=== PATIENT | male | born 1940 | race Caucasian/White ===

== ENCOUNTER 2016-07-08 14:29 | Inpatient (IN) ==
[2016-07-08] MEDS ORDERED: SODIUM CHLORIDE 0.9% 500 ML IV STA (15:41)
--- NOTE | 2016-07-08 16:02 | EKG Report ---
Stationary ECG Study [facility] ER Test Date: 07/08/2016 4:00:39 PM Pat Name: KERON PATEL Department: Room: Gender: M [employer]: REECE : 1940 Requested by: Albert Linder Order Number: [id number] Reading MD: DESTINI FOSTER Intervals [place] Rate: 100 P: 60 WA: 175 QRS: 64 QRSD: 95 T: -59 QT: 329 QTc: 386 Interpretive Statements SINUS TACHYCARDIA WITH OCCASIONAL VENTRICULAR PREMATURE COMPLEXES MODERATE T-WAVE ABNORMALITY, CONSIDER LATERAL ISCHEMIA MODERATE T-WAVE ABNORMALITY, CONSIDER INFERIOR ISCHEMIA Electronically Signed On 07-08-16 17:09:01 [employer]PERIMENT[employer] by DESTINI FOSTER [email or web address]
[2016-07-08 16:10] LABS: Basophils # 0.1 10*3/uL (0.0-0.2); Basophils % 0.3 % (0.0-0.8); Eosinophils # 0.1 10*3/uL (0.0-0.87); Eosinophils % 0.4 % (0.00-10.9); Hematocrit 43.1 VOL% (42.0-52.0); Hemoglobin 14.1 GM/DL (14.0-18.0); Immature Granulocytes % 0.7 %; Immature Granulocytes Absolute 0.22 #; Lymphocytes # 12.8 10*3/uL (1.4-4.0); Mean Corpuscular HGB Conc 32.7 GM/DL (32-36); Mean Corpuscular Hemoglobin 30 PG (27-34); Mean Corpuscular Volume 92.5 FL (87-102); Mean Platelet Volume 10.9 FL (9.6-12.0); Monocytes # 2.2 10*3/uL (0.11-0.8); Neutrophils # 16.5 10*3/uL (1.4-7.4); Neutrophils % 51.6 % (38.7-73.9); Platelet Count 168 10*3/uL (130-400); Red Blood Count 4.66 10*6/uL (3.8-5.5); Red Cell Distribution Width 14.2 % (9.3-17.3); White Blood Count 31.9 10*3/uL (4.5-13.71)
[2016-07-08 16:40] LABS: Blood Urea Nitrogen 16 MG/DL (7-18); Calcium 8.6 MG/DL (8.5-10.1); Glucose 127 MG/DL (74-106); Magnesium 2.2 MG/DL (1.8-2.4); Osmolality,Calculated 290.7 MOS/KG (273-304); Potassium 4.2 MMOL/L (3.5-5.1); Sodium 145 MMOL/L (136-145); Troponin I Only < 0.015 NG/ML (0.00-0.045)
--- NOTE | 2016-07-08 16:51 | XRay Report ---
XR chest 1V portable Indication: Shortness of breath and chest pain. Chest one view: Comparison 11/24/13. Pacemaker device, borderline cardiomegaly, postoperative changes median sternotomy are again shown. Diffuse parabronchial thickening has developed throughout. No discrete infiltrate shown. Calcified granulomata are stable. Impression: Mild/moderate airways disease such as bronchitis or viral syndrome. PROCEDURE INTERPRETED AT [facility] DEPARTMENT OF RADIOLOGY Final Report Signed by: Zheng Spangler M.D.
[2016-07-08] MEDS ORDERED: SODIUM CHLORIDE 0.9% 1,000 ML IV ONE (17:11)
--- NOTE | 2016-07-08 17:41 | XRay Report ---
XR abdomen 2V Indication: Nausea and vomiting with fever. Comparison: None. Technique: Flat and erect images of the abdomen were performed. Findings: Focal airspace opacification along the lateral aspect of the mid to lower right lung is suggested. This could reflect developing infectious process. Additionally, bilateral perihilar interstitial markings are prominent which are non-specific and may reflect chronic interstitial disease. Previous bypass surgery is suggested and AICD is present. Gallbladder surgically absent. No organomegaly suggested. The bowel gas pattern demonstrates no significant abnormality. Bones and soft tissues demonstrate no acute findings. Moderately advanced calcification of the femoral arteries is suggested. Impression: 1. No specific abnormality the bowel gas pattern is demonstrated. 2. Infectious process within the mid right lung involving the lateral parenchyma of the lung could be considered as detailed. 07/08/2016 5:37 PM PROCEDURE INTERPRETED AT [facility] DEPARTMENT OF RADIOLOGY Final Report Signed by: Dr. Martín Torres
[2016-07-08 17:54] LABS: Albumin 3.5 G/DL (3.4-5.0); Bilirubin,Direct 0.2 MG/DL (0.0-0.20); Bilirubin,Indirect 0.6 MG/DL (0.0-1.0); Bilirubin,Total 0.8 MG/DL (0.2-1.0); Total Protein 6.1 G/DL (6.4-8.3)
[2016-07-08] MEDS ORDERED: SODIUM CHLORIDE 0.9% 2,500 ML IV ONE (17:59)
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
[2016-07-08] MEDS ORDERED: SODIUM CHLORIDE 0.9% 500 ML IV ONE (18:50)
[2016-07-08 19:12] LABS: Apearance,Urine CLEAR (Clear); Bilirubin,Urine Negative (Negative); Blood, Urine Negative (Negative); Glucose,Urine (UA) Negative (Negative); Ketones,Urine Negative (Negative); Nitrite,Urine Negative (Negative); Protein,Urine Negative; Squamous Epithelial Cell,Urine Occasional /HPF (0-10); Urine Color Yellow (Yellow); Urine Specific Gravity 1.013 (1.001-1.035); Urine Urobilinogen < 2.0 EU/DL (0.2-1.0); WBC,Urine 1 /HPF (0-6)
[2016-07-08 19:14] LABS: Eosinophils 1 % (0-10); Lymphocytes 25 % (20-55); Platelet Estimate Normal; Segmented Neutrophils 68 % (50-85); Total Cells Counted 100
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
[2016-07-08] MEDS ORDERED: DEXTROSE 50% 25 GM/50 ML VIAL IV PRN (19:57)
[2016-07-08] MEDS ORDERED: GLUCAGON 1 MG VIAL IM PRN (19:57)
[2016-07-08] MEDS ORDERED: ONDANSETRON 4 MG/2 ML VIAL IV PRN (19:57)
[2016-07-08] MEDS: SODIUM CHLORIDE 0.9% 1,000 ML IV SCH (20:15)
[2016-07-08] MEDS ORDERED: AZTREONAM 2,000 MG in SODIUM CHLORIDE 0.9% 100 ML IV SCH (21:00)
[2016-07-08] MEDS ORDERED: SODIUM CHLORIDE 0.9% 1,000 ML IV SCH (21:20)
[2016-07-08] MEDS: LEVOFLOXACIN INJ 750 MG in PREMIX 1 EACH IV SCH (22:07)
[2016-07-08] MEDS: ENOXAPARIN 40 MG/0.4 ML SYRINGE SUBCUT SCH (22:11)
[2016-07-08] MEDS: BRIMONIDINE 0.1% OPH SOLN 5 ML BOTTLE BOTH EYES SCH (22:12)
[2016-07-08] MEDS: BENZONATATE 100 MG CAPSULE PO SCH (22:14)
[2016-07-08] MEDS: TAMSULOSIN 0.4 MG CAPSULE PO SCH (22:15)
[2016-07-08] MEDS: TEMAZEPAM 15 MG CAPSULE PO SCH (22:15)
[2016-07-08] MEDS: GABAPENTIN 300 MG CAPSULE PO SCH (22:15)
[2016-07-08] MEDS: THEOPHYLLINE ER 300 MG TABLET PO SCH (22:33)
[2016-07-08] MEDS: FLUTICASONE 50 MCG NASAL SPRAY 16 GM BOTTLE BOTH NARES SCH (22:34)
[2016-07-08] MEDS: INSULIN REGULAR 100 UNIT/ML SUBCUT SCH (22:35)
[2016-07-09] MEDS: AZTREONAM 2,000 MG in SODIUM CHLORIDE 0.9% 100 ML IV SCH ×4 (00:06→17:05)
[2016-07-09 06:43] LABS: Basophils # 0.1 10*3/uL (0.0-0.2); Basophils % 0.2 % (0.0-0.8); Eosinophils # 0.2 10*3/uL (0.0-0.87); Eosinophils % 0.7 % (0.00-10.9); Hematocrit 37.7 VOL% (42.0-52.0); Immature Granulocytes % 0.7 %; Immature Granulocytes Absolute 0.14 #; Lymphocytes % 47.2 % (21.2-54.2); Mean Corpuscular HGB Conc 31.8 GM/DL (32-36); Mean Corpuscular Hemoglobin 30 PG (27-34); Mean Corpuscular Volume 95.2 FL (87-102); Mean Platelet Volume 10.9 FL (9.6-12.0); Monocytes # 1.6 10*3/uL (0.11-0.8); Monocytes % 7.7 % (1.7-12.7); Neutrophils # 9.2 10*3/uL (1.4-7.4); Neutrophils % 43.5 % (38.7-73.9); Platelet Count 130 10*3/uL (130-400); Red Blood Count 3.96 10*6/uL (3.8-5.5); Red Cell Distribution Width 14.3 % (9.3-17.3); White Blood Count 21.2 10*3/uL (4.5-13.71)
[2016-07-09 07:13] LABS: Calcium 8.1 MG/DL (8.5-10.1); Osmolality,Calculated 293.3 MOS/KG (273-304); Potassium 4.1 MMOL/L (3.5-5.1)
[2016-07-09 07:31] LABS: Eosinophils 1 % (0-10); Hypochromasia 1+; Lymphocytes 36 % (20-55); Platelet Estimate Normal; Segmented Neutrophils 52 % (50-85); Total Cells Counted 100
[2016-07-09] MEDS: ALBUTEROL/IPRATROPIUM 3 ML NEB RESP TX SCH ×4 (07:51→19:31)
[2016-07-09] MEDS: FINASTERIDE 5 MG TABLET PO SCH (08:33)
[2016-07-09] MEDS: LISINOPRIL 5 MG TABLET PO SCH (08:33)
[2016-07-09] MEDS: THEOPHYLLINE ER 300 MG TABLET PO SCH ×2 (08:33→17:02)
[2016-07-09] MEDS: GABAPENTIN 300 MG CAPSULE PO SCH ×3 (08:33→20:24)
[2016-07-09] MEDS: CARVEDILOL 12.5 MG TABLET PO SCH ×2 (08:33→17:02)
[2016-07-09] MEDS: DUTASTERIDE 0.5 MG CAPSULE PO SCH (08:33)
[2016-07-09] MEDS: metFORMIN 500 MG TABLET PO SCH ×2 (08:34→17:05)
[2016-07-09] MEDS: TAMSULOSIN 0.4 MG CAPSULE PO SCH ×2 (08:34→20:21)
[2016-07-09] MEDS: FUROSEMIDE 40 MG TABLET PO SCH (08:34)
[2016-07-09] MEDS: MULTIVITAMIN (CENTRUM) TABLET PO SCH (08:34)
[2016-07-09] MEDS: SPIRONOLACTONE 25 MG TABLET PO SCH (08:34)
[2016-07-09] MEDS: SIMVASTATIN 40 MG TABLET PO SCH (08:34)
[2016-07-09] MEDS: ALLOPURINOL 300 MG TABLET PO SCH (08:34)
[2016-07-09] MEDS: ASPIRIN EC 325 MG TABLET PO SCH (08:34)
[2016-07-09] MEDS: GLIMEPIRIDE 4 MG TABLET PO SCH (08:34)
[2016-07-09] MEDS: BENZONATATE 100 MG CAPSULE PO SCH (08:34)
[2016-07-09] MEDS: INSULIN REGULAR 100 UNIT/ML SUBCUT SCH ×4 (08:36→21:21)
[2016-07-09] MEDS: BRIMONIDINE 0.1% OPH SOLN 5 ML BOTTLE BOTH EYES SCH ×3 (08:40→20:22)
--- NOTE | 2016-07-09 09:10 | Oncology Progress Note ---
Oncology Subjective PN Interval history: Patient followed for approximately 2 years with untreated CLL. He is followed by Dr. Kirk Myers and Dr. Mary Carrington. He is admitted with malaise and chills. He states he had a hard shaking chills 3 weeks ago which required an electric blanket to resolve the episode. This similar feeling recurred yesterday and he sought medical care and was admitted overnight. This morning he appears nontoxic. He does report a clinical history of COPD. He is receiving aggressive antibiotics at this time. He has an acceptable hemoglobin and platelet count. Today's white blood cell count is 21,000 which is not felt to be changed significantly from prior baseline levels. No specific leukemia recommendations. Continue treatment as ordered Exam - Constitutional Vitals: Period Temp Pulse Resp BP Sys/Umana Pulse Ox Last 24 Hr 98.2 F-99.6 F 63-91 16-20 91-107/42-53 96-100 Results - Labs CBC & BMP: 07/09/16 06:25 07/09/16 06:25 Specialty Discharge - Follow Up or Referrals - Discharge Medications No Action Allopurinol 300 mg PO DAILY Benzonatate 100 mg PO TID Brimonidine 0.1% Oph Soln [Alphagan P 0.1% Oph Soln] 1 drop BOTH EYES TID Carvedilol [Carvedilol] 12.5 mg PO BID W/MEALS Dutasteride [Avodart] 0.5 mg PO DAILY Finasteride [Finasteride] 5 mg PO DAILY Fluticasone 50 Mcg Nasal [place] [Flonase Nasal [place]] 1 spray BOTH NARES DAILY Gabapentin [Gabapentin] 300 mg PO TID Glimepiride 4 mg PO DAILY Lisinopril [Lisinopril] 5 mg PO DAILY Multivitamin [Multivitamins] 1 tablet PO DAILY Simvastatin [Simvastatin] 40 mg PO DAILY Spironolactone [Spironolactone] 25 mg PO DAILY Tamsulosin HCl [Tamsulosin HCl] 0.4 mg PO BID Temazepam [Temazepam] 30 mg PO BEDTIME Theophylline ER Tab 300 mg PO BID W/MEALS Albuterol/Ipratropium Neb [Duoneb] 3 ml RESP TX RT Q6H Aspirin EC Tab 325 mg PO DAILY Furosemide [Furosemide] 40 mg PO DAILY Metformin HCl [Metformin HCl] 500 mg PO BID W/MEALS
[2016-07-09] MEDS: ACETAMINOPHEN 325 MG TABLET PO PRN (09:36)
[2016-07-09] MEDS: DOXYCYCLINE HYCLATE INJ 100 MG in SODIUM CHLORIDE 0.9% 100 ML IV SCH ×2 (09:37→20:22)
[2016-07-09] MEDS: SODIUM CHLORIDE 0.9% 1,000 ML IV SCH ×3 (09:37→21:22)
--- NOTE | 2016-07-09 11:22 | Hospitalist Progress Note ---
Assessment and Plan (1) CLL (chronic lymphocytic leukemia) Status: Acute Assessment and plan: seen by Oncology appreciate input Current Visit: Yes (2) Hypertension Status: Chronic Current Visit: Yes Qualifiers: Hypertension type: essential hypertension Qualified Code(s): I10 - Essential (primary) hypertension (3) Diabetes mellitus Status: Chronic Current Visit: Yes Qualifiers: Diabetes mellitus type: type 2 (4) Upper respiratory infection Status: Acute Assessment and plan: cannot completely exclude PNA, continue abx, PRN cough medicine Current Visit: Yes Hospitalist: Subjective Interval history: 75-year-old male with history of CLL who presented complaining of her respiratory symptoms. On presentation had a white count 21,[address] Renae to be his baseline. Currently he states his little better still have states dry cough. Exam - Constitutional Vitals: Period Temp Pulse Resp BP Sys/[place] Pulse Ox Last 24 Hr 97.7 F-99.6 F 63-91 16-20 91-118/42-56 96-100 General appearance: no acute distress - Head Head exam: Present: normocephalic, atraumatic - Eye Eye exam: Present: EOMI Pupils: Present: VISHAL - Neck Neck exam: Present: normal inspection - Respiratory Respiratory exam: Present: clear to auscultation bilaterally, other (dry hacking cough) - Cardiovascular Cardiovascular exam: Present: regular rate and rhythm - GI/Abdominal GI/Abdominal exam: Present: normal bowel sounds, soft - Extremities Exam Extremities exam: Present: full ROM - Neurological Exam Neurological exam: Present: alert, oriented X3, CN II-XII intact - Psychiatric Psychiatric exam: Present: normal affect, normal mood - Skin Skin exam: Present: warm, intact Results - Labs CBC & BMP: 07/09/16 06:25 07/09/16 06:25 Specialty Discharge - Follow Up or Referrals - Discharge Medications No Action Allopurinol 300 mg PO DAILY Benzonatate 100 mg PO TID Brimonidine 0.1% Oph Soln [Alphagan P 0.1% Oph Soln] 1 drop BOTH EYES TID Carvedilol [Carvedilol] 12.5 mg PO BID W/MEALS Dutasteride [Avodart] 0.5 mg PO DAILY Finasteride [Finasteride] 5 mg PO DAILY Fluticasone 50 Mcg Nasal [place] [Flonase Nasal [place]] 1 spray BOTH NARES DAILY Gabapentin [Gabapentin] 300 mg PO TID Glimepiride 4 mg PO DAILY Lisinopril [Lisinopril] 5 mg PO DAILY Multivitamin [Multivitamins] 1 tablet PO DAILY Simvastatin [Simvastatin] 40 mg PO DAILY Spironolactone [Spironolactone] 25 mg PO DAILY Tamsulosin HCl [Tamsulosin HCl] 0.4 mg PO BID Temazepam [Temazepam] 30 mg PO BEDTIME Theophylline ER Tab 300 mg PO BID W/MEALS Albuterol/Ipratropium Neb [Duoneb] 3 ml RESP TX RT Q6H Aspirin EC Tab 325 mg PO DAILY Furosemide [Furosemide] 40 mg PO DAILY Metformin HCl [Metformin HCl] 500 mg PO BID W/MEALS
[2016-07-09] MEDS: ENOXAPARIN 40 MG/0.4 ML SYRINGE SUBCUT SCH (19:29)
[2016-07-09] MEDS: TEMAZEPAM 15 MG CAPSULE PO SCH (20:21)
[2016-07-09] MEDS: LEVOFLOXACIN INJ 750 MG in PREMIX 1 EACH IV SCH (20:22)
[2016-07-09] MEDS: FLUTICASONE 50 MCG NASAL SPRAY 16 GM BOTTLE BOTH NARES SCH (20:22)
[2016-07-10] MEDS: ALBUTEROL/IPRATROPIUM 3 ML NEB RESP TX SCH ×4 (00:39→19:31)
[2016-07-10] MEDS: AZTREONAM 2,000 MG in SODIUM CHLORIDE 0.9% 100 ML IV SCH ×5 (01:02→23:03)
[2016-07-10] MEDS: SODIUM CHLORIDE 0.9% 1,000 ML IV SCH ×4 (02:22→21:05)
[2016-07-10 06:50] LABS: Basophils # 0.1 10*3/uL (0.0-0.2); Basophils % 0.2 % (0.0-0.8); Eosinophils # 0.2 10*3/uL (0.0-0.87); Eosinophils % 0.8 % (0.00-10.9); Hematocrit 36.5 VOL% (42.0-52.0); Hemoglobin 11.6 GM/DL (14.0-18.0); Immature Granulocytes % 0.6 %; Immature Granulocytes Absolute 0.14 #; Lymphocytes # 12.6 10*3/uL (1.4-4.0); Lymphocytes % 53.4 % (21.2-54.2); Mean Corpuscular HGB Conc 31.8 GM/DL (32-36); Mean Corpuscular Hemoglobin 30 PG (27-34); Mean Corpuscular Volume 93.6 FL (87-102); Mean Platelet Volume 11.3 FL (9.6-12.0); Monocytes # 1.8 10*3/uL (0.11-0.8); Monocytes % 7.8 % (1.7-12.7); Neutrophils # 8.8 10*3/uL (1.4-7.4); Neutrophils % 37.2 % (38.7-73.9); Platelet Count 147 10*3/uL (130-400); Red Cell Distribution Width 14.4 % (9.3-17.3); White Blood Count 23.6 10*3/uL (4.5-13.71)
[2016-07-10] MEDS: DOXYCYCLINE HYCLATE INJ 100 MG in SODIUM CHLORIDE 0.9% 100 ML IV SCH ×2 (09:10→20:57)
[2016-07-10] MEDS: TAMSULOSIN 0.4 MG CAPSULE PO SCH ×2 (09:10→20:58)
[2016-07-10] MEDS: metFORMIN 500 MG TABLET PO SCH ×2 (09:10→16:35)
[2016-07-10] MEDS: BRIMONIDINE 0.1% OPH SOLN 5 ML BOTTLE BOTH EYES SCH ×3 (09:10→20:58)
--- NOTE | 2016-07-10 09:10 | Hospitalist Progress Note ---
Assessment and Plan (1) CLL (chronic lymphocytic leukemia) Status: Acute Assessment and plan: seen by Oncology appreciate input Current Visit: Yes (2) Hypertension Status: Chronic Current Visit: Yes Qualifiers: Hypertension type: essential hypertension Qualified Code(s): I10 - Essential (primary) hypertension (3) Diabetes mellitus Status: Chronic Current Visit: Yes Qualifiers: Diabetes mellitus type: type 2 (4) Upper respiratory infection Status: Acute Assessment and plan: cannot completely exclude PNA, continue abx, PRN cough medicine 07/10/16: abdominal xray revealed a RML infiltrate, continue abx. Current Visit: Yes Hospitalist: Subjective Interval history: 75-year-old male with history of CLL who was admitted complaining of upper respiratory symptoms. He had a white count around 20,000. Oncology did see him and see this is around his baseline. It appears that he has a right middle lobe pneumonia which were being treated. This morning he states he is feeling well. Exam - Constitutional Vitals: Period Temp Pulse Resp BP Sys/[place] Pulse Ox Last 24 Hr 98.2 F-99 F 60-89 16-20 98-128/48-72 90-100 Exam: appears as if he doesn't feel well denies any chest pain. - Head Head exam: Present: normocephalic - Eye Eye exam: Present: EOMI Pupils: Present: VISHAL - Neck Neck exam: Present: normal inspection - Respiratory Respiratory exam: Present: clear to auscultation bilaterally - Cardiovascular Cardiovascular exam: Present: regular rate and rhythm - GI/Abdominal GI/Abdominal exam: Present: normal bowel sounds, soft - Extremities Exam Extremities exam: Present: full ROM - Neurological Exam Neurological exam: Present: alert, oriented X3, CN II-XII intact - Psychiatric Psychiatric exam: Present: normal affect, normal mood Results - Labs CBC & BMP: 07/10/16 06:35 07/09/16 06:25 - Diagnostic Findings Procedure: KUB x-ray: report reviewed by me (right middle lobe infiltrate with stranding) Specialty Discharge - Follow Up or Referrals - Discharge Medications No Action Allopurinol 300 mg PO DAILY Benzonatate 100 mg PO TID Brimonidine 0.1% Oph Soln [Alphagan P 0.1% Oph Soln] 1 drop BOTH EYES TID Carvedilol [Carvedilol] 12.5 mg PO BID W/MEALS Dutasteride [Avodart] 0.5 mg PO DAILY Finasteride [Finasteride] 5 mg PO DAILY Fluticasone 50 Mcg Nasal [place] [Flonase Nasal [place]] 1 spray BOTH NARES DAILY Gabapentin [Gabapentin] 300 mg PO TID Glimepiride 4 mg PO DAILY Lisinopril [Lisinopril] 5 mg PO DAILY Multivitamin [Multivitamins] 1 tablet PO DAILY Simvastatin [Simvastatin] 40 mg PO DAILY Spironolactone [Spironolactone] 25 mg PO DAILY Tamsulosin HCl [Tamsulosin HCl] 0.4 mg PO BID Temazepam [Temazepam] 30 mg PO BEDTIME PRN PRN Reason: Insomnia Theophylline ER Tab 300 mg PO BID W/MEALS Albuterol/Ipratropium Neb [Duoneb] 3 ml RESP TX RT Q6H Aspirin EC Tab 325 mg PO DAILY Furosemide [Furosemide] 40 mg PO DAILY Metformin HCl [Metformin HCl] 500 mg PO BID W/MEALS
[2016-07-10] MEDS: CARVEDILOL 12.5 MG TABLET PO SCH ×2 (09:11→16:35)
[2016-07-10] MEDS: FUROSEMIDE 40 MG TABLET PO SCH (09:11)
[2016-07-10] MEDS: LISINOPRIL 5 MG TABLET PO SCH (09:11)
[2016-07-10] MEDS: SPIRONOLACTONE 25 MG TABLET PO SCH (09:11)
[2016-07-10] MEDS: GLIMEPIRIDE 4 MG TABLET PO SCH (09:11)
[2016-07-10] MEDS: GABAPENTIN 300 MG CAPSULE PO SCH ×3 (09:11→20:58)
[2016-07-10] MEDS: ALLOPURINOL 300 MG TABLET PO SCH (09:11)
[2016-07-10] MEDS: ASPIRIN EC 325 MG TABLET PO SCH (09:11)
[2016-07-10] MEDS: FINASTERIDE 5 MG TABLET PO SCH (09:11)
[2016-07-10] MEDS: THEOPHYLLINE ER 300 MG TABLET PO SCH ×2 (09:11→16:35)
[2016-07-10] MEDS: INSULIN REGULAR 100 UNIT/ML SUBCUT SCH ×4 (09:12→21:05)
[2016-07-10] MEDS: MULTIVITAMIN (CENTRUM) TABLET PO SCH (09:12)
[2016-07-10] MEDS: DUTASTERIDE 0.5 MG CAPSULE PO SCH (09:12)
[2016-07-10] MEDS: SIMVASTATIN 40 MG TABLET PO SCH (09:12)
[2016-07-10 09:51] LABS: Eosinophils 2 % (0-10); Hypochromasia 1+; Lymphocytes 36 % (20-55); Microcytosis 1+; Platelet Estimate Adequate; Segmented Neutrophils 58 % (50-85); Total Cells Counted 100
[2016-07-10] MEDS: ENOXAPARIN 40 MG/0.4 ML SYRINGE SUBCUT SCH (19:06)
[2016-07-10] MEDS: FLUTICASONE 50 MCG NASAL SPRAY 16 GM BOTTLE BOTH NARES SCH (20:58)
[2016-07-10] MEDS: TEMAZEPAM 15 MG CAPSULE PO SCH (20:58)
[2016-07-10] MEDS: HYDROcodone/HOMATROPINE 5 ML UDCUP PO PRN (21:02)
[2016-07-10] MEDS: ALUMINUM/MAGNES/SIMETH MAX STR 30 ML UDCUP PO PRN (23:25)
[2016-07-11] MEDS: ALBUTEROL/IPRATROPIUM 3 ML NEB RESP TX SCH ×4 (00:08→20:14)
[2016-07-11] MEDS: AZTREONAM 2,000 MG in SODIUM CHLORIDE 0.9% 100 ML IV SCH ×3 (05:22→17:01)
[2016-07-11 06:26] LABS: Basophils # 0.1 10*3/uL (0.0-0.2); Basophils % 0.2 % (0.0-0.8); Eosinophils # 0.3 10*3/uL (0.0-0.87); Eosinophils % 1.1 % (0.00-10.9); Hematocrit 39.1 VOL% (42.0-52.0); Hemoglobin 12.4 GM/DL (14.0-18.0); Immature Granulocytes % 0.7 %; Immature Granulocytes Absolute 0.17 #; Lymphocytes # 14.4 10*3/uL (1.4-4.0); Lymphocytes % 58.2 % (21.2-54.2); Mean Corpuscular HGB Conc 31.7 GM/DL (32-36); Mean Corpuscular Hemoglobin 30 PG (27-34); Mean Corpuscular Volume 94.7 FL (87-102); Mean Platelet Volume 11.2 FL (9.6-12.0); Monocytes # 1.5 10*3/uL (0.11-0.8); Neutrophils # 8.3 10*3/uL (1.4-7.4); Neutrophils % 33.8 % (38.7-73.9); Platelet Count 138 10*3/uL (130-400); Red Blood Count 4.13 10*6/uL (3.8-5.5); Red Cell Distribution Width 14.2 % (9.3-17.3); White Blood Count 24.7 10*3/uL (4.5-13.71)
[2016-07-11 06:59] LABS: Band Neutrophils 1 % (0-10); Eosinophils 3 % (0-10); Hypochromasia 1+; Lymphocytes 39 % (20-55); Segmented Neutrophils 54 % (50-85); Total Cells Counted 100
[2016-07-11 07:00] LABS: Atypical Lymphocytes Few; Calcium 8.1 MG/DL (8.5-10.1); Osmolality,Calculated 287.4 MOS/KG (273-304); Platelet Estimate Adequate; Potassium 4.1 MMOL/L (3.5-5.1); Smudge Cells Few
--- NOTE | 2016-07-11 08:08 | Hospitalist Progress Note ---
Assessment and Plan (1) Upper respiratory infection Status: Acute Assessment and plan: Patient seems to be improving may be ready for discharge home tomorrow Current Visit: Yes (2) CLL (chronic lymphocytic leukemia) Status: Acute Current Visit: Yes Hospitalist: Subjective Interval history: Patient without complaints this morning Exam - Constitutional Vitals: Period Temp Pulse Resp BP Sys/[place] Pulse Ox Last 24 Hr 97.0 F-99.7 F 64-98 18-20 95-140/46-73 92-99 Exam: Constitutional: General appearance is normal Eyes: Pupils equal round react to light and accommodation conjunctiva and lids are normal Neck: supple without masses Respiratory: Respiratory effort is normal. Lungs are clear to auscultation. Resonant to percussion. Cardiac: Regular rate and rhythm without murmur rub or gallop. PMI at the midclavicular line by palpation. Carotid arteries 2+ palpation no bruits GI: Bowel sounds normoactive, no tenderness or rebound tenderness, no organomegaly Extremities: no clubbing cyanosis or edema Results - Labs CBC & BMP: 07/11/16 05:53 07/11/16 05:53 Specialty Discharge - Follow Up or Referrals - Discharge Medications No Action Allopurinol 300 mg PO DAILY Benzonatate 100 mg PO TID Brimonidine 0.1% Oph Soln [Alphagan P 0.1% Oph Soln] 1 drop BOTH EYES TID Carvedilol [Carvedilol] 12.5 mg PO BID W/MEALS Dutasteride [Avodart] 0.5 mg PO DAILY Finasteride [Finasteride] 5 mg PO DAILY Fluticasone 50 Mcg Nasal [place] [Flonase Nasal [place]] 1 spray BOTH NARES DAILY Gabapentin [Gabapentin] 300 mg PO TID Glimepiride 4 mg PO DAILY Lisinopril [Lisinopril] 5 mg PO DAILY Multivitamin [Multivitamins] 1 tablet PO DAILY Simvastatin [Simvastatin] 40 mg PO DAILY Spironolactone [Spironolactone] 25 mg PO DAILY Tamsulosin HCl [Tamsulosin HCl] 0.4 mg PO BID Temazepam [Temazepam] 30 mg PO BEDTIME PRN PRN Reason: Insomnia Theophylline ER Tab 300 mg PO BID W/MEALS Albuterol/Ipratropium Neb [Duoneb] 3 ml RESP TX RT Q6H Aspirin EC Tab 325 mg PO DAILY Furosemide [Furosemide] 40 mg PO DAILY Metformin HCl [Metformin HCl] 500 mg PO BID W/MEALS
[2016-07-11] MEDS: INSULIN REGULAR 100 UNIT/ML SUBCUT SCH ×4 (09:24→20:32)
[2016-07-11] MEDS: DUTASTERIDE 0.5 MG CAPSULE PO SCH (09:25)
[2016-07-11] MEDS: TAMSULOSIN 0.4 MG CAPSULE PO SCH ×2 (09:25→20:32)
[2016-07-11] MEDS: ASPIRIN EC 325 MG TABLET PO SCH (09:25)
[2016-07-11] MEDS: FUROSEMIDE 40 MG TABLET PO SCH (09:26)
[2016-07-11] MEDS: LISINOPRIL 5 MG TABLET PO SCH (09:26)
[2016-07-11] MEDS: ALLOPURINOL 300 MG TABLET PO SCH (09:26)
[2016-07-11] MEDS: SPIRONOLACTONE 25 MG TABLET PO SCH (09:26)
[2016-07-11] MEDS: THEOPHYLLINE ER 300 MG TABLET PO SCH ×2 (09:26→16:20)
[2016-07-11] MEDS: FINASTERIDE 5 MG TABLET PO SCH (09:26)
[2016-07-11] MEDS: SIMVASTATIN 40 MG TABLET PO SCH (09:26)
[2016-07-11] MEDS: GABAPENTIN 300 MG CAPSULE PO SCH ×3 (09:26→20:31)
[2016-07-11] MEDS: MULTIVITAMIN (CENTRUM) TABLET PO SCH (09:26)
[2016-07-11] MEDS: CARVEDILOL 12.5 MG TABLET PO SCH ×2 (09:27→16:20)
[2016-07-11] MEDS: BRIMONIDINE 0.1% OPH SOLN 5 ML BOTTLE BOTH EYES SCH ×3 (09:27→20:32)
[2016-07-11] MEDS: metFORMIN 500 MG TABLET PO SCH ×2 (09:27→16:57)
[2016-07-11] MEDS: GLIMEPIRIDE 4 MG TABLET PO SCH (09:27)
[2016-07-11] MEDS: DOXYCYCLINE HYCLATE INJ 100 MG in SODIUM CHLORIDE 0.9% 100 ML IV SCH ×2 (09:28→20:33)
[2016-07-11] MEDS: PANTOPRAZOLE 40 MG TABLET PO SCH (11:52)
[2016-07-11] MEDS: HYDROcodone/HOMATROPINE 5 ML UDCUP PO PRN ×2 (11:54→20:59)
[2016-07-11] MEDS: ALUMINUM/MAGNES/SIMETH MAX STR 30 ML UDCUP PO PRN (16:57)
[2016-07-11] MEDS: ENOXAPARIN 40 MG/0.4 ML SYRINGE SUBCUT SCH (20:31)
[2016-07-11] MEDS: FLUTICASONE 50 MCG NASAL SPRAY 16 GM BOTTLE BOTH NARES SCH (20:32)
[2016-07-11] MEDS: TEMAZEPAM 15 MG CAPSULE PO SCH (20:32)
[2016-07-11] MEDS: SODIUM CHLORIDE 0.9% 1,000 ML IV SCH (20:33)
[2016-07-11] MEDS: ACETAMINOPHEN 325 MG TABLET PO PRN (20:59)
[2016-07-12] MEDS: AZTREONAM 2,000 MG in SODIUM CHLORIDE 0.9% 100 ML IV SCH ×4 (00:21→18:19)
[2016-07-12] MEDS: ALBUTEROL/IPRATROPIUM 3 ML NEB RESP TX SCH ×3 (00:58→13:58)
[2016-07-12] MEDS: HYDROcodone/HOMATROPINE 5 ML UDCUP PO PRN ×2 (03:57→08:39)
[2016-07-12] MEDS: SODIUM CHLORIDE 0.9% 1,000 ML IV SCH (03:57)
[2016-07-12] MEDS: INSULIN REGULAR 100 UNIT/ML SUBCUT SCH ×3 (07:38→16:16)
[2016-07-12] MEDS: TAMSULOSIN 0.4 MG CAPSULE PO SCH (08:39)
[2016-07-12] MEDS: GLIMEPIRIDE 4 MG TABLET PO SCH (08:39)
[2016-07-12] MEDS: THEOPHYLLINE ER 300 MG TABLET PO SCH ×2 (08:39→16:44)
[2016-07-12] MEDS: ALLOPURINOL 300 MG TABLET PO SCH (08:39)
[2016-07-12] MEDS: LISINOPRIL 5 MG TABLET PO SCH (08:39)
[2016-07-12] MEDS: CARVEDILOL 12.5 MG TABLET PO SCH ×2 (08:39→16:44)
[2016-07-12] MEDS: ASPIRIN EC 325 MG TABLET PO SCH (08:39)
[2016-07-12] MEDS: MULTIVITAMIN (CENTRUM) TABLET PO SCH (08:39)
[2016-07-12] MEDS: DUTASTERIDE 0.5 MG CAPSULE PO SCH (08:39)
[2016-07-12] MEDS: FUROSEMIDE 40 MG TABLET PO SCH (08:39)
[2016-07-12] MEDS: FINASTERIDE 5 MG TABLET PO SCH (08:40)
[2016-07-12] MEDS: metFORMIN 500 MG TABLET PO SCH ×2 (08:40→16:44)
[2016-07-12] MEDS: BRIMONIDINE 0.1% OPH SOLN 5 ML BOTTLE BOTH EYES SCH ×2 (08:40→14:53)
[2016-07-12] MEDS: SIMVASTATIN 40 MG TABLET PO SCH (08:40)
[2016-07-12] MEDS: PANTOPRAZOLE 40 MG TABLET PO SCH (08:40)
[2016-07-12] MEDS: SPIRONOLACTONE 25 MG TABLET PO SCH (08:40)
[2016-07-12] MEDS: GABAPENTIN 300 MG CAPSULE PO SCH ×2 (08:41→14:51)
[2016-07-12] MEDS: ACETAMINOPHEN 325 MG TABLET PO PRN (08:48)
[2016-07-12] MEDS: DOXYCYCLINE HYCLATE INJ 100 MG in SODIUM CHLORIDE 0.9% 100 ML IV SCH (09:18)
--- NOTE | 2016-07-12 11:56 | EKG Report ---
Stationary ECG Study [facility] Test Date: 07/12/2016 11:55:11 AM Pat Name: KERON PATEL Department: Room: 529 Gender: M Public Relations Consultant: SIDRA : [id number] Requested by: Dagoberto Morrell Order Number: [id number] Reading MD: SALLY MELARA Intervals [place] Rate: 63 P: 95 ID: [id number] QRS: 76 QRSD: 107 T: -90 QT: 405 QTc: 412 Interpretive Statements ELECTRONIC ATRIAL PACEMAKER MODERATE T-WAVE ABNORMALITY, CONSIDER INFERIOR ISCHEMIA Electronically Signed On 07-12-16 12:13:34 [employer] by SALLY MELARA [email or web address]
[2016-07-12 13:42] LABS: Calcium 8.2 MG/DL (8.5-10.1); Magnesium 1.8 MG/DL (1.8-2.4); Osmolality,Calculated 288.7 MOS/KG (273-304); Potassium 3.8 MMOL/L (3.5-5.1)
[2016-07-12 16:35] VITALS: BP 104/55
--- NOTE | 2016-07-12 17:36 | Discharge Summary ---
Hospital Course - Hospital Course Hospital Course: I have only seen the patient on the day of discharge and I have summarized the hospital course based on the previous notes and patient status on the discharge day. Patient is a 75-year-old male with a history of untreated CLL was admitted originally on 07/08/2016 for possible sepsis secondary to pneumonia but upon laboratory, imaging, and clinical investigation it was found out that the patient has possible bronchitis/URTI and that he is on no therapy for his CLL. Patient was treated with empiric intravenous antibiotics. Blood cultures were negative and patient was also negative for group A strep and influenza types a and B in terms of their tests. Chest x-ray showed evidence of possible bronchitis/ upper respiratory tract infection. Over the course of admission the patient's symptoms improved and the patient was stable to be discharged home. Patient was offered physical therapy evaluation but he declined it and he stated that he is stable and he uses a cane and he is able to take care of himself as he lives with his and stated if needed he will follow on that with his primary care physician. Patient was discharged on a course of antibiotics and his home medications were reviewed accordingly. Patient will be following up with his primary care physician and also with his oncologist. - Time spent with patient Time with patient DS: Greater than 30 minutes Diagnosis - Discharge Diagnosis (1) CLL (chronic lymphocytic leukemia) Status: Chronic (2) Upper respiratory infection Status: Acute Specialty Discharge - Follow Up or Referrals - Discharge Medications New Doxycycline Hyclate 100 mg PO RT Q12H #10 tablet Continue Allopurinol 300 mg PO DAILY Benzonatate 100 mg PO TID Brimonidine 0.1% Oph Soln [Alphagan P 0.1% Oph Soln] 1 drop BOTH EYES TID Carvedilol 12.5 mg PO BID W/MEALS Dutasteride [Avodart] 0.5 mg PO DAILY Finasteride 5 mg PO DAILY Fluticasone 50 Mcg Nasal [place] [Flonase Nasal [place]] 1 spray BOTH NARES DAILY Gabapentin 300 mg PO TID Glimepiride 4 mg PO DAILY Lisinopril 5 mg PO DAILY Multivitamin [Multivitamins] 1 tablet PO DAILY Simvastatin 40 mg PO DAILY Spironolactone 25 mg PO DAILY Tamsulosin HCl 0.4 mg PO BID Temazepam 30 mg PO BEDTIME PRN PRN Reason: Insomnia Theophylline ER Tab 300 mg PO BID W/MEALS Albuterol/Ipratropium Neb [Duoneb] 3 ml RESP TX RT Q6H Aspirin EC Tab 325 mg PO DAILY Furosemide 40 mg PO DAILY Metformin HCl 500 mg PO BID W/MEALS Discharge Plan - Discharge Data Disposition: Disch To Home/Self Care Condition at Discharge: Stable Discharge Diet: advance to your usual diet Activity: resume usual activities as tolerated Contact your physician if you experience:: fever over 101 - Discharge Medications New Doxycycline Hyclate 100 mg PO RT Q12H #10 tablet Continue Allopurinol 300 mg PO DAILY Benzonatate 100 mg PO TID Brimonidine 0.1% Oph Soln [Alphagan P 0.1% Oph Soln] 1 drop BOTH EYES TID Carvedilol 12.5 mg PO BID W/MEALS Dutasteride [Avodart] 0.5 mg PO DAILY Finasteride 5 mg PO DAILY Fluticasone 50 Mcg Nasal [place] [Flonase Nasal [place]] 1 spray BOTH NARES DAILY Gabapentin 300 mg PO TID Glimepiride 4 mg PO DAILY Lisinopril 5 mg PO DAILY Multivitamin [Multivitamins] 1 tablet PO DAILY Simvastatin 40 mg PO DAILY Spironolactone 25 mg PO DAILY Tamsulosin HCl 0.4 mg PO BID Temazepam 30 mg PO BEDTIME PRN PRN Reason: Insomnia Theophylline ER Tab 300 mg PO BID W/MEALS Albuterol/Ipratropium Neb [Duoneb] 3 ml RESP TX RT Q6H Aspirin EC Tab 325 mg PO DAILY Furosemide 40 mg PO DAILY Metformin HCl 500 mg PO BID W/MEALS - Follow Up or Referral - Forms/Instructions Instructions: Doxycycline (By mouth), Viral Pneumonia (DC), Chronic Lymphocytic Leukemia (DC), Sepsis (DC) Exam - Constitutional Vitals: Period Temp Pulse Resp BP Sys/[place] Pulse Ox Last 24 Hr 98.1 F-99.0 F 63-94 12-20 81-119/39-72 92-99 Exam: gen a&ox3, nad neck: no jvd heart: s1s2+, rrr lung: cta, no wheezing abd: soft, NT Ext: no cyanosis, trace edema Discharge Results Labs on day of discharge: Labs from last 24 hours 07/12/16 07/12/16 07/12/16 15:41 12:17 12:14 Sodium 145 Potassium 3.8 Chloride 108 H Carbon Dioxide 29 Anion Gap 11.8 BUN 12 Creatinine 1.00 GFR Calculation 82 BUN/Creatinine Ratio 12.00 Glucose 115 H POC Glucose 135 H 142 H Calculated Osmolality 288.7 Calcium 8.2 L Magnesium 1.8 07/12/16 07/12/16 07/11/16 11:17 07:15 19:49 Sodium Potassium Chloride Carbon Dioxide Anion Gap BUN Creatinine GFR Calculation BUN/Creatinine Ratio Glucose POC Glucose 163 H 103 161 H Calculated Osmolality Calcium Magnesium DS: Provider Date of admission: 07/08/16 17:51 Primary care physician: . No PCP Attending physician on admission: Barbara Dumas MD Consults: 07/08/16 19:57 Consult to Physician [CONS] Routine Comment: known to you, leukemia Consulting Provider: Zheng Davis Person Notified: Elissa Date Notified: 07/09/16 Consult Notification Comment: Dr. Davis made aware on rounds at 0845 07/08/16 20:06 Consult to Pharmacy [CONS] Routine Reason for Pharmacy Consult: Adjust Meds Renal Funct Discharging clinician: Dagoberto Morrell
== END 2016-07-12 18:53 | disposition home or self-care (01) | DRG 191 ==
LOC: EDBD → EDUNIT# → MERGE 14:29 → N.ED 14:29 → N.EDINP 17:51 → SUATTDRO 17:51 → N.5E 19:23
PROVIDERS: ADMIT Family Medicine; ATTEND Student in an Organized Health Care Education/Training Program

== ENCOUNTER 2016-09-11 12:51 | Inpatient (IN) ==
[2016-09-11] MEDS ORDERED: FUROSEMIDE 100 MG/10 ML VIAL IV STA (13:11)
[2016-09-11] MEDS ORDERED: methylPREDNISolone SOD SUC 125 MG/2 ML VIAL IV STA (13:11)
[2016-09-11] MEDS ORDERED: ONDANSETRON 4 MG/2 ML VIAL IV STA (13:11)
[2016-09-11] MEDS ORDERED: LEVOFLOXACIN INJ 750 MG in PREMIX 1 EACH IV STA (13:11)
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
[2016-09-11] MEDS ORDERED: FUROSEMIDE 100 MG/10 ML VIAL ONE (13:18)
[2016-09-11] MEDS ORDERED: ONDANSETRON 4 MG/2 ML VIAL ONE (13:18)
[2016-09-11] MEDS ORDERED: methylPREDNISolone SOD SUC 125 MG/2 ML VIAL ONE (13:18)
--- NOTE | 2016-09-11 13:25 | XRay Report ---
Portable chest Date: 09/11/2016 Clinical history: Shortness of breath Comparison: 07/08/2016 Technique: Portable AP sitting chest Findings: The heart remains borderline in size with calcification in the wall of the tortuous aorta. Prior median sternotomy with left subclavian atrioventricular AICD. Progressive diffuse parenchymal findings in the right mid-lower lung zone. Stable mediastinum with degenerative changes. Impression: Status post median sternotomy with chronic scarring and stable left subclavian atrioventricular AICD. Progressive parenchymal findings in the right mid to lower lung zone which can be seen with pneumonia. However there is somewhat ill-defined rounded density superiorly within this finding and follow-up is recommended to document clearing and exclude additional underlying pathology. PROCEDURE INTERPRETED AT [facility] DEPARTMENT OF RADIOLOGY Final Report Signed by: Dr. Elisa Tobar
[2016-09-11] MEDS ORDERED: ALBUTEROL 2.5 MG/3 ML NEB RESP TX SCH (13:30)
[2016-09-11 13:41] LABS: Basophils # 0.1 10*3/uL (0.0-0.2); Basophils % 0.3 % (0.0-0.8); Hematocrit 46.6 VOL% (42.0-52.0); Immature Granulocytes % 0.4 %; Immature Granulocytes Absolute 0.09 #; Lymphocytes # 7.3 10*3/uL (1.4-4.0); Lymphocytes % 36.3 % (21.2-54.2); Mean Corpuscular HGB Conc 32.2 GM/DL (32-36); Mean Corpuscular Hemoglobin 30 PG (27-34); Mean Corpuscular Volume 93.4 FL (87-102); Mean Platelet Volume 11.2 FL (9.6-12.0); Monocytes # 1.6 10*3/uL (0.11-0.8); Monocytes % 7.9 % (1.7-12.7); Neutrophils # 11.1 10*3/uL (1.4-7.4); Neutrophils % 55.1 % (38.7-73.9); Platelet Count 154 T/CUMM (130-400); Red Blood Count 4.99 MC/CUMM (3.8-5.5); Red Cell Distribution Width 13.6 % (9.3-17.3); White Blood Count 20.2 T/CUMM (4-12)
[2016-09-11] MEDS ORDERED: LEVOFLOXACIN INJ 150 ML IV ONE (13:42)
[2016-09-11] MEDS: TERBUTALINE 1 MG/1 ML VIAL SUBCUT SCH ×2 (13:46→14:33)
[2016-09-11 13:52] LABS: Lactic Acid 2.2 MMOL/L (0.4-2.0)
[2016-09-11 13:58] LABS: PT Patient Result 10.3 SECS; Partial Thromboplastin Time 25.3 SECS (0-40)
[2016-09-11 14:09] LABS: Albumin 4.1 G/DL (3.4-5.0); Bilirubin,Total 0.8 MG/DL (0.2-1.0); Magnesium 1.7 MG/DL (1.8-2.4); Osmolality,Calculated 294.4 MOS/KG (273-304); Potassium 3.2 MMOL/L (3.5-5.1); Total Protein 6.6 G/DL (6.4-8.3)
[2016-09-11 14:10] LABS: Troponin I Only 0.324 NG/ML (0.00-0.045)
[2016-09-11 14:21] LABS: Troponin I Only 0.363 NG/ML (0.00-0.045)
[2016-09-11] MEDS ORDERED: ALBUTEROL/IPRATROPIUM 3 ML NEB RESP TX PRN (14:22)
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
[2016-09-11] MEDS ORDERED: GLUCAGON 1 MG VIAL IM PRN ×2 (16:00→16:31)
[2016-09-11] MEDS ORDERED: DEXTROSE 50% 25 GM/50 ML VIAL IV PRN ×2 (16:00→16:31)
[2016-09-11] MEDS ORDERED: MAGNESIUM SULF RIDER 2 GM in PREMIX 1 EACH IV PRN (16:31)
[2016-09-11] MEDS ORDERED: MAGNESIUM SULF RIDER 4 GM in PREMIX 1 EACH IV PRN (16:31)
[2016-09-11] MEDS ORDERED: SODIUM CHLORIDE 0.9% 1,000 ML IV ONE (16:58)
[2016-09-11] MEDS ORDERED: SODIUM CHLORIDE 0.9% 500 ML IV ONE (17:00)
[2016-09-11] MEDS: PANTOPRAZOLE 40 MG VIAL IV SCH (17:18)
[2016-09-11] MEDS: SODIUM CHLORIDE 0.9% 1,000 ML IV SCH (17:21)
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
[2016-09-11 18:23] LABS: Band Neutrophils 2 % (0-10); Eosinophils 1 % (0-10); Lymphocytes 25 % (20-55); Segmented Neutrophils 63 % (50-85); Total Cells Counted 100
--- NOTE | 2016-09-11 18:41 | CT Report ---
Exam: CT chest w con Date: 09/11/2016 4:14 PM Comparison: 09/03/2014, chest x-ray 05/23/2017 Indication: Pneumonia with abnormal chest x-ray Technique:[Sequential axial scans of the chest were obtained following the injection of 80 cc Omnipaque 350. Coronal and sagittal 2-D reconstructions were obtained. Total DLP: 357.30] Findings: The heart is borderline in size with cardiac fat pads. Prior median sternotomy with coronary artery calcifications. Left subclavian atrioventricular AICD. No evidence of aortic dissection or pulmonary emboli. Stable lymph nodes in the axilla with fatty hilum. Calcified granulomata are noted in the lungs, liver, and spleen. Minimal pneumobilia with prior cholecystectomy. Small hiatal hernia. Degenerative changes are noted. Stable densities in the subareolar location bilaterally. There is small right pleural effusion with progressive diffuse parenchymal findings in the right middle lobe and right lower lobe. There are associated noncalcified groundglass opacities with ill-defined margins. This includes a 38 mm finding more superiorly in the right middle lobe. Impression: Status post median sternotomy with coronary artery calcifications and left subclavian atrioventricular AICD. Chronic scarring in the lungs with findings consistent with pneumonia in the right middle lobe and right lower lobe with very small pleural effusion. Indeterminate groundglass opacities within the lung consolidation. Continued follow-up chest x-ray is recommended to document clearing. Evidence old healed granulomatous disease. Small hiatal hernia. Prior cholecystectomy with minimal pneumobilia. This CT exam was performed using one or more the following dose reduction techniques: Automated exposure control, adjustment of the MA and/or KV according to patient size, or use of iterative reconstruction technique. PROCEDURE INTERPRETED AT [facility] DEPARTMENT OF RADIOLOGY Final Report Signed by: Dr. Elisa Tobar
[2016-09-11] MEDS: ALBUTEROL/IPRATROPIUM 3 ML NEB RESP TX SCH (19:20)
[2016-09-11] MEDS: THEOPHYLLINE ER 300 MG TABLET PO SCH (19:32)
--- NOTE | 2016-09-11 19:52 | EKG Report ---
Stationary ECG Study [facility] Test Date: 09/11/2016 7:46:47 PM Pat Name: KERON PATEL Department: Room: 287 Gender: M Shipyard Helper: : [id number] Requested by: Balaji Cheney Order Number: [id number] Reading MD: DELMI CHEN Intervals Basehor Rate: 78 P: 74 NM: 197 QRS: 77 QRSD: 110 T: -37 QT: 409 QTc: 442 Interpretive Statements SINUS RHYTHM CANNOT RULE OUT INFERIOR INFARCT, AGE Electronically Signed On 09-12-16 12:06:29 CDT by DELMI CHEN [email or web address]
[2016-09-11] MEDS: POTASSIUM CHLORIDE RIDER 10 MEQ in PREMIX 1 EACH IV SCH ×3 (21:37→23:47)
[2016-09-11] MEDS: BRIMONIDINE 0.1% OPH SOLN 5 ML BOTTLE BOTH EYES SCH (21:38)
[2016-09-11] MEDS: INSULIN LISPRO 100 UNIT/ML SUBCUT SCH (21:39)
[2016-09-12] MEDS ORDERED: ZOLPIDEM 5 MG TABLET PO PRN (00:07)
[2016-09-12] MEDS: ALBUTEROL/IPRATROPIUM 3 ML NEB RESP TX SCH ×4 (00:20→19:21)
[2016-09-12] MEDS: LEVOFLOXACIN INJ 750 MG in PREMIX 1 EACH IV SCH ×2 (03:45→17:25)
[2016-09-12] MEDS: POTASSIUM CHLORIDE RIDER 10 MEQ in PREMIX 1 EACH IV SCH (05:00)
[2016-09-12 06:07] LABS: Basophils # 0.1 10*3/uL (0.0-0.2); Basophils % 0.2 % (0.0-0.8); Hematocrit 37.7 VOL% (42.0-52.0); Hemoglobin 12.5 GM/DL (14.0-18.0); Immature Granulocytes % 1.1 %; Immature Granulocytes Absolute 0.35 #; Lymphocytes % 33.3 % (21.2-54.2); Mean Corpuscular HGB Conc 33.2 GM/DL (32-36); Mean Corpuscular Hemoglobin 30 PG (27-34); Mean Corpuscular Volume 90.6 FL (87-102); Mean Platelet Volume 11.9 FL (9.6-12.0); Monocytes # 1.6 10*3/uL (0.11-0.8); Monocytes % 4.9 % (1.7-12.7); Neutrophils % 60.5 % (38.7-73.9); Platelet Count 150 T/CUMM (130-400); Red Blood Count 4.16 MC/CUMM (3.8-5.5); Red Cell Distribution Width 13.8 % (9.3-17.3)
[2016-09-12 06:49] LABS: Albumin 3.3 G/DL (3.4-5.0); Bilirubin,Total 0.6 MG/DL (0.2-1.0); Calcium 8.6 MG/DL (8.5-10.1); Osmolality,Calculated 294.8 MOS/KG (273-304); Potassium 3.9 MMOL/L (3.5-5.1); Total Protein 5.6 G/DL (6.4-8.3)
[2016-09-12 07:03] LABS: Band Neutrophils 5 % (0-10); Lymphocytes 31 % (20-55); Segmented Neutrophils 60 % (50-85); Total Cells Counted 100
[2016-09-12 07:04] LABS: Atypical Lymphocytes Few; Hypochromasia 1+; Platelet Estimate Normal
[2016-09-12 07:05] LABS: Microcytosis Slight
--- NOTE | 2016-09-12 08:27 | XRay Report ---
Portable chest Date: 09/12/2016 Clinical history: Shortness of breath Comparison: 09/11/2016 Technique: Portable AP sitting chest Findings: The heart is minimally enlarged with prior median sternotomy. Stable left subclavian atrioventricular AICD. Reduced parenchymal findings in the right mid to lower lung zone. Stable mediastinum with degenerative changes. Prior cholecystectomy. Impression: Status post median sternotomy with chronic scarring and stable left subclavian atrioventricular AICD. Improved pneumonia in the right middle lobe and right lower lobe. Ill-defined densities persist and continued follow-up chest x-ray is recommended. PROCEDURE INTERPRETED AT [facility] DEPARTMENT OF RADIOLOGY Final Report Signed by: Dr. Elisa Tobar
--- NOTE | 2016-09-12 09:00 | Cardiology Progress Note ---
Assessment and Plan (1) Non-cardiac chest pain Status: Acute Assessment and plan: His chest pain is noncardiac and probably related to his pneumonia in the right lung. This though is better. Current Visit: Yes (2) Ischemic cardiomyopathy Status: Acute Assessment and plan: This is clinically stable. Certainly no symptoms of heart failure. Current Visit: Yes (3) COPD (chronic obstructive pulmonary disease) Status: Chronic Assessment and plan: This is chronic and slightly exacerbated secondary to his pneumonia. Clinically though this is improved with less wheezing. He certainly is breathing easier. Current Visit: Yes (4) Automatic implantable cardioverter-defibrillator in situ Status: Chronic Assessment and plan: This is chronic and has not given any therapies recently. Current Visit: Yes (5) Hypertension Status: Chronic Assessment and plan: Generally stable at this time. Current Visit: No Qualifiers: Hypertension type: essential hypertension Qualified Code(s): I10 - Essential (primary) hypertension (6) CAD (coronary artery disease) Status: Chronic Assessment and plan: He has had prior surgery i.e. CABG. He is stable though without anginal symptoms. Current Visit: No (7) Pneumonia Status: Acute Assessment and plan: This is his cause for admission and chest pain. This is being treated with antibiotics. His white count is higher today Current Visit: No Qualifiers: Pneumonia type: due to unspecified organism Laterality: unspecified laterality (8) Hypokalemia Status: Acute Assessment and plan: This is been replaced with a potassium 3.9 today. Current Visit: Yes Cardiology - PN: Subj Interval history: Patient generally doing well from cardiac standpoint since admission. He feels better. He is had minimal right-sided chest pain mostly with deep breath. He is having less cough. He's had no fever but his temperature is below lower side. His white count is elevated more this is probably related to his pneumonia. His rhythm remained stable in sinus. Chest x-ray report noted. This indicates possible some improvement. His vital signs remained stable including his blood pressure and heart rates. Generally from a cardiac standpoint he is doing well. Exam (Progress Note) - Constitutional Vitals: Period Temp Pulse Resp BP Sys/Umana Pulse Ox Last 24 Hr 96.9 F-98.3 F 72-107 17-26 77-125/42-74 90-100 Exam: General appearance: Obese, no acute distress. He is eating breakfast on my arrival. Head exam: normal inspection, atraumatic Neck exam: normal inspection no JVD. No carotid bruit. Trachea is in midline. Respiratory exam: Has diffuse coarse breath sounds with decreased rhonchi and wheezing since yesterday. Cardiovascular exam: regular rate and rhythm, no murmur or gallop or rub. Heart sounds are distant. No precordial lift. No bruits over the major arteries. Chest wall/torso: Anatomically normal. No tenderness, deformity Peripheral Pulses: 2+ throughout. GI/Abdominal exam: Obese, normal bowel sounds, soft and nontender, no abdominal bruits or pulsatile masses. Musculoskeletal/Extremities exam: normal inspection without edema or cyanosis. No deformities or trauma. Neurological exam: alert, oriented X3. There is no gross neurologic deficits. Psychiatric exam: normal affect, normal mood. Cognitive function is grossly intact. Skin exam: normal color, warm. No rashes or other skin lesions. Result/EKG - Labs CBC & BMP: 09/12/16 04:57 09/12/16 04:57 Lab Results: I have reviewed the past 24 hour labs (WBC is increased. Chemistries are unremarkable. His creatinine is up a little bit 1.4.) Labs: Laboratory Results - last 24 hr 09/11/16 09/11/16 09/11/16 16:24 21:00 Unknown WBC RBC Hgb Hct MCV MCH MCHC RDW Plt Count MPV Neut % (Auto) Lymph % (Auto) [place] % (Auto) Eos % (Auto) Baso % (Auto) Neut # (Auto) Lymph # (Auto) [place] # (Auto) Eos # (Auto) Baso # (Auto) Total Counted Immature Gran % Nucleated RBC % Immature Gran # Segmented Neutrophils Band Neutrophils Lymphocytes Monocytes Nucleated RBCs # Atypical Lymphocytes Platelet Estimate Hypochromasia Microcytosis Sodium Potassium Chloride Carbon Dioxide Anion Gap BUN Creatinine GFR Calculation BUN/Creatinine Ratio Glucose POC Glucose 219 H 257 H Hemoglobin A1c Calculated Osmolality Calcium Magnesium 1.7 L Total Bilirubin AST ALT Alkaline Phosphatase Total Protein Albumin Globulin Albumin/Globulin Ratio Theophylline 09/11/16 09/12/16 09/12/16 Unknown 04:57 04:57 WBC RBC Hgb Hct MCV MCH MCHC RDW Plt Count MPV Neut % (Auto) Lymph % (Auto) [place] % (Auto) Eos % (Auto) Baso % (Auto) Neut # (Auto) Lymph # (Auto) [place] # (Auto) Eos # (Auto) Baso # (Auto) Total Counted Immature Gran % Nucleated RBC % Immature Gran # Segmented Neutrophils Band Neutrophils Lymphocytes Monocytes Nucleated RBCs # Atypical Lymphocytes Platelet Estimate Hypochromasia Microcytosis Sodium 144 Potassium 3.9 Chloride 104 Carbon Dioxide 25 Anion Gap 18.9 H BUN 17 Creatinine 1.40 H GFR Calculation 53 BUN/Creatinine Ratio 12.00 Glucose 220 H POC Glucose Hemoglobin A1c Calculated Osmolality 294.8 Calcium 8.6 Magnesium 2.2 Total Bilirubin 0.60 AST 14 ALT 15 L Alkaline Phosphatase 107 Total Protein 5.6 L Albumin 3.3 L Globulin 2.3 Albumin/Globulin Ratio 1.4 Theophylline 13.8 09/12/16 09/12/16 04:57 04:57 WBC 33.0 H D RBC 4.16 Hgb 12.5 L D Hct 37.7 L MCV 90.6 MCH 30 MCHC 33.2 RDW 13.8 Plt Count 150 MPV 11.9 Neut % (Auto) 60.5 Lymph % (Auto) 33.3 [place] % (Auto) 4.9 Eos % (Auto) 0.0 Baso % (Auto) 0.2 Neut # (Auto) 20.0 H Lymph # (Auto) 11.0 H [place] # (Auto) 1.6 H Eos # (Auto) 0.0 Baso # (Auto) 0.1 Total Counted 100 Immature Gran % 1.1 Nucleated RBC % 0.0 Immature Gran # 0.35 Segmented Neutrophils 60 Band Neutrophils 5 Lymphocytes 31 Monocytes 4 Nucleated RBCs # 0.00 Atypical Lymphocytes Few Platelet Estimate Normal Hypochromasia 1+ Microcytosis Slight Sodium Potassium Chloride Carbon Dioxide Anion Gap BUN Creatinine GFR Calculation BUN/Creatinine Ratio Glucose POC Glucose Hemoglobin A1c 6.6 H Calculated Osmolality Calcium Magnesium Total Bilirubin AST ALT Alkaline Phosphatase Total Protein Albumin Globulin Albumin/Globulin Ratio Theophylline Quality Measures - VTE Deep Vein Thrombosis/Pulmonary Embolism Present on Admission: No
[2016-09-12] MEDS ORDERED: IBUPROFEN 200 MG TABLET PO PRN (10:05)
[2016-09-12] MEDS: INSULIN LISPRO 100 UNIT/ML SUBCUT SCH ×4 (11:37→21:03)
[2016-09-12] MEDS: DUTASTERIDE 0.5 MG CAPSULE PO SCH (11:46)
--- NOTE | 2016-09-12 11:46 | Hospitalist Progress Note ---
<Jacques Anderson - Last Filed: 09/12/16 11:44> Assessment and Plan (1) Pneumonia Status: Acute Assessment and plan: CXR improved; Will continue Levaquin and nebulizer treatments. Will resume all home medications as previously ordered. Current Visit: No Qualifiers: Pneumonia type: due to unspecified organism Laterality: unspecified laterality (2) Diabetes mellitus Status: Chronic Assessment and plan: Continue accuchecks with sliding scale coverage. Current Visit: No Qualifiers: Diabetes mellitus type: type 2 (3) Hypokalemia Status: Acute Assessment and plan: K+ 3.9 today. Will continue to monitor and treat as needed. Current Visit: Yes (4) Chest pain Status: Acute Assessment and plan: Cardiology was consulted due to his extensive past cardiac history; in which he was evaluated. They attribute his chest pain to pneumonia. His cardiac enzymes were negative. Cardiology to follow during clinical encounter. Current Visit: Yes Qualifiers: Chest pain type: unspecified Qualified Code(s): R07.9 - Chest pain, unspecified Hospitalist: Subjective Interval history: Patient seen and evaluated. Client reports "horrible night". States "I didn't have any of my home medications and I could not sleep". "I was miserable". No additional significant events otherwise. Exam - Constitutional Vitals: Period Temp Pulse Resp BP Sys/Umana Pulse Ox Last 24 Hr 96.9 F-98.3 F 72-107 17-26 77-125/42-74 90-100 General appearance: normal weight, no acute distress - Head Head exam: Present: normal inspection, normocephalic - Eye Eye exam: Present: EOMI. Absent: conjunctival injection, periorbital swelling, scleral icterus Pupils: Present: VISHAL, normal accommodation - ENT ENT exam: Present: normal exam - Neck Neck exam: Present: normal inspection. Absent: lymphadenopathy, meningismus, tenderness, thyromegaly - Respiratory Respiratory exam: Present: decreased breath sounds (Right side). Absent: rales , rhonchi, stridor - Cardiovascular Cardiovascular exam: Absent: diastolic murmur, gallop, irregular rhythm, rubs, systolic murmur, tachycardia - GI/Abdominal GI/Abdominal exam: Present: normal bowel sounds, soft. Absent: guarding, mass, tenderness - Extremities Exam Extremities exam: Present: normal inspection - Back Exam Back exam: Present: normal inspection - Neurological Exam Neurological exam: Present: alert, oriented X3, CN II-XII intact - Psychiatric Psychiatric exam: Present: normal affect - Skin Skin exam: Present: normal color, warm, dry Results - Labs CBC & BMP: 09/12/16 04:57 09/12/16 04:57 Lab Results: I have reviewed the past 24 hour labs - Diagnostic Findings Procedure: Chest x-ray: other (Improved pneumonia in right middle and right lower lobe) Quality Measures - VTE Deep Vein Thrombosis/Pulmonary Embolism Present on Admission: No <Balaji Cheney - Last Filed: 09/12/16 13:14> Hospitalist: Subjective Interval history: Patient seen and examined by me along with HENNA Anderson. Agree with history, exam and plan. No complaints for me today. Worsening leukocytosis. Possibly due to steroid dose yesterday.Will continue levaquin. Will start prednisone. Exam - Constitutional Vitals: Period Temp Pulse Resp BP Sys/Umana Pulse Ox Last 24 Hr 96.9 F-98.3 F 72-107 17-26 77-125/42-74 90-100 Results - Labs CBC & BMP: 09/12/16 04:57 09/12/16 04:57
[2016-09-12] MEDS: ASPIRIN EC 81 MG TABLET PO SCH (11:47)
[2016-09-12] MEDS: MULTIVITAMIN (CENTRUM) TABLET PO SCH (11:47)
[2016-09-12] MEDS: ALLOPURINOL 300 MG TABLET PO SCH (11:47)
[2016-09-12] MEDS: THEOPHYLLINE ER 300 MG TABLET PO SCH ×2 (11:48→17:26)
[2016-09-12] MEDS: PANTOPRAZOLE 40 MG TABLET PO SCH (11:48)
[2016-09-12] MEDS: TAMSULOSIN 0.4 MG CAPSULE PO SCH (11:50)
[2016-09-12] MEDS: traZODone 50 MG TABLET PO SCH (11:50)
[2016-09-12] MEDS: SIMVASTATIN 40 MG TABLET PO SCH (11:50)
[2016-09-12] MEDS: LISINOPRIL 5 MG TABLET PO SCH (11:50)
[2016-09-12] MEDS: GLIMEPIRIDE 4 MG TABLET PO SCH (11:51)
[2016-09-12] MEDS: FLUTICASONE 50 MCG NASAL SPRAY 16 GM BOTTLE BOTH NARES SCH (11:52)
[2016-09-12] MEDS: FUROSEMIDE 40 MG TABLET PO SCH (11:52)
[2016-09-12] MEDS: PANTOPRAZOLE 40 MG VIAL IV SCH (11:53)
[2016-09-12] MEDS: BRIMONIDINE 0.1% OPH SOLN 5 ML BOTTLE BOTH EYES SCH ×3 (11:53→21:02)
--- NOTE | 2016-09-12 12:04 | EKG Report ---
Stationary ECG Study [facility] ER Test Date: 09/11/2016 12:57:46 PM Pat Name: KERON PATEL Department: Room: 287 Gender: M Code Clerk: : 1940 Requested by: Josh Guerra Order Number: [id number] Reading MD: DELMI CHEN Intervals [place] Rate: 114 P: 40 MD: 165 QRS: 73 QRSD: 105 T: -63 QT: 332 QTc: 400 Interpretive Statements SINUS TACHYCARDIA PROBABLE INFERIOR MYOCARDIAL INFARCTION, OF INDETERMINATE AGE Electronically Signed On 09-12-16 12:03:45 CDT by DELMI CHEN [email or web address]
[2016-09-12] MEDS: predniSONE 20 MG TABLET PO SCH (14:53)
[2016-09-12] MEDS: GABAPENTIN 300 MG CAPSULE PO SCH ×2 (17:25→21:01)
[2016-09-12] MEDS: CARVEDILOL 12.5 MG TABLET PO SCH (17:26)
[2016-09-12] MEDS: metFORMIN 500 MG TABLET PO SCH (17:28)
[2016-09-12] MEDS: TEMAZEPAM 15 MG CAPSULE PO PRN (21:01)
[2016-09-13] MEDS: SODIUM CHLORIDE 0.9% 1,000 ML IV SCH ×3 (00:09→22:11)
[2016-09-13] MEDS: ALBUTEROL/IPRATROPIUM 3 ML NEB RESP TX SCH ×4 (01:27→19:55)
[2016-09-13 07:13] LABS: Basophils # 0.1 10*3/uL (0.0-0.2); Basophils % 0.2 % (0.0-0.8); Immature Granulocytes % 1.4 %; Immature Granulocytes Absolute 0.52 #; Lymphocytes # 15.9 10*3/uL (1.4-4.0); Lymphocytes % 42.5 % (21.2-54.2); Mean Corpuscular HGB Conc 32.5 GM/DL (32-36); Mean Corpuscular Hemoglobin 30 PG (27-34); Mean Corpuscular Volume 93.5 FL (87-102); Mean Platelet Volume 11.7 FL (9.6-12.0); Monocytes # 1.3 10*3/uL (0.11-0.8); Monocytes % 3.6 % (1.7-12.7); NRBC # 0.02 10*3/uL; Neutrophils # 19.5 10*3/uL (1.4-7.4); Neutrophils % 52.3 % (38.7-73.9); Platelet Count 152 T/CUMM (130-400); Red Blood Count 4.28 MC/CUMM (3.8-5.5); Red Cell Distribution Width 14.1 % (9.3-17.3); White Blood Count 37.3 T/CUMM (4-12)
[2016-09-13 07:34] LABS: Magnesium 2.4 MG/DL (1.8-2.4); Osmolality,Calculated 296.4 MOS/KG (273-304); Potassium 4.6 MMOL/L (3.5-5.1)
[2016-09-13] MEDS: INSULIN LISPRO 100 UNIT/ML SUBCUT SCH ×4 (08:05→21:20)
[2016-09-13 08:13] LABS: Band Neutrophils 5 % (0-10); Hypochromasia 1+; Lymphocytes 32 % (20-55); Metamyelocytes 1 %; Platelet Estimate Adequate; Segmented Neutrophils 60 % (50-85); Total Cells Counted 100
[2016-09-13] MEDS: GLIMEPIRIDE 4 MG TABLET PO SCH (09:57)
[2016-09-13] MEDS: ALLOPURINOL 300 MG TABLET PO SCH (09:57)
[2016-09-13] MEDS: MULTIVITAMIN (CENTRUM) TABLET PO SCH (09:57)
[2016-09-13] MEDS: traZODone 50 MG TABLET PO SCH (09:57)
[2016-09-13] MEDS: THEOPHYLLINE ER 300 MG TABLET PO SCH ×2 (09:57→17:36)
[2016-09-13] MEDS: predniSONE 20 MG TABLET PO SCH (09:57)
[2016-09-13] MEDS: GABAPENTIN 300 MG CAPSULE PO SCH ×3 (09:57→21:19)
[2016-09-13] MEDS: PANTOPRAZOLE 40 MG TABLET PO SCH (09:58)
[2016-09-13] MEDS: FLUTICASONE 50 MCG NASAL SPRAY 16 GM BOTTLE BOTH NARES SCH ×3 (09:58→21:19)
[2016-09-13] MEDS: SIMVASTATIN 40 MG TABLET PO SCH (09:58)
[2016-09-13] MEDS: DUTASTERIDE 0.5 MG CAPSULE PO SCH (09:58)
[2016-09-13] MEDS: FUROSEMIDE 40 MG TABLET PO SCH (09:58)
[2016-09-13] MEDS: LISINOPRIL 5 MG TABLET PO SCH (09:58)
[2016-09-13] MEDS: TAMSULOSIN 0.4 MG CAPSULE PO SCH (09:58)
[2016-09-13] MEDS: ASPIRIN EC 81 MG TABLET PO SCH (09:58)
[2016-09-13] MEDS: metFORMIN 500 MG TABLET PO SCH ×2 (09:58→17:27)
[2016-09-13] MEDS: CARVEDILOL 12.5 MG TABLET PO SCH ×2 (09:58→17:27)
[2016-09-13] MEDS: BRIMONIDINE 0.1% OPH SOLN 5 ML BOTTLE BOTH EYES SCH ×3 (09:59→21:20)
--- NOTE | 2016-09-13 13:28 | Cardiology Progress Note ---
Pernell Dozier Vanessa, RN, am scribing for, and in the presence of, Lul Correia MD 13:27. Assessment and Plan - Time spent with patient Time spent with patient: Less than 30 minutes (1) Pneumonia Status: Acute Assessment and plan: Most likely source of chest wall pain. IV antibiotics. Defer management to hospitalist service. Current Visit: No Qualifiers: Pneumonia type: due to unspecified organism Laterality: unspecified laterality (2) Hypokalemia Status: Resolved Assessment and plan: Resolved. Today, potassium is 4.2. Current Visit: Yes (3) Ischemic cardiomyopathy Status: Acute Assessment and plan: Clinically he is well compensated right now. Current Visit: Yes (4) Non-cardiac chest pain Status: Acute Current Visit: Yes (5) Automatic implantable cardioverter-defibrillator in situ Status: Chronic Assessment and plan: This appears to be functioning normally. Current Visit: Yes (6) COPD (chronic obstructive pulmonary disease) Status: Chronic Assessment and plan: Minimal wheezing. Continue current plan of care. Current Visit: Yes (7) CAD (coronary artery disease) Status: Chronic Assessment and plan: History of CABG. No clinical findings for ACS or overt anginal complaint at this time. Current Visit: No (8) Diabetes mellitus Status: Chronic Assessment and plan: Metformin and SSI. Defer management to hospitalist service. Current Visit: No Qualifiers: Diabetes mellitus type: type 2 (9) Hypertension Status: Chronic Assessment and plan: Overall fairly well controlled at this time. Continue current regimen. Current Visit: No Qualifiers: Hypertension type: essential hypertension Qualified Code(s): I10 - Essential (primary) hypertension Cardiology - PN: Subj Interval history: Patient is seen and examined on the telemetry. He is awake and alert with no acute distress noted. Denies chest pain. Some epigastric discomfort after "too much coughing." Reports shortness of breath is improving. Slight expirational wheeze noted. Vitals stable overnight. WBC elevation at 37,300. Electrolytes within normal limits. Sinus rhythm per tele monitor with heart rate 70's without ectopy or disturbance. Current Medications Albuterol/Ipratropium (Duoneb) 3 ml RESP TX RT Q6H PRN PRN Reason: Shortness of Breath/Wheezing Albuterol/Ipratropium (Duoneb) 3 ml RESP TX RT Q6H HELENE Last Admin: 09/13/16 07:53 Dose: 3 ml Allopurinol (Zyloprim) 300 mg PO DAILY [facility] Last Admin: 09/13/16 09:57 Dose: 300 mg Aspirin () 81 mg PO DAILY [facility] Last Admin: 09/13/16 09:58 Dose: 81 mg Brimonidine Tartrate (Alphagan P 0.1%) 1 drop BOTH EYES TID [facility] Last Admin: 09/13/16 09:59 Dose: 1 drop Carvedilol (Coreg) 12.5 mg PO BID W/MEALS [facility] Last Admin: 09/13/16 09:58 Dose: 12.5 mg Dextrose/Water (D50) 25 gm IV PRN PRN PRN Reason: Hypoglycemia with IV access Dutasteride (Avodart) 0.5 mg PO DAILY [facility] Last Admin: 09/13/16 09:58 Dose: 0.5 mg Fluticasone Propionate (Flonase) 1 spray BOTH NARES DAILY [facility] Last Admin: 09/13/16 10:40 Dose: Not Given Furosemide (Lasix Tab) 40 mg PO DAILY [facility] Last Admin: 09/13/16 09:58 Dose: 40 mg Gabapentin (Neurontin Cap/Tab) 300 mg PO TID [facility] Last Admin: 09/13/16 09:57 Dose: 300 mg Glimepiride (Amaryl) 4 mg PO DAILY [facility] Last Admin: 09/13/16 09:57 Dose: 4 mg Glucagon () 1 mg IM PRN PRN PRN Reason: Hypoglycemia w/o IV access Levofloxacin/Dextrose 750 mg/ (Premix) 150 mls @ 100 mls/hr IV Q24H [facility] Last Infusion: 09/12/16 21:05 Dose: Infused Magnesium Sulfate 2 gm/ Premix 50 mls @ 25 mls/hr IV .PER PROTOCOL PRN; Protocol PRN Reason: Per Protocol Last Admin: 09/11/16 17:16 Dose: 25 mls/hr Magnesium Sulfate 4 gm/ Premix 100 mls @ 25 mls/hr IV .PER PROTOCOL PRN; Protocol PRN Reason: Per Protocol Sodium Chloride (Ns) 1,000 mls @ 80 mls/hr IV .[id number] [facility] Last Admin: 09/13/16 00:09 Dose: Not Given Ibuprofen (Motrin Tab) 200 mg PO Q6H PRN PRN Reason: Fever, Headache, Mild Pain Last Admin: 09/12/16 12:07 Dose: 200 mg Insulin Human Lispro (Humalog) 0 unit SUBCUT ACHS [facility] PRN Reason: Protocol Last Admin: 09/13/16 12:22 Dose: 3 unit Iron/Multivitamins/Folic Acid (Centrum Tab) 1 tablet PO DAILY [facility] Last Admin: 09/13/16 09:57 Dose: 1 tablet Lisinopril (Prinivil) 5 mg PO DAILY [facility] Last Admin: 09/13/16 09:58 Dose: 5 mg Metformin HCl (Glucophage) 500 mg PO BID W/MEALS [facility] Last Admin: 09/13/16 09:58 Dose: 500 mg Pantoprazole Sodium (Protonix Tab) 40 mg PO DAILY [facility] Last Admin: 09/13/16 09:58 Dose: 40 mg Prednisone () 60 mg PO DAILY [facility] Last Admin: 09/13/16 09:57 Dose: 60 mg Simvastatin (Zocor) 40 mg PO DAILY [facility] Last Admin: 09/13/16 09:58 Dose: 40 mg Tamsulosin HCl (Flomax) 0.4 mg PO DAILY [facility] Last Admin: 09/13/16 09:58 Dose: 0.4 mg Temazepam (Restoril) 30 mg PO BEDTIME PRN PRN Reason: Insomnia Last Admin: 09/12/16 21:01 Dose: 30 mg Theophylline () 300 mg PO BID W/MEALS [facility] Last Admin: 09/13/16 09:57 Dose: 300 mg Trazodone HCl (Desyrel) 100 mg PO DAILY [facility] Last Admin: 09/13/16 09:57 Dose: 100 mg Zolpidem Tartrate (Ambien) 5 mg PO BEDTIME PRN PRN Reason: Sleep Last Admin: 09/12/16 00:18 Dose: 5 mg Exam (Progress Note) - Constitutional Vitals: Period Temp Pulse Resp BP Sys/Umana Pulse Ox Last 24 Hr 96.1 F-98 F 66-94 16-20 98-143/44-69 90-99 General appearance: no acute distress, other (obese) - Head Head exam: Absent: abrasion, hematoma - Eye Eye exam: Present: EOMI Pupils: Present: VISHAL - Neck Neck exam: Absent: tenderness - Respiratory Respiratory exam: Present: rhonchi (scant bibasilar), wheezes (slight expirational wheeze throughout.). Absent: accessory muscle use, rales, stridor - Cardiovascular Cardiovascular exam: Present: regular rate and rhythm. Absent: bradycardia, carotid bruit, diastolic murmur, irregular rhythm, JVD, systolic murmur, tachycardia - GI/Abdominal GI/Abdominal exam: Present: soft. Absent: ascites, distended, firm, mass, tenderness - Extremities Exam Extremities exam: Present: normal inspection. Absent: full ROM, calf tenderness , edema - Back Exam Back exam: Present: normal inspection - Neurological Exam Neurological exam: Present: alert, oriented X3 - Psychiatric Psychiatric exam: Present: normal affect, normal mood - Skin Skin exam: Present: normal color, warm, dry. Absent: cyanosis, diaphoretic Result/EKG - Labs CBC & BMP: 09/13/16 06:10 09/13/16 06:10 Lab Results: I have reviewed the past 24 hour labs Labs: Laboratory Results - last 24 hr 09/12/16 09/12/16 09/12/16 08:55 11:53 16:21 WBC RBC Hgb Hct MCV MCH MCHC RDW Plt Count MPV Neut % (Auto) Lymph % (Auto) [place] % (Auto) Eos % (Auto) Baso % (Auto) Neut # (Auto) Lymph # (Auto) [place] # (Auto) Eos # (Auto) Baso # (Auto) Total Counted Immature Gran % Nucleated RBC % Immature Gran # Segmented Neutrophils Band Neutrophils Lymphocytes Monocytes Metamyelocytes Nucleated RBCs # Platelet Estimate Hypochromasia Sodium Potassium Chloride Carbon Dioxide Anion Gap BUN Creatinine GFR Calculation BUN/Creatinine Ratio Glucose POC Glucose 152 H 158 H 184 H Calculated Osmolality Calcium Magnesium 09/12/16 09/13/16 09/13/16 20:04 06:10 06:10 WBC 37.3 H RBC 4.28 Hgb 13.0 L Hct 40.0 L MCV 93.5 MCH 30 MCHC 32.5 RDW 14.1 Plt Count 152 MPV 11.7 Neut % (Auto) 52.3 Lymph % (Auto) 42.5 [place] % (Auto) 3.6 Eos % (Auto) 0.0 Baso % (Auto) 0.2 Neut # (Auto) 19.5 H Lymph # (Auto) 15.9 H [place] # (Auto) 1.3 H Eos # (Auto) 0.0 Baso # (Auto) 0.1 Total Counted 100 Immature Gran % 1.4 Nucleated RBC % 0.1 Immature Gran # 0.52 Segmented Neutrophils 60 Band Neutrophils 5 Lymphocytes 32 Monocytes 2 Metamyelocytes 1 Nucleated RBCs # 0.02 Platelet Estimate Adequate Hypochromasia 1+ Sodium 147 H Potassium 4.6 Chloride 108 H Carbon Dioxide 28 Anion Gap 15.6 H BUN 21 H Creatinine 1.10 GFR Calculation 71 BUN/Creatinine Ratio 19.00 Glucose 131 H POC Glucose 162 H Calculated Osmolality 296.4 Calcium 9.0 Magnesium 2.4 09/13/16 09/13/16 07:52 11:44 WBC RBC Hgb Hct MCV MCH MCHC RDW Plt Count MPV Neut % (Auto) Lymph % (Auto) [place] % (Auto) Eos % (Auto) Baso % (Auto) Neut # (Auto) Lymph # (Auto) [place] # (Auto) Eos # (Auto) Baso # (Auto) Total Counted Immature Gran % Nucleated RBC % Immature Gran # Segmented Neutrophils Band Neutrophils Lymphocytes Monocytes Metamyelocytes Nucleated RBCs # Platelet Estimate Hypochromasia Sodium Potassium Chloride Carbon Dioxide Anion Gap BUN Creatinine GFR Calculation BUN/Creatinine Ratio Glucose POC Glucose 112 H 158 H Calculated Osmolality Calcium Magnesium - Diagnostic Findings Procedure: Chest x-ray: image reviewed by me, report reviewed by me, CT - chest : image reviewed by me, report reviewed by me - EKG EKG results: interpreted by me, no acute changes EKG shows: sinus rhythm Quality Measures - VTE Deep Vein Thrombosis/Pulmonary Embolism Present on Admission: No I, Lul Correia MD, personally performed the services described in this documentation, ascribed by Jackie Gimenez RN in my presence, and it is both accurate and complete 328 .
--- NOTE | 2016-09-13 15:25 | Physician Query Form ---
CLICK EDIT DOCUMENT TO SELECT QUERY ANSWER --> OK --> SIGN Gudelia Sheffield RN Clinical Manager Payment W) [phone] (f) [phone] [email or web address] PROVIDERS: Make your selection(s) from the choices in EACH section by typing an "x" and enter comments in the comment section. Please use your independent medical judgment in providing your response. This request does not imply that any particular answer is desired or expected. CLINICAL INDICATORS: (Providers should not edit this section) Based on documentation of serum creatinine of 1.4 to 1.10. GFR 53 to 71. NS Bolus given followed by NS infusion. Clarify which of the following most accurately represents the patient's renal status: (x) Acute kidney injury (non-traumatic) ( ) Acute renal failure ( ) Acute renal failure with underlying Chronic Kidney Disease (CKD) - please provide stage below ( ) Acute renal failure with pathological renal lesion ( ) Acute renal failure with necrosis ( ) tubular ( ) medullary ( ) cortical ( ) CKD - please provide stage below ( ) End Stage Renal Disease ( ) Acute interstitial nephritis ( ) Hepatorenal syndrome ( ) Other, please specify: ( ) Clinically unable to determine Chronic Kidney Disease Stages Source: National Kid[employer] Disease Foundation ( ) Stage I (eGFR > or = 90) ( ) Stage II (eGFR 60 - 89) ( ) Stage III (eGFR 30 - 59) ( ) Stage IV (eGFR 15 - 29) ( ) Stage V (eGFR < 15 or dialysis) COMMENTS: Use of terms such as suspected, likely, or probable (associated with a specific diagnosis that is being evaluated, monitored, or treated as if it exists) are acceptable and can be restated in the discharge summary if not ruled out. MTDD
[2016-09-13] MEDS: LEVOFLOXACIN INJ 750 MG in PREMIX 1 EACH IV SCH (15:40)
--- NOTE | 2016-09-13 15:42 | Hospitalist Progress Note ---
Assessment and Plan (1) Hypertension Status: Chronic Current Visit: No Qualifiers: Hypertension type: essential hypertension Qualified Code(s): I10 - Essential (primary) hypertension (2) Diabetes mellitus Status: Chronic Current Visit: No Qualifiers: Diabetes mellitus type: type 2 (3) CAD (coronary artery disease) Status: Chronic Current Visit: No (4) Pneumonia Status: Acute Assessment and plan: Continue levaquin Current Visit: No Qualifiers: Pneumonia type: due to unspecified organism Laterality: unspecified laterality Hospitalist: Subjective Interval history: Patient reports feeling better today. No acute events overnight. Worsening leukocytosis, possibly due to steroid use. Clinically is doing better. Exam - Constitutional Vitals: Period Temp Pulse Resp BP Sys/Umana Pulse Ox Last 24 Hr 96.1 F-98 F 62-88 16-20 98-143/44-69 90-99 General appearance: over weight - Head Head exam: Present: normocephalic, atraumatic - Eye Eye exam: Present: EOMI Pupils: Present: VISHAL - ENT ENT exam: Present: normal exam - Neck Neck exam: Present: normal inspection - Respiratory Respiratory exam: Present: decreased breath sounds, wheezes - Cardiovascular Cardiovascular exam: Present: regular rate and rhythm - GI/Abdominal GI/Abdominal exam: Present: normal bowel sounds, soft - Extremities Exam Extremities exam: Present: normal inspection - Back Exam Back exam: Present: normal inspection - Neurological Exam Neurological exam: Present: alert - Skin Skin exam: Present: warm, intact Results - Labs CBC & BMP: 09/13/16 06:10 09/13/16 06:10 Quality Measures - VTE Deep Vein Thrombosis/Pulmonary Embolism Present on Admission: No
[2016-09-14] MEDS: ALBUTEROL/IPRATROPIUM 3 ML NEB RESP TX SCH ×4 (02:37→20:14)
[2016-09-14 06:29] LABS: Basophils % 0.1 % (0.0-0.8); Hemoglobin 13.6 GM/DL (14.0-18.0); Immature Granulocytes % 1.3 %; Immature Granulocytes Absolute 0.63 #; Lymphocytes # 26.7 10*3/uL (1.4-4.0); Lymphocytes % 54.1 % (21.2-54.2); Mean Corpuscular HGB Conc 31.6 GM/DL (32-36); Mean Corpuscular Hemoglobin 30 PG (27-34); Mean Corpuscular Volume 93.7 FL (87-102); Mean Platelet Volume 10.8 FL (9.6-12.0); Monocytes # 1.7 10*3/uL (0.11-0.8); Monocytes % 3.3 % (1.7-12.7); NRBC # 0.02 10*3/uL; Neutrophils # 20.3 10*3/uL (1.4-7.4); Neutrophils % 41.2 % (38.7-73.9); Red Blood Count 4.59 MC/CUMM (3.8-5.5); Red Cell Distribution Width 14.1 % (9.3-17.3)
[2016-09-14 06:39] LABS: Platelet Count 187 T/CUMM (130-400); White Blood Count 49.3 T/CUMM (4-12)
[2016-09-14 07:00] LABS: Hypochromasia 1+; Lymphocytes 53 % (20-55); Platelet Estimate Adequate; Segmented Neutrophils 43 % (50-85); Total Cells Counted 100
[2016-09-14 07:11] LABS: Calcium 9.5 MG/DL (8.5-10.1); Magnesium 2.4 MG/DL (1.8-2.4); Osmolality,Calculated 290.6 MOS/KG (273-304); Potassium 4.1 MMOL/L (3.5-5.1)
[2016-09-14] MEDS: INSULIN LISPRO 100 UNIT/ML SUBCUT SCH ×4 (08:38→21:19)
[2016-09-14] MEDS: SODIUM CHLORIDE 0.9% 1,000 ML IV SCH ×2 (08:38→21:17)
[2016-09-14] MEDS: metFORMIN 500 MG TABLET PO SCH (08:39)
[2016-09-14] MEDS: PANTOPRAZOLE 40 MG TABLET PO SCH (09:37)
[2016-09-14] MEDS: THEOPHYLLINE ER 300 MG TABLET PO SCH ×2 (09:37→17:16)
[2016-09-14] MEDS: MULTIVITAMIN (CENTRUM) TABLET PO SCH (09:37)
[2016-09-14] MEDS: GABAPENTIN 300 MG CAPSULE PO SCH ×3 (09:37→21:17)
[2016-09-14] MEDS: ASPIRIN EC 81 MG TABLET PO SCH (09:38)
[2016-09-14] MEDS: SIMVASTATIN 40 MG TABLET PO SCH (09:38)
[2016-09-14] MEDS: CARVEDILOL 12.5 MG TABLET PO SCH ×2 (09:38→17:16)
[2016-09-14] MEDS: predniSONE 20 MG TABLET PO SCH (09:39)
[2016-09-14] MEDS: DUTASTERIDE 0.5 MG CAPSULE PO SCH (09:39)
[2016-09-14] MEDS: traZODone 50 MG TABLET PO SCH (09:39)
[2016-09-14] MEDS: FUROSEMIDE 40 MG TABLET PO SCH (09:39)
[2016-09-14] MEDS: LISINOPRIL 5 MG TABLET PO SCH (09:39)
[2016-09-14] MEDS: GLIMEPIRIDE 4 MG TABLET PO SCH (09:40)
[2016-09-14] MEDS: BRIMONIDINE 0.1% OPH SOLN 5 ML BOTTLE BOTH EYES SCH ×3 (09:41→21:18)
[2016-09-14] MEDS: TAMSULOSIN 0.4 MG CAPSULE PO SCH (09:44)
[2016-09-14] MEDS: ALLOPURINOL 300 MG TABLET PO SCH (09:45)
[2016-09-14] MEDS: MAGNESIUM HYDROXIDE SUSP 30 ML UDCUP PO PRN (09:51)
--- NOTE | 2016-09-14 14:34 | Hospitalist Progress Note ---
Assessment and Plan (1) Hypertension Status: Chronic Current Visit: No Qualifiers: Hypertension type: essential hypertension Qualified Code(s): I10 - Essential (primary) hypertension (2) Diabetes mellitus Status: Chronic Assessment and plan: Hypoglycemic today. Hold his metformin and glimepiride Current Visit: No Qualifiers: Diabetes mellitus type: type 2 (3) CAD (coronary artery disease) Status: Chronic Current Visit: No (4) Pneumonia Status: Acute Assessment and plan: Continue levaquin Current Visit: No Qualifiers: Pneumonia type: due to unspecified organism Laterality: unspecified laterality Hospitalist: Subjective Interval history: No acute events overnight. No complaints today. Feels better. White blood cell count continues to climb. Patient continues to improve clinically. Possibly due to steroids. Will decrease steroids. Continue to watch closely. Exam - Constitutional Vitals: Period Temp Pulse Resp BP Sys/Umana Pulse Ox Last 24 Hr 97 F-98 F 54-77 16-20 92-154/53-70 88-99 General appearance: over weight - Head Head exam: Present: normocephalic, atraumatic - Eye Eye exam: Present: EOMI Pupils: Present: VISHAL - ENT ENT exam: Present: normal exam - Neck Neck exam: Present: normal inspection. Absent: tenderness - Respiratory Respiratory exam: Present: decreased breath sounds - Cardiovascular Cardiovascular exam: Present: regular rate and rhythm - GI/Abdominal GI/Abdominal exam: Present: normal bowel sounds, soft. Absent: ascites, tenderness - Extremities Exam Extremities exam: Present: normal inspection - Back Exam Back exam: Present: normal inspection - Neurological Exam Neurological exam: Present: alert, oriented X3 - Psychiatric Psychiatric exam: Present: normal affect, normal mood - Skin Skin exam: Present: warm, intact Results - Labs CBC & BMP: 09/14/16 06:21 09/14/16 06:21 Quality Measures - VTE Deep Vein Thrombosis/Pulmonary Embolism Present on Admission: No
[2016-09-14] MEDS: LEVOFLOXACIN INJ 750 MG in PREMIX 1 EACH IV SCH (15:34)
--- NOTE | 2016-09-14 17:08 | Cardiology Progress Note ---
Pernell Dozier Vanessa, RN, am scribing for, and in the presence of, Lul Correia MD 17:07. Assessment and Plan - Time spent with patient Time spent with patient: Less than 30 minutes (1) Pneumonia Status: Acute Assessment and plan: Most likely source of chest wall pain. IV antibiotics. Defer management to hospitalist service. Current Visit: No Qualifiers: Pneumonia type: due to unspecified organism Laterality: unspecified laterality (2) Ischemic cardiomyopathy Status: Acute Assessment and plan: Clinically, he continues to be well compensated at this time. Current Visit: Yes (3) Non-cardiac chest pain Status: Acute Assessment and plan: Resolved. Current Visit: Yes (4) Automatic implantable cardioverter-defibrillator in situ Status: Chronic Assessment and plan: Device appears to be functioning normally. Current Visit: Yes (5) COPD (chronic obstructive pulmonary disease) Status: Chronic Assessment and plan: Continues to have minimal wheezing. Continue current plan of care. Current Visit: Yes (6) CAD (coronary artery disease) Status: Chronic Assessment and plan: History of CABG. No clinical findings for ACS or overt anginal complaint at this time. Current Visit: No (7) Diabetes mellitus Status: Chronic Assessment and plan: Metformin and SSI. Defer management to hospitalist service. Current Visit: No Qualifiers: Diabetes mellitus type: type 2 (8) Hypertension Status: Chronic Assessment and plan: Overall this is well controlled at this time. Continue current regimen. Current Visit: No Qualifiers: Hypertension type: essential hypertension Qualified Code(s): I10 - Essential (primary) hypertension (9) Leukocytosis Status: Acute Assessment and plan: Sensation is clinically improving I suspect this is related to his steroids. Current Visit: Yes Cardiology - PN: Subj Interval history: Patient remains housed on telemetry today. He is awake, alert, sitting up in bedside chair eating lunch without difficulty or distress noted. Denies chest pain, shortness of breath overnight or today. Reports since increasing his activity and being out of bed more today, productive cough with brown sputum production. His symptoms are now improved. Afebrile, vitals stable. Sinus rhythm per telemetry monitoring with occasional PVCs and pulse rate in the 70s. H&H is stable today. Potassium is 4.1 and magnesium is 2.4. White blood cell count was elevated on admission at 20.2, and it has continued to trend up daily. This morning's lab work reveals white cell count of 49.3. Current Medications Albuterol/Ipratropium (Duoneb) 3 ml RESP TX RT Q6H PRN PRN Reason: Shortness of Breath/Wheezing Albuterol/Ipratropium (Duoneb) 3 ml RESP TX RT Q6H [facility] Last Admin: 09/14/16 07:59 Dose: 3 ml Allopurinol (Zyloprim) 300 mg PO DAILY [facility] Last Admin: 09/14/16 09:45 Dose: 300 mg Aspirin () 81 mg PO DAILY [facility] Last Admin: 09/14/16 09:38 Dose: 81 mg Brimonidine Tartrate (Alphagan P 0.1%) 1 drop BOTH EYES TID [facility] Last Admin: 09/14/16 09:41 Dose: 1 drop Carvedilol (Coreg) 12.5 mg PO BID W/MEALS [facility] Last Admin: 09/14/16 09:38 Dose: 12.5 mg Dextrose/Water (D50) 25 gm IV PRN PRN PRN Reason: Hypoglycemia with IV access Dutasteride (Avodart) 0.5 mg PO DAILY [facility] Last Admin: 09/14/16 09:39 Dose: 0.5 mg Fluticasone Propionate (Flonase) 1 spray BOTH NARES BEDTIME [facility] Last Admin: 09/13/16 21:19 Dose: 1 spray Furosemide (Lasix Tab) 40 mg PO DAILY [facility] Last Admin: 09/14/16 09:39 Dose: 40 mg Gabapentin (Neurontin Cap/Tab) 300 mg PO TID [facility] Last Admin: 09/14/16 09:37 Dose: 300 mg Glimepiride (Amaryl) 4 mg PO DAILY [facility] Last Admin: 09/14/16 09:40 Dose: Not Given Glucagon () 1 mg IM PRN PRN PRN Reason: Hypoglycemia w/o IV access Levofloxacin/Dextrose 750 mg/ (Premix) 150 mls @ 100 mls/hr IV Q24H [facility] Last Infusion: 09/13/16 17:31 Dose: Infused Magnesium Sulfate 2 gm/ Premix 50 mls @ 25 mls/hr IV .PER PROTOCOL PRN; Protocol PRN Reason: Per Protocol Last Admin: 09/11/16 17:16 Dose: 25 mls/hr Magnesium Sulfate 4 gm/ Premix 100 mls @ 25 mls/hr IV .PER PROTOCOL PRN; Protocol PRN Reason: Per Protocol Sodium Chloride (Ns) 1,000 mls @ 80 mls/hr IV .[id number] [facility] Last Admin: 09/14/16 08:38 Dose: Not Given Ibuprofen (Motrin Tab) 200 mg PO Q6H PRN PRN Reason: Fever, Headache, Mild Pain Last Admin: 09/12/16 12:07 Dose: 200 mg Insulin Human Lispro (Humalog) 0 unit SUBCUT ACHS [facility] PRN Reason: Protocol Last Admin: 09/14/16 08:38 Dose: Not Given Iron/Multivitamins/Folic Acid (Centrum Tab) 1 tablet PO DAILY [facility] Last Admin: 09/14/16 09:37 Dose: 1 tablet Lisinopril (Prinivil) 5 mg PO DAILY [facility] Last Admin: 09/14/16 09:39 Dose: 5 mg Magnesium Hydroxide (Milk Of Magnesia) 30 ml PO BID PRN PRN Reason: Constipation Last Admin: 09/14/16 09:51 Dose: 30 ml Metformin HCl (Glucophage) 500 mg PO BID W/MEALS [facility] Last Admin: 09/14/16 08:39 Dose: Not Given Pantoprazole Sodium (Protonix Tab) 40 mg PO DAILY [facility] Last Admin: 09/14/16 09:37 Dose: 40 mg Prednisone () 40 mg PO DAILY [facility] Simvastatin (Zocor) 40 mg PO DAILY [facility] Last Admin: 09/14/16 09:38 Dose: 40 mg Tamsulosin HCl (Flomax) 0.4 mg PO DAILY [facility] Last Admin: 09/14/16 09:44 Dose: 0.4 mg Temazepam (Restoril) 30 mg PO BEDTIME PRN PRN Reason: Insomnia Last Admin: 09/12/16 21:01 Dose: 30 mg Theophylline () 300 mg PO BID W/MEALS [facility] Last Admin: 09/14/16 09:37 Dose: 300 mg Trazodone HCl (Desyrel) 100 mg PO DAILY [facility] Last Admin: 09/14/16 09:39 Dose: 100 mg Zolpidem Tartrate (Ambien) 5 mg PO BEDTIME PRN PRN Reason: Sleep Last Admin: 09/12/16 00:18 Dose: 5 mg Exam (Progress Note) - Constitutional Vitals: Period Temp Pulse Resp BP Sys/Umana Pulse Ox Last 24 Hr 97 F-98 F 62-77 16-20 99-154/50-70 90-99 Exam: General appearance: no acute distress, other (obese) - Head Head exam: Absent: abrasion, hematoma - Eye Eye exam: Present: EOMI Pupils: Present: VISHAL - Neck Neck exam: Absent: tenderness - Respiratory Respiratory exam: Present: rhonchi (scant bibasilar), wheezes (slight expirational wheeze throughout.). Absent: accessory muscle use, rales, stridor - Cardiovascular Cardiovascular exam: Present: regular rate and rhythm. Absent: bradycardia, carotid bruit, diastolic murmur, irregular rhythm, JVD, systolic murmur, tachycardia - GI/Abdominal GI/Abdominal exam: Present: soft. Absent: ascites, distended, firm, mass, tenderness - Extremities Exam Extremities exam: Present: normal inspection. Absent: full ROM, calf tenderness , edema - Back Exam Back exam: Present: normal inspection - Neurological Exam Neurological exam: Present: alert, oriented X3 - Psychiatric Psychiatric exam: Present: normal affect, normal mood - Skin Skin exam: Present: normal color, warm, dry. Absent: cyanosis, diaphoretic Result/EKG - Labs CBC & BMP: 09/14/16 06:21 09/14/16 06:21 Lab Results: I have reviewed the past 24 hour labs Labs: Laboratory Results - last 24 hr 09/13/16 09/13/16 09/13/16 11:44 16:51 20:25 WBC RBC Hgb Hct MCV MCH MCHC RDW Plt Count MPV Neut % (Auto) Lymph % (Auto) [place] % (Auto) Eos % (Auto) Baso % (Auto) Neut # (Auto) Lymph # (Auto) [place] # (Auto) Eos # (Auto) Baso # (Auto) Total Counted Immature Gran % Nucleated RBC % Immature Gran # Segmented Neutrophils Lymphocytes Monocytes Nucleated RBCs # Platelet Estimate Hypochromasia Sodium Potassium Chloride Carbon Dioxide Anion Gap BUN Creatinine GFR Calculation BUN/Creatinine Ratio Glucose POC Glucose 158 H 155 H 117 H Calculated Osmolality Calcium Magnesium 09/14/16 09/14/16 09/14/16 06:21 06:21 07:28 WBC 49.3 H* D RBC 4.59 Hgb 13.6 L Hct 43.0 MCV 93.7 MCH 30 MCHC 31.6 L RDW 14.1 Plt Count 187 D MPV 10.8 Neut % (Auto) 41.2 Lymph % (Auto) 54.1 [place] % (Auto) 3.3 Eos % (Auto) 0.0 Baso % (Auto) 0.1 Neut # (Auto) 20.3 H Lymph # (Auto) 26.7 H [place] # (Auto) 1.7 H Eos # (Auto) 0.0 Baso # (Auto) 0.0 Total Counted 100 Immature Gran % 1.3 Nucleated RBC % 0.0 Immature Gran # 0.63 Segmented Neutrophils 43 L Lymphocytes 53 Monocytes 4 Nucleated RBCs # 0.02 Platelet Estimate Adequate Hypochromasia 1+ Sodium 146 H Potassium 4.1 Chloride 107 Carbon Dioxide 29 Anion Gap 14.1 BUN 23 H Creatinine 1.10 GFR Calculation 72 BUN/Creatinine Ratio 20.00 Glucose 49 L POC Glucose 37 L* Calculated Osmolality 290.6 Calcium 9.5 Magnesium 2.4 09/14/16 09/14/16 08:10 09:17 WBC RBC Hgb Hct MCV MCH MCHC RDW Plt Count MPV Neut % (Auto) Lymph % (Auto) [place] % (Auto) Eos % (Auto) Baso % (Auto) Neut # (Auto) Lymph # (Auto) [place] # (Auto) Eos # (Auto) Baso # (Auto) Total Counted Immature Gran % Nucleated RBC % Immature Gran # Segmented Neutrophils Lymphocytes Monocytes Nucleated RBCs # Platelet Estimate Hypochromasia Sodium Potassium Chloride Carbon Dioxide Anion Gap BUN Creatinine GFR Calculation BUN/Creatinine Ratio Glucose POC Glucose 55 L 189 H Calculated Osmolality Calcium Magnesium - EKG EKG results: interpreted by me EKG shows: sinus rhythm Quality Measures - VTE Deep Vein Thrombosis/Pulmonary Embolism Present on Admission: No I, Lul Correia MD, personally performed the services described in this documentation, ascribed by Jackie Gimenez RN in my presence, and it is both accurate and complete 707 .
[2016-09-14] MEDS: TEMAZEPAM 15 MG CAPSULE PO PRN (21:17)
[2016-09-14] MEDS: FLUTICASONE 50 MCG NASAL SPRAY 16 GM BOTTLE BOTH NARES SCH (21:18)
[2016-09-15] MEDS: ALBUTEROL/IPRATROPIUM 3 ML NEB RESP TX SCH ×3 (01:12→20:56)
[2016-09-15 06:26] LABS: Basophils # 0.1 10*3/uL (0.0-0.2); Basophils % 0.2 % (0.0-0.8); Hematocrit 43.9 VOL% (42.0-52.0); Hemoglobin 13.8 GM/DL (14.0-18.0); Immature Granulocytes % 1.7 %; Immature Granulocytes Absolute 0.59 #; Lymphocytes # 20.5 10*3/uL (1.4-4.0); Lymphocytes % 58.4 % (21.2-54.2); Mean Corpuscular HGB Conc 31.4 GM/DL (32-36); Mean Corpuscular Hemoglobin 30 PG (27-34); Mean Corpuscular Volume 94.8 FL (87-102); Mean Platelet Volume 10.9 FL (9.6-12.0); Neutrophils # 12.9 10*3/uL (1.4-7.4); Neutrophils % 36.7 % (38.7-73.9); Platelet Count 164 T/CUMM (130-400); Red Blood Count 4.63 MC/CUMM (3.8-5.5); Red Cell Distribution Width 14.1 % (9.3-17.3); White Blood Count 35.1 T/CUMM (4-12)
[2016-09-15 06:53] LABS: Calcium 9.4 MG/DL (8.5-10.1); Osmolality,Calculated 293.6 MOS/KG (273-304)
[2016-09-15 06:54] LABS: Band Neutrophils 1 % (0-10); Hypochromasia 1+; Lymphocytes 61 % (20-55); Platelet Estimate Adequate; Segmented Neutrophils 32 % (50-85); Total Cells Counted 100
[2016-09-15] MEDS: ALLOPURINOL 300 MG TABLET PO SCH (10:40)
[2016-09-15] MEDS: THEOPHYLLINE ER 300 MG TABLET PO SCH ×2 (10:41→17:38)
[2016-09-15] MEDS: DUTASTERIDE 0.5 MG CAPSULE PO SCH (10:41)
[2016-09-15] MEDS: MULTIVITAMIN (CENTRUM) TABLET PO SCH (10:41)
[2016-09-15] MEDS: CARVEDILOL 12.5 MG TABLET PO SCH ×2 (10:42→17:38)
[2016-09-15] MEDS: INSULIN LISPRO 100 UNIT/ML SUBCUT SCH ×4 (10:42→21:13)
[2016-09-15] MEDS: LISINOPRIL 5 MG TABLET PO SCH (10:42)
[2016-09-15] MEDS: TAMSULOSIN 0.4 MG CAPSULE PO SCH (10:42)
[2016-09-15] MEDS: GABAPENTIN 300 MG CAPSULE PO SCH ×3 (10:42→21:13)
[2016-09-15] MEDS: ASPIRIN EC 81 MG TABLET PO SCH (10:42)
[2016-09-15] MEDS: traZODone 50 MG TABLET PO SCH (10:43)
[2016-09-15] MEDS: predniSONE 20 MG TABLET PO SCH (10:45)
[2016-09-15] MEDS: PANTOPRAZOLE 40 MG TABLET PO SCH (10:45)
[2016-09-15] MEDS: FUROSEMIDE 40 MG TABLET PO SCH (10:46)
[2016-09-15] MEDS: BRIMONIDINE 0.1% OPH SOLN 5 ML BOTTLE BOTH EYES SCH ×3 (10:46→21:12)
[2016-09-15] MEDS: SIMVASTATIN 40 MG TABLET PO SCH (10:47)
--- NOTE | 2016-09-15 13:11 | Hospitalist Progress Note ---
Assessment and Plan (1) Hypertension Status: Chronic Current Visit: No Qualifiers: Hypertension type: essential hypertension Qualified Code(s): I10 - Essential (primary) hypertension (2) Diabetes mellitus Status: Chronic Current Visit: No Qualifiers: Diabetes mellitus type: type 2 (3) CAD (coronary artery disease) Status: Chronic Current Visit: No (4) Pneumonia Status: Acute Assessment and plan: Continue levaquin Current Visit: No Qualifiers: Pneumonia type: due to unspecified organism Laterality: unspecified laterality Hospitalist: Subjective Interval history: Patient feeling better today. Still with cough and wheeze. Will change duonebs to Q4 hours. Steroids decreased yesterday. Leukocytosis slightly better today. Exam - Constitutional Vitals: Period Temp Pulse Resp BP Sys/Umana Pulse Ox Last 24 Hr 96.8 F-97.4 F 60-71 16-22 103-153/50-67 88-98 General appearance: over weight - Head Head exam: Present: normocephalic, atraumatic - Eye Eye exam: Present: EOMI Pupils: Present: VISHAL - ENT ENT exam: Present: normal exam, normal oropharynx - Neck Neck exam: Present: normal inspection. Absent: tenderness - Respiratory Respiratory exam: Present: decreased breath sounds, wheezes - Cardiovascular Cardiovascular exam: Present: regular rate and rhythm - GI/Abdominal GI/Abdominal exam: Present: normal bowel sounds, soft - Extremities Exam Extremities exam: Present: normal inspection - Back Exam Back exam: Present: normal inspection - Neurological Exam Neurological exam: Present: alert, oriented X3 - Psychiatric Psychiatric exam: Present: normal affect, normal mood - Skin Skin exam: Present: warm, intact Results - Labs CBC & BMP: 09/15/16 06:11 09/15/16 06:11 Quality Measures - VTE Deep Vein Thrombosis/Pulmonary Embolism Present on Admission: No
--- NOTE | 2016-09-15 13:36 | EKG Report ---
Stationary ECG Study [facility] Test Date: 09/15/2016 1:35:04 PM Pat Name: KERON PATEL Department: Room: 287 Gender: M Senior [employer]er: SIDRA : [id number] Requested by: Kavon Aviles Order Number: [id number] Reading MD: SUZI NUÑEZ Intervals [place] Rate: 69 P: 68 VA: 201 QRS: 32 QRSD: 107 T: -21 QT: 380 QTc: 400 Interpretive Statements SINUS RHYTHM WITH demand atrial pacing Premature ventricular complex POSSIBLE INFERIOR MYOCARDIAL INFARCTION, OF INDETERMINATE AGE WITH POSTERIOR EXTENSION MODERATE T-WAVE ABNORMALITY, CONSIDER LATERAL ISCHEMIA Electronically Signed On 09-18-16 11:06:34 CDT by SZUI NUÑEZ [email or web address]
[2016-09-15 13:44] LABS: Troponin I Only 0.052 NG/ML (0.00-0.045)
--- NOTE | 2016-09-15 14:28 | Cardiology Progress Note ---
Pernell Dozier Vanessa, RN, am scribing for, and in the presence of, Lul Correia MD 14:28. Assessment and Plan - Time spent with patient Time spent with patient: Less than 30 minutes (1) Pneumonia Status: Acute Assessment and plan: Most likely source of chest wall pain. IV antibiotics. Defer management to hospitalist service. Current Visit: No Qualifiers: Pneumonia type: due to unspecified organism Laterality: unspecified laterality (2) Ischemic cardiomyopathy Status: Acute Assessment and plan: Clinically, he continues to be well compensated at this time. Current Visit: Yes (3) Automatic implantable cardioverter-defibrillator in situ Status: Chronic Assessment and plan: Device appears to be functioning normally. Current Visit: Yes (4) COPD (chronic obstructive pulmonary disease) Status: Chronic Assessment and plan: Continues to have mild wheezing. Continue current plan of care. Defer primary management to hospitalist service. Current Visit: Yes (5) CAD (coronary artery disease) Status: Chronic Assessment and plan: History of CABG. No clinical findings for ACS or overt anginal complaint at this time. Current Visit: No (6) Diabetes mellitus Status: Chronic Assessment and plan: Metformin and SSI. Defer management to hospitalist service. Current Visit: No Qualifiers: Diabetes mellitus type: type 2 (7) Hypertension Status: Chronic Assessment and plan: Overall this is well controlled at this time. Continue current regimen. Current Visit: No Qualifiers: Hypertension type: essential hypertension Qualified Code(s): I10 - Essential (primary) hypertension (8) Leukocytosis Status: Acute Assessment and plan: White blood cell count with some improvement today and is 35,100. This is suspected to be related to use of steroids. Current Visit: Yes Cardiology - PN: Subj Interval history: Patient is awake and alert and is ambulating around the room with use of his cane. No difficulty or distress noted with ambulation. He denies dyspnea, chest discomfort, or other complaints with ambulation or at rest. He is afebrile and vitals have been stable. Sinus rhythm per telemetry monitoring with pulse rate in the 70s and occasional PAC. Leukocytosis with slight improvement today and white blood cell count noted to be 35,100. Cardiac enzymes were checked earlier this afternoon and revealed a troponin level of 0.052 with normal CPK and CK-MB. Current Medications Albuterol/Ipratropium (Duoneb) 3 ml RESP TX RT Q6H PRN PRN Reason: Shortness of Breath/Wheezing Albuterol/Ipratropium (Duoneb) 3 ml RESP TX RT Q4H [facility] Allopurinol (Zyloprim) 300 mg PO DAILY [facility] Last Admin: 09/15/16 10:40 Dose: 300 mg Aspirin () 81 mg PO DAILY [facility] Last Admin: 09/15/16 10:42 Dose: 81 mg Brimonidine Tartrate (Alphagan P 0.1%) 1 drop BOTH EYES TID [facility] Last Admin: 09/14/16 21:18 Dose: 1 drop Carvedilol (Coreg) 12.5 mg PO BID W/MEALS [facility] Last Admin: 09/15/16 10:42 Dose: 12.5 mg Dextrose/Water (D50) 25 gm IV PRN PRN PRN Reason: Hypoglycemia with IV access Dutasteride (Avodart) 0.5 mg PO DAILY [facility] Last Admin: 09/15/16 10:41 Dose: 0.5 mg Fluticasone Propionate (Flonase) 1 spray BOTH NARES BEDTIME [facility] Last Admin: 09/14/16 21:18 Dose: 1 spray Furosemide (Lasix Tab) 40 mg PO DAILY [facility] Last Admin: 09/15/16 10:46 Dose: 40 mg Gabapentin (Neurontin Cap/Tab) 300 mg PO TID [facility] Last Admin: 09/14/16 21:17 Dose: 300 mg Glucagon () 1 mg IM PRN PRN PRN Reason: Hypoglycemia w/o IV access Levofloxacin/Dextrose 750 mg/ (Premix) 150 mls @ 100 mls/hr IV Q24H [facility] Last Infusion: 09/14/16 17:32 Dose: Infused Magnesium Sulfate 2 gm/ Premix 50 mls @ 25 mls/hr IV .PER PROTOCOL PRN; Protocol PRN Reason: Per Protocol Last Admin: 09/11/16 17:16 Dose: 25 mls/hr Magnesium Sulfate 4 gm/ Premix 100 mls @ 25 mls/hr IV .PER PROTOCOL PRN; Protocol PRN Reason: Per Protocol Sodium Chloride (Ns) 1,000 mls @ 80 mls/hr IV .[id number] [facility] Last Admin: 09/14/16 21:17 Dose: Not Given Ibuprofen (Motrin Tab) 200 mg PO Q6H PRN PRN Reason: Fever, Headache, Mild Pain Last Admin: 09/12/16 12:07 Dose: 200 mg Insulin Human Lispro (Humalog) 0 unit SUBCUT ACHS [facility] PRN Reason: Protocol Last Admin: 09/14/16 21:19 Dose: Not Given Iron/Multivitamins/Folic Acid (Centrum Tab) 1 tablet PO DAILY [facility] Last Admin: 09/15/16 10:41 Dose: 1 tablet Lisinopril (Prinivil) 5 mg PO DAILY [facility] Last Admin: 09/15/16 10:42 Dose: 5 mg Magnesium Hydroxide (Milk Of Magnesia) 30 ml PO BID PRN PRN Reason: Constipation Last Admin: 09/14/16 09:51 Dose: 30 ml Pantoprazole Sodium (Protonix Tab) 40 mg PO DAILY [facility] Last Admin: 09/15/16 10:45 Dose: 40 mg Prednisone () 40 mg PO DAILY [facility] Last Admin: 09/15/16 10:45 Dose: 40 mg Simvastatin (Zocor) 40 mg PO DAILY [facility] Last Admin: 09/15/16 10:47 Dose: 40 mg Tamsulosin HCl (Flomax) 0.4 mg PO DAILY [facility] Last Admin: 09/15/16 10:42 Dose: 0.4 mg Temazepam (Restoril) 30 mg PO BEDTIME PRN PRN Reason: Insomnia Last Admin: 09/14/16 21:17 Dose: 30 mg Theophylline () 300 mg PO BID W/MEALS [facility] Last Admin: 09/15/16 10:41 Dose: 300 mg Trazodone HCl (Desyrel) 100 mg PO DAILY [facility] Last Admin: 09/15/16 10:43 Dose: 100 mg Zolpidem Tartrate (Ambien) 5 mg PO BEDTIME PRN PRN Reason: Sleep Last Admin: 09/12/16 00:18 Dose: 5 mg Exam (Progress Note) - Constitutional Vitals: Period Temp Pulse Resp BP Sys/Umana Pulse Ox Last 24 Hr 96.8 F-97.4 F 60-71 16-22 103-153/50-67 91-98 Exam: General appearance: no acute distress, other (obese) - Head Head exam: Absent: abrasion, hematoma - Eye Eye exam: Present: EOMI Pupils: Present: VISHAL - Neck Neck exam: Absent: tenderness - Respiratory Respiratory exam: Present: rhonchi (scant bibasilar), wheezes (slight expirational wheeze throughout.). Absent: accessory muscle use, rales, stridor - Cardiovascular Cardiovascular exam: Present: regular rate and rhythm. Absent: bradycardia, carotid bruit, diastolic murmur, irregular rhythm, JVD, systolic murmur, tachycardia - GI/Abdominal GI/Abdominal exam: Present: soft. Absent: ascites, distended, firm, mass, tenderness - Extremities Exam Extremities exam: Present: normal inspection. Absent: full ROM, calf tenderness , edema - Back Exam Back exam: Present: normal inspection - Neurological Exam Neurological exam: Present: alert, oriented X3 - Psychiatric Psychiatric exam: Present: normal affect, normal mood - Skin Skin exam: Present: normal color, warm, dry. Absent: cyanosis, diaphoretic Result/EKG - Labs CBC & BMP: 09/15/16 06:11 09/15/16 06:11 Lab Results: I have reviewed the past 24 hour labs Labs: Laboratory Results - last 24 hr 09/14/16 09/14/16 09/14/16 12:50 16:25 20:37 WBC RBC Hgb Hct MCV MCH MCHC RDW Plt Count MPV Neut % (Auto) Lymph % (Auto) [place] % (Auto) Eos % (Auto) Baso % (Auto) Neut # (Auto) Lymph # (Auto) [place] # (Auto) Eos # (Auto) Baso # (Auto) Total Counted Immature Gran % Nucleated RBC % Immature Gran # Segmented Neutrophils Band Neutrophils Lymphocytes Monocytes Nucleated RBCs # Platelet Estimate Hypochromasia Sodium Potassium Chloride Carbon Dioxide Anion Gap BUN Creatinine GFR Calculation BUN/Creatinine Ratio Glucose POC Glucose 167 H 233 H 251 H Calculated Osmolality Calcium Total Creatine Kinase CK-MB (CK-2) Troponin I 09/15/16 09/15/16 09/15/16 06:11 06:11 07:06 WBC 35.1 H RBC 4.63 Hgb 13.8 L Hct 43.9 MCV 94.8 MCH 30 MCHC 31.4 L RDW 14.1 Plt Count 164 MPV 10.9 Neut % (Auto) 36.7 L Lymph % (Auto) 58.4 H [place] % (Auto) 3.0 Eos % (Auto) 0.0 Baso % (Auto) 0.2 Neut # (Auto) 12.9 H Lymph # (Auto) 20.5 H [place] # (Auto) 1.0 H Eos # (Auto) 0.0 Baso # (Auto) 0.1 Total Counted 100 Immature Gran % 1.7 Nucleated RBC % 0.0 Immature Gran # 0.59 Segmented Neutrophils 32 L Band Neutrophils 1 Lymphocytes 61 H Monocytes 6 Nucleated RBCs # 0.00 Platelet Estimate Adequate Hypochromasia 1+ Sodium 146 H Potassium 5.0 Chloride 108 H Carbon Dioxide 30 Anion Gap 13.0 BUN 25 H Creatinine 1.20 GFR Calculation 65 BUN/Creatinine Ratio 20.00 Glucose 104 POC Glucose 108 H Calculated Osmolality 293.6 Calcium 9.4 Total Creatine Kinase CK-MB (CK-2) Troponin I 09/15/16 09/15/16 11:37 13:03 WBC RBC Hgb Hct MCV MCH MCHC RDW Plt Count MPV Neut % (Auto) Lymph % (Auto) [place] % (Auto) Eos % (Auto) Baso % (Auto) Neut # (Auto) Lymph # (Auto) [place] # (Auto) Eos # (Auto) Baso # (Auto) Total Counted Immature Gran % Nucleated RBC % Immature Gran # Segmented Neutrophils Band Neutrophils Lymphocytes Monocytes Nucleated RBCs # Platelet Estimate Hypochromasia Sodium Potassium Chloride Carbon Dioxide Anion Gap BUN Creatinine GFR Calculation BUN/Creatinine Ratio Glucose POC Glucose 171 H Calculated Osmolality Calcium Total Creatine Kinase 45 D CK-MB (CK-2) 2.1 Troponin I 0.052 H D - Diagnostic Findings Procedure: Chest x-ray: report reviewed by me, image reviewed by me - EKG EKG results: interpreted by me EKG shows: sinus rhythm (Occasional PVCs) Quality Measures - VTE Deep Vein Thrombosis/Pulmonary Embolism Present on Admission: No I, Lul Correia MD, personally performed the services described in this documentation, ascribed by Jackie Gimenez RN in my presence, and it is both accurate and complete 428 .
--- NOTE | 2016-09-15 15:09 | XRay Report ---
XR chest 2V Date: 09/15/2016 12:51 PM History: Shortness of breath Comparison: 09/12/2016 Technique: PA and lateral chest Findings: The heart is minimally enlarged with prior median sternotomy with left subclavian atrioventricular AICD. Residual parenchymal findings in the right middle lobe with increased nodularity. Stable mediastinum with degenerative changes. Prior cholecystectomy. Impression: Status post median sternotomy with chronic scarring and stable left subclavian atrioventricular AICD. Decreased consolidation centrally in the right middle lobe in patient with pneumonia. However there is progressive nodularity especially peripherally and continued follow-up chest x-ray is recommended. PROCEDURE INTERPRETED AT [facility] DEPARTMENT OF RADIOLOGY Final Report Signed by: Dr. lEisa Tobar
[2016-09-15] MEDS: LEVOFLOXACIN INJ 750 MG in PREMIX 1 EACH IV SCH (19:47)
[2016-09-15] MEDS: FLUTICASONE 50 MCG NASAL SPRAY 16 GM BOTTLE BOTH NARES SCH (21:13)
[2016-09-15] MEDS: TEMAZEPAM 15 MG CAPSULE PO PRN (21:18)
[2016-09-16] MEDS: ALBUTEROL/IPRATROPIUM 3 ML NEB RESP TX SCH ×6 (02:41→19:24)
[2016-09-16 05:43] LABS: Basophils # 0.1 10*3/uL (0.0-0.2); Basophils % 0.4 % (0.0-0.8); Eosinophils # 0.1 10*3/uL (0.0-0.87); Eosinophils % 0.1 % (0.00-10.9); Hematocrit 43.7 VOL% (42.0-52.0); Hemoglobin 13.8 GM/DL (14.0-18.0); Immature Granulocytes % 2.2 %; Immature Granulocytes Absolute 0.75 #; Lymphocytes # 21.6 10*3/uL (1.4-4.0); Lymphocytes % 63.7 % (21.2-54.2); Mean Corpuscular HGB Conc 31.6 GM/DL (32-36); Mean Corpuscular Hemoglobin 30 PG (27-34); Mean Platelet Volume 11.8 FL (9.6-12.0); Monocytes # 0.9 10*3/uL (0.11-0.8); Monocytes % 2.6 % (1.7-12.7); Neutrophils # 10.5 10*3/uL (1.4-7.4); Platelet Count 138 T/CUMM (130-400); Red Blood Count 4.65 MC/CUMM (3.8-5.5); Red Cell Distribution Width 13.7 % (9.3-17.3); White Blood Count 33.9 T/CUMM (4-12)
[2016-09-16 06:07] LABS: Nucleated Red Blood Cells 1 (0-5); Total Cells Counted 100
[2016-09-16 06:08] LABS: Band Neutrophils 2 % (0-10); Hypochromasia 2+; Lymphocytes 69 % (20-55); Platelet Estimate Normal; Segmented Neutrophils 27 % (50-85)
[2016-09-16] MEDS: traZODone 50 MG TABLET PO SCH (10:15)
[2016-09-16] MEDS: MULTIVITAMIN (CENTRUM) TABLET PO SCH (10:16)
[2016-09-16] MEDS: DUTASTERIDE 0.5 MG CAPSULE PO SCH (10:16)
[2016-09-16] MEDS: PANTOPRAZOLE 40 MG TABLET PO SCH (10:16)
[2016-09-16] MEDS: LISINOPRIL 5 MG TABLET PO SCH (10:16)
[2016-09-16] MEDS: ASPIRIN EC 81 MG TABLET PO SCH (10:16)
[2016-09-16] MEDS: predniSONE 20 MG TABLET PO SCH (10:16)
[2016-09-16] MEDS: GABAPENTIN 300 MG CAPSULE PO SCH ×3 (10:17→20:50)
[2016-09-16] MEDS: ALLOPURINOL 300 MG TABLET PO SCH (10:17)
[2016-09-16] MEDS: THEOPHYLLINE ER 300 MG TABLET PO SCH ×2 (10:17→17:22)
[2016-09-16] MEDS: FUROSEMIDE 40 MG TABLET PO SCH (10:18)
[2016-09-16] MEDS: SIMVASTATIN 40 MG TABLET PO SCH (10:18)
[2016-09-16] MEDS: BRIMONIDINE 0.1% OPH SOLN 5 ML BOTTLE BOTH EYES SCH ×3 (10:19→20:51)
[2016-09-16] MEDS: INSULIN LISPRO 100 UNIT/ML SUBCUT SCH ×4 (10:19→20:51)
[2016-09-16] MEDS: CARVEDILOL 12.5 MG TABLET PO SCH ×2 (10:19→17:22)
[2016-09-16] MEDS: TAMSULOSIN 0.4 MG CAPSULE PO SCH (10:20)
--- NOTE | 2016-09-16 14:21 | Hospitalist Progress Note ---
Assessment and Plan (1) Hypertension Status: Chronic Current Visit: No Qualifiers: Hypertension type: essential hypertension Qualified Code(s): I10 - Essential (primary) hypertension (2) Diabetes mellitus Status: Chronic Current Visit: No Qualifiers: Diabetes mellitus type: type 2 (3) CAD (coronary artery disease) Status: Chronic Current Visit: No (4) Pneumonia Status: Acute Assessment and plan: Continue levaquin Current Visit: No Qualifiers: Pneumonia type: due to unspecified organism Laterality: unspecified laterality Hospitalist: Subjective Interval history: No acute events overnight. He feels better. Breathing is improving. Leukocytosis slightly improved. Decreasing steroids again today. Exam - Constitutional Vitals: Period Temp Pulse Resp BP Sys/Umana Pulse Ox Last 24 Hr 97 F-97.7 F 48-79 17-22 100-147/55-65 91-99 General appearance: over weight - Head Head exam: Present: normocephalic, atraumatic - Eye Eye exam: Present: EOMI, nystagmus - ENT ENT exam: Present: normal exam, normal oropharynx - Neck Neck exam: Present: normal inspection - Respiratory Respiratory exam: Present: clear to auscultation bilaterally - Cardiovascular Cardiovascular exam: Present: regular rate and rhythm - GI/Abdominal GI/Abdominal exam: Present: normal bowel sounds, soft. Absent: firm, tenderness - Extremities Exam Extremities exam: Present: normal inspection - Back Exam Back exam: Present: normal inspection - Neurological Exam Neurological exam: Present: alert, oriented X3 - Psychiatric Psychiatric exam: Present: normal affect, normal mood - Skin Skin exam: Present: warm, intact Results - Labs CBC & BMP: 09/16/16 04:56 09/15/16 06:11 Quality Measures - VTE Deep Vein Thrombosis/Pulmonary Embolism Present on Admission: No
[2016-09-16] MEDS: LEVOFLOXACIN INJ 750 MG in PREMIX 1 EACH IV SCH (14:38)
--- NOTE | 2016-09-16 16:42 | Cardiology Progress Note ---
I, Jackie Gimenez RN, am scribing for, and in the presence of, Lul Correia MD 16:42. Assessment and Plan - Time spent with patient Time spent with patient: Less than 30 minutes (1) Pneumonia Status: Acute Assessment and plan: His pneumonia seems to be clearing up. His lungs sound much better. His cough is improved. He is now off oxygen. Current Visit: No Qualifiers: Pneumonia type: due to unspecified organism Laterality: unspecified laterality (2) Ischemic cardiomyopathy Status: Acute Assessment and plan: He is well compensated from a cardiac standpoint. I'm going to drop off of his case at this time. Please call if I can be of further assistance or if any new cardiac issues arise. Current Visit: Yes (3) Automatic implantable cardioverter-defibrillator in situ Status: Chronic Assessment and plan: Device appears to be functioning normally. Current Visit: Yes (4) COPD (chronic obstructive pulmonary disease) Status: Chronic Assessment and plan: Continues to have mild wheezing. Continue current plan of care. Defer primary management to hospitalist service. Current Visit: Yes (5) CAD (coronary artery disease) Status: Chronic Assessment and plan: History of CABG. No clinical findings for ACS or overt anginal complaint at this time. Current Visit: No (6) Diabetes mellitus Status: Chronic Assessment and plan: Metformin and SSI. Defer management to hospitalist service. Current Visit: No Qualifiers: Diabetes mellitus type: type 2 (7) Hypertension Status: Chronic Assessment and plan: Continue to be well controlled at this time. Continue current regimen. Current Visit: No Qualifiers: Hypertension type: essential hypertension Qualified Code(s): I10 - Essential (primary) hypertension (8) Leukocytosis Status: Acute Assessment and plan: White blood cell count with some improvement today and is 33.9. This is suspected to be related to use of steroids. Current Visit: Yes Cardiology - PN: Subj Interval history: Patient is awake and alert visiting with family member this afternoon. There have been no acute cardiac findings or changes in hemodynamic status overnight. No chest pain, shortness of breath, or other cardiac complaint. He is feeling dramatically better. He is off of oxygen. His biggest complaint today is of constipation and states he has not had a bowel movement since admission. White blood cells with improvement today and are 33,900. From a cardiac standpoint, he is stable. Current Medications Albuterol/Ipratropium (Duoneb) 3 ml RESP TX RT Q6H PRN PRN Reason: Shortness of Breath/Wheezing Albuterol/Ipratropium (Duoneb) 3 ml RESP TX RT Q4H [facility] Last Admin: 09/16/16 14:20 Dose: 3 ml Allopurinol (Zyloprim) 300 mg PO DAILY [facility] Last Admin: 09/16/16 10:17 Dose: 300 mg Aspirin () 81 mg PO DAILY [facility] Last Admin: 09/16/16 10:16 Dose: 81 mg Brimonidine Tartrate (Alphagan P 0.1%) 1 drop BOTH EYES TID [facility] Last Admin: 09/16/16 15:32 Dose: 1 drop Carvedilol (Coreg) 12.5 mg PO BID W/MEALS [facility] Last Admin: 09/16/16 10:19 Dose: 12.5 mg Dextrose/Water (D50) 25 gm IV PRN PRN PRN Reason: Hypoglycemia with IV access Dutasteride (Avodart) 0.5 mg PO DAILY [facility] Last Admin: 09/16/16 10:16 Dose: 0.5 mg Fluticasone Propionate (Flonase) 1 spray BOTH NARES BEDTIME [facility] Last Admin: 09/15/16 21:13 Dose: 1 spray Furosemide (Lasix Tab) 40 mg PO DAILY [facility] Last Admin: 09/16/16 10:18 Dose: 40 mg Gabapentin (Neurontin Cap/Tab) 300 mg PO TID [facility] Last Admin: 09/16/16 15:31 Dose: 300 mg Glucagon () 1 mg IM PRN PRN PRN Reason: Hypoglycemia w/o IV access Levofloxacin/Dextrose 750 mg/ (Premix) 150 mls @ 100 mls/hr IV Q24H [facility] Last Admin: 09/16/16 14:38 Dose: 100 mls/hr Magnesium Sulfate 2 gm/ Premix 50 mls @ 25 mls/hr IV .PER PROTOCOL PRN; Protocol PRN Reason: Per Protocol Last Admin: 09/11/16 17:16 Dose: 25 mls/hr Magnesium Sulfate 4 gm/ Premix 100 mls @ 25 mls/hr IV .PER PROTOCOL PRN; Protocol PRN Reason: Per Protocol Sodium Chloride (Ns) 1,000 mls @ 80 mls/hr IV .[id number] [facility] Last Admin: 09/14/16 21:17 Dose: Not Given Ibuprofen (Motrin Tab) 200 mg PO Q6H PRN PRN Reason: Fever, Headache, Mild Pain Last Admin: 09/12/16 12:07 Dose: 200 mg Insulin Human Lispro (Humalog) 0 unit SUBCUT ACHS HELENE PRN Reason: Protocol Last Admin: 09/16/16 14:37 Dose: Not Given Iron/Multivitamins/Folic Acid (Centrum Tab) 1 tablet PO DAILY [facility] Last Admin: 09/16/16 10:16 Dose: 1 tablet Lisinopril (Prinivil) 5 mg PO DAILY [facility] Last Admin: 09/16/16 10:16 Dose: 5 mg Magnesium Hydroxide (Milk Of Magnesia) 30 ml PO BID PRN PRN Reason: Constipation Last Admin: 09/14/16 09:51 Dose: 30 ml Pantoprazole Sodium (Protonix Tab) 40 mg PO DAILY [facility] Last Admin: 09/16/16 10:16 Dose: 40 mg Prednisone () 20 mg PO DAILY [facility] Simvastatin (Zocor) 40 mg PO DAILY [facility] Last Admin: 09/16/16 10:18 Dose: 40 mg Tamsulosin HCl (Flomax) 0.4 mg PO DAILY [facility] Last Admin: 09/16/16 10:20 Dose: 0.4 mg Temazepam (Restoril) 30 mg PO BEDTIME PRN PRN Reason: Insomnia Last Admin: 09/15/16 21:18 Dose: 30 mg Theophylline () 300 mg PO BID W/MEALS [facility] Last Admin: 09/16/16 10:17 Dose: 300 mg Trazodone HCl (Desyrel) 100 mg PO DAILY [facility] Last Admin: 09/16/16 10:15 Dose: 100 mg Zolpidem Tartrate (Ambien) 5 mg PO BEDTIME PRN PRN Reason: Sleep Last Admin: 09/12/16 00:18 Dose: 5 mg Exam (Progress Note) - Constitutional Vitals: Period Temp Pulse Resp BP Sys/Umana Pulse Ox Last 24 Hr 97 F-97.7 F 48-79 17-22 98-147/51-65 90-99 Exam: General appearance: no acute distress, other (obese) - Head Head exam: Absent: abrasion, hematoma - Eye Eye exam: Present: EOMI Pupils: Present: VISHAL - Neck Neck exam: Absent: tenderness - Respiratory Respiratory exam: Present: rhonchi (scant bibasilar), wheezes (slight expirational wheeze throughout.). Absent: accessory muscle use, rales, stridor - Cardiovascular Cardiovascular exam: Present: regular rate and rhythm. Absent: bradycardia, carotid bruit, diastolic murmur, irregular rhythm, JVD, systolic murmur, tachycardia - GI/Abdominal GI/Abdominal exam: Present: soft. Absent: ascites, distended, firm, mass, tenderness - Extremities Exam Extremities exam: Present: normal inspection. Absent: full ROM, calf tenderness , edema - Back Exam Back exam: Present: normal inspection - Neurological Exam Neurological exam: Present: alert, oriented X3 - Psychiatric Psychiatric exam: Present: normal affect, normal mood - Skin Skin exam: Present: normal color, warm, dry. Absent: cyanosis, diaphoretic Result/EKG - Labs CBC & BMP: 09/16/16 04:56 09/15/16 06:11 Lab Results: I have reviewed the past 24 hour labs Labs: Laboratory Results - last 24 hr 09/15/16 09/15/16 09/16/16 17:29 20:07 04:56 WBC 33.9 H RBC 4.65 Hgb 13.8 L Hct 43.7 MCV 94.0 MCH 30 MCHC 31.6 L RDW 13.7 Plt Count 138 MPV 11.8 Neut % (Auto) 31.0 L Lymph % (Auto) 63.7 H [place] % (Auto) 2.6 Eos % (Auto) 0.1 Baso % (Auto) 0.4 Neut # (Auto) 10.5 H Lymph # (Auto) 21.6 H [place] # (Auto) 0.9 H Eos # (Auto) 0.1 Baso # (Auto) 0.1 Total Counted 100 Immature Gran % 2.2 Nucleated RBC % 0.0 Immature Gran # 0.75 Segmented Neutrophils 27 L Band Neutrophils 2 Lymphocytes 69 H Monocytes 2 Nucleated RBCs 1 Nucleated RBCs # 0.00 Platelet Estimate Normal Hypochromasia 2+ POC Glucose 186 H 245 H 09/16/16 09/16/16 09/16/16 07:45 11:27 14:18 WBC RBC Hgb Hct MCV MCH MCHC RDW Plt Count MPV Neut % (Auto) Lymph % (Auto) [place] % (Auto) Eos % (Auto) Baso % (Auto) Neut # (Auto) Lymph # (Auto) [place] # (Auto) Eos # (Auto) Baso # (Auto) Total Counted Immature Gran % Nucleated RBC % Immature Gran # Segmented Neutrophils Band Neutrophils Lymphocytes Monocytes Nucleated RBCs Nucleated RBCs # Platelet Estimate Hypochromasia POC Glucose 103 169 H 198 H 09/16/16 15:18 WBC RBC Hgb Hct MCV MCH MCHC RDW Plt Count MPV Neut % (Auto) Lymph % (Auto) [place] % (Auto) Eos % (Auto) Baso % (Auto) Neut # (Auto) Lymph # (Auto) [place] # (Auto) Eos # (Auto) Baso # (Auto) Total Counted Immature Gran % Nucleated RBC % Immature Gran # Segmented Neutrophils Band Neutrophils Lymphocytes Monocytes Nucleated RBCs Nucleated RBCs # Platelet Estimate Hypochromasia POC Glucose 221 H - EKG EKG results: interpreted by me EKG shows: sinus rhythm (Pulse rate 60s; no ectopy) Quality Measures - VTE Deep Vein Thrombosis/Pulmonary Embolism Present on Admission: No I, Lul Correia MD, personally performed the services described in this documentation, ascribed by Jackie Gimenez RN in my presence, and it is both accurate and complete [id number] .
[2016-09-16] MEDS: FLUTICASONE 50 MCG NASAL SPRAY 16 GM BOTTLE BOTH NARES SCH (20:51)
[2016-09-16] MEDS: TEMAZEPAM 15 MG CAPSULE PO PRN (20:57)
[2016-09-17] MEDS: ALBUTEROL/IPRATROPIUM 3 ML NEB RESP TX SCH ×8 (00:22→23:49)
[2016-09-17 05:13] LABS: Basophils # 0.1 10*3/uL (0.0-0.2); Basophils % 0.3 % (0.0-0.8); Eosinophils # 0.1 10*3/uL (0.0-0.87); Eosinophils % 0.1 % (0.00-10.9); Hematocrit 43.2 VOL% (42.0-52.0); Hemoglobin 13.9 GM/DL (14.0-18.0); Immature Granulocytes % 2.9 %; Immature Granulocytes Absolute 1.14 #; Lymphocytes # 24.4 10*3/uL (1.4-4.0); Lymphocytes % 61.4 % (21.2-54.2); Mean Corpuscular HGB Conc 32.2 GM/DL (32-36); Mean Corpuscular Hemoglobin 30 PG (27-34); Mean Corpuscular Volume 92.7 FL (87-102); Mean Platelet Volume 11.3 FL (9.6-12.0); Monocytes # 1.4 10*3/uL (0.11-0.8); Monocytes % 3.4 % (1.7-12.7); Neutrophils # 12.7 10*3/uL (1.4-7.4); Neutrophils % 31.9 % (38.7-73.9); Platelet Count 165 T/CUMM (130-400); Red Blood Count 4.66 MC/CUMM (3.8-5.5); Red Cell Distribution Width 13.6 % (9.3-17.3); White Blood Count 39.8 T/CUMM (4-12)
[2016-09-17] MEDS: MAGNESIUM HYDROXIDE SUSP 30 ML UDCUP PO PRN ×2 (05:30→09:40)
[2016-09-17 05:34] LABS: Band Neutrophils 1 % (0-10); Lymphocytes 68 % (20-55); Myelocytes 2 %; Nucleated Red Blood Cells 1 (0-5); Segmented Neutrophils 28 % (50-85); Total Cells Counted 100
[2016-09-17 05:35] LABS: Platelet Estimate Normal; Smudge Cells Many
[2016-09-17] MEDS: INSULIN LISPRO 100 UNIT/ML SUBCUT SCH ×4 (09:12→21:04)
[2016-09-17] MEDS: MULTIVITAMIN (CENTRUM) TABLET PO SCH (09:33)
[2016-09-17] MEDS: FUROSEMIDE 40 MG TABLET PO SCH (09:33)
[2016-09-17] MEDS: PANTOPRAZOLE 40 MG TABLET PO SCH (09:34)
[2016-09-17] MEDS: DUTASTERIDE 0.5 MG CAPSULE PO SCH (09:34)
[2016-09-17] MEDS: ALLOPURINOL 300 MG TABLET PO SCH (09:34)
[2016-09-17] MEDS: GABAPENTIN 300 MG CAPSULE PO SCH ×3 (09:34→21:03)
[2016-09-17] MEDS: ASPIRIN EC 81 MG TABLET PO SCH (09:34)
[2016-09-17] MEDS: SIMVASTATIN 40 MG TABLET PO SCH (09:35)
[2016-09-17] MEDS: THEOPHYLLINE ER 300 MG TABLET PO SCH ×2 (09:35→17:37)
[2016-09-17] MEDS: TAMSULOSIN 0.4 MG CAPSULE PO SCH (09:35)
[2016-09-17] MEDS: predniSONE 20 MG TABLET PO SCH (09:35)
[2016-09-17] MEDS: CARVEDILOL 12.5 MG TABLET PO SCH ×2 (09:36→17:37)
[2016-09-17] MEDS: traZODone 50 MG TABLET PO SCH (09:36)
[2016-09-17] MEDS: LISINOPRIL 5 MG TABLET PO SCH (09:36)
[2016-09-17] MEDS: BRIMONIDINE 0.1% OPH SOLN 5 ML BOTTLE BOTH EYES SCH ×3 (09:36→21:03)
[2016-09-17] MEDS ORDERED: LACTULOSE 20 GM/30 ML UDCUP PO PRN (12:29)
--- NOTE | 2016-09-17 13:07 | Hospitalist Progress Note ---
Assessment and Plan (1) Hypertension Status: Chronic Current Visit: No Qualifiers: Hypertension type: essential hypertension Qualified Code(s): I10 - Essential (primary) hypertension (2) Diabetes mellitus Status: Chronic Assessment and plan: Hypoglycemic today. Hold his metformin and glimepiride Current Visit: No Qualifiers: Diabetes mellitus type: type 2 (3) CAD (coronary artery disease) Status: Chronic Current Visit: No (4) Pneumonia Status: Acute Assessment and plan: Continue levaquin Current Visit: No Qualifiers: Pneumonia type: due to unspecified organism Laterality: unspecified laterality Hospitalist: Subjective Interval history: Doing better. Now complaining of constipation. Will give lactulose. Also with leukocytosis, not improving. Most likely steroid induced. Possible discharge tomorrow. Will need cbc by pcp in about 2 weeks. Exam - Constitutional Vitals: Period Temp Pulse Resp BP Sys/Umana Pulse Ox Last 24 Hr 97.3 F-98.7 F 51-93 16-93 98-163/51-86 90-99 General appearance: over weight - Head Head exam: Present: normocephalic, atraumatic - Eye Eye exam: Present: EOMI Pupils: Present: VISHAL - ENT ENT exam: Present: normal exam - Neck Neck exam: Present: normal inspection. Absent: tenderness - Respiratory Respiratory exam: Present: clear to auscultation bilaterally - Cardiovascular Cardiovascular exam: Present: regular rate and rhythm - GI/Abdominal GI/Abdominal exam: Present: normal bowel sounds, soft. Absent: tenderness - Extremities Exam Extremities exam: Present: normal inspection - Back Exam Back exam: Present: normal inspection - Neurological Exam Neurological exam: Present: alert, oriented X3 - Psychiatric Psychiatric exam: Present: normal affect, normal mood - Skin Skin exam: Present: warm, intact Results - Labs CBC & BMP: 09/17/16 04:26 09/15/16 06:11 Quality Measures - VTE Deep Vein Thrombosis/Pulmonary Embolism Present on Admission: No
[2016-09-17] MEDS: LEVOFLOXACIN INJ 750 MG in PREMIX 1 EACH IV SCH (14:48)
[2016-09-17] MEDS: FLUTICASONE 50 MCG NASAL SPRAY 16 GM BOTTLE BOTH NARES SCH (21:03)
[2016-09-18] MEDS: ALBUTEROL/IPRATROPIUM 3 ML NEB RESP TX SCH ×3 (03:16→12:07)
[2016-09-18 04:24] LABS: Basophils % 0.1 % (0.0-0.8); Eosinophils # 0.2 10*3/uL (0.0-0.87); Eosinophils % 0.5 % (0.00-10.9); Hematocrit 44.7 VOL% (42.0-52.0); Hemoglobin 14.4 GM/DL (14.0-18.0); Immature Granulocytes % 2.9 %; Immature Granulocytes Absolute 1.22 #; Lymphocytes # 25.2 10*3/uL (1.4-4.0); Lymphocytes % 60.6 % (21.2-54.2); Mean Corpuscular HGB Conc 32.2 GM/DL (32-36); Mean Corpuscular Hemoglobin 30 PG (27-34); Mean Corpuscular Volume 93.1 FL (87-102); Mean Platelet Volume 11.3 FL (9.6-12.0); Monocytes # 1.4 10*3/uL (0.11-0.8); Monocytes % 3.5 % (1.7-12.7); Neutrophils # 13.5 10*3/uL (1.4-7.4); Neutrophils % 32.4 % (38.7-73.9); Platelet Count 178 T/CUMM (130-400); Red Cell Distribution Width 13.6 % (9.3-17.3)
[2016-09-18 04:53] LABS: White Blood Count 41.7 T/CUMM (4-12)
[2016-09-18 06:48] LABS: Band Neutrophils 3 % (0-10); Lymphocytes 37 % (20-55); Segmented Neutrophils 59 % (50-85); Total Cells Counted 100
[2016-09-18 06:49] LABS: Anisocytosis 1+; Smudge Cells Moderate
[2016-09-18 06:50] LABS: Platelet Estimate Normal
[2016-09-18] MEDS: INSULIN LISPRO 100 UNIT/ML SUBCUT SCH ×2 (07:48→12:04)
[2016-09-18] MEDS: SIMVASTATIN 40 MG TABLET PO SCH (08:59)
[2016-09-18] MEDS: CARVEDILOL 12.5 MG TABLET PO SCH (08:59)
[2016-09-18] MEDS: FUROSEMIDE 40 MG TABLET PO SCH (08:59)
[2016-09-18] MEDS: ASPIRIN EC 81 MG TABLET PO SCH (08:59)
[2016-09-18] MEDS: GABAPENTIN 300 MG CAPSULE PO SCH (08:59)
[2016-09-18] MEDS: THEOPHYLLINE ER 300 MG TABLET PO SCH (08:59)
[2016-09-18] MEDS: ALLOPURINOL 300 MG TABLET PO SCH (08:59)
[2016-09-18] MEDS: LISINOPRIL 5 MG TABLET PO SCH (09:00)
[2016-09-18] MEDS: MULTIVITAMIN (CENTRUM) TABLET PO SCH (09:00)
[2016-09-18] MEDS: DUTASTERIDE 0.5 MG CAPSULE PO SCH (09:00)
[2016-09-18] MEDS: PANTOPRAZOLE 40 MG TABLET PO SCH (09:00)
[2016-09-18] MEDS: predniSONE 20 MG TABLET PO SCH (09:00)
[2016-09-18] MEDS: TAMSULOSIN 0.4 MG CAPSULE PO SCH (09:00)
[2016-09-18] MEDS: traZODone 50 MG TABLET PO SCH (09:00)
[2016-09-18] MEDS: BRIMONIDINE 0.1% OPH SOLN 5 ML BOTTLE BOTH EYES SCH (09:01)
--- NOTE | 2016-09-18 10:00 | Discharge Summary ---
<JonahSukhwinder gutierrez - Last Filed: 09/18/16 09:56> Hospital Course - Hospital Course Hospital Course: This is a 75-year-old male patient who was admitted on 09/11/2016 for shortness of breath and right-sided chest pain. Patient has a history of pneumonia, ischemic cardiomyopathy, hypertension, COPD. On admission, troponins were 0.36 , white blood count was 20.2, potassium 3.5, sodium 147. Chest x-ray revealed right middle lobe infiltrate and the patient was admitted to telemetry for further management. Cardiology was consulted for evaluation of the chest pain. It was determined that chest pain was most likely related to the pneumonia. Echocardiogram done on August 12 revealed an EF of 40%. Patient's hospital course was relatively uncomplicated. He was treated with Levaquin 750 mg IV for pneumonia with little improvement in his white blood cell count. Patient was also started on prednisone for COPD and wheezing. Patient's leukocytosis appeared to worsen which is believed to be related to steroid use. We weaned the steroids from 60 mg daily down to 20 mg. Today, white blood cell count is 41.7. Clinically, the patient is stable and much better. He will be discharged today with follow-up by his PCP for CBC. - Time spent with patient Time with patient DS: Greater than 30 minutes Discharge Plan - Discharge Medications Continue Allopurinol 300 mg PO DAILY Brimonidine 0.1% Oph Soln [Alphagan P 0.1% Oph Soln] 1 drop BOTH EYES BID Carvedilol 12.5 mg PO BID W/MEALS Dutasteride [Avodart] 0.5 mg PO DAILY Fluticasone 50 Mcg Nasal [place] [Flonase Nasal [place]] 1 spray BOTH NARES BEDTIME Gabapentin 300 mg PO TID Glimepiride 4 mg PO DAILY Lisinopril 5 mg PO DAILY Multivitamin [Multivitamins] 1 tablet PO DAILY Simvastatin 40 mg PO DAILY Tamsulosin HCl 0.4 mg PO DAILY Temazepam 30 mg PO BEDTIME PRN PRN Reason: Insomnia Theophylline ER Tab 300 mg PO BID W/MEALS Omeprazole 40 mg PO DAILY Ibuprofen Tab [Motrin Tab] 200 mg PO Q6H PRN PRN Reason: Fever, Headache, Mild Pain Aspirin [Ecotrin] 81 mg PO DAILY Albuterol/Ipratropium Neb [Duoneb] 3 ml RESP TX RT Q6H Furosemide 40 mg PO DAILY Metformin HCl 500 mg PO BID W/MEALS - Follow Up or Referral Follow Up: Saad Bradley MD [Physician] - 1 Week (cbc check for leukocytsis (off steroids)) - Forms/Instructions Exam - Constitutional Vitals: Period Temp Pulse Resp BP Sys/Umana Pulse Ox Last 24 Hr 97.3 F-97.9 F 61-78 16-20 100-165/54-76 91-99 Discharge Results Labs on day of discharge: Labs from last 24 hours 09/18/16 09/18/16 09/17/16 07:33 03:47 19:17 WBC 41.7 H* RBC 4.80 Hgb 14.4 Hct 44.7 MCV 93.1 MCH 30 MCHC 32.2 RDW 13.6 Plt Count 178 MPV 11.3 Neut % (Auto) 32.4 L Lymph % (Auto) 60.6 H [place] % (Auto) 3.5 Eos % (Auto) 0.5 Baso % (Auto) 0.1 Neut # (Auto) 13.5 H Lymph # (Auto) 25.2 H [place] # (Auto) 1.4 H Eos # (Auto) 0.2 Baso # (Auto) 0.0 Total Counted 100 Immature Gran % 2.9 Nucleated RBC % 0.0 Immature Gran # 1.22 Segmented Neutrophils 59 Band Neutrophils 3 Lymphocytes 37 Monocytes 1 L Nucleated RBCs # 0.00 Smudge Cells Moderate Platelet Estimate Normal Anisocytosis 1+ POC Glucose 131 H 192 H 09/17/16 09/17/16 15:22 11:28 WBC RBC Hgb Hct MCV MCH MCHC RDW Plt Count MPV Neut % (Auto) Lymph % (Auto) [place] % (Auto) Eos % (Auto) Baso % (Auto) Neut # (Auto) Lymph # (Auto) [place] # (Auto) Eos # (Auto) Baso # (Auto) Total Counted Immature Gran % Nucleated RBC % Immature Gran # Segmented Neutrophils Band Neutrophils Lymphocytes Monocytes Nucleated RBCs # Smudge Cells Platelet Estimate Anisocytosis POC Glucose 252 H 172 H DS: Provider Date of admission: 09/11/16 14:18 Primary care physician: . No PCP Attending physician on admission: Abelardo Anne MD Consults: 09/11/16 14:24 Consult to Physician [CONS] Routine Comment: Consulting Provider: Zheng Mahan Consult to Specialist Group: Cardiology 09/11/16 14:30 Consult to Pharmacy [CONS] Routine Reason for Pharmacy Consult: Adjust Meds Renal Funct 09/11/16 16:00 Consult to [facility], Educator [CONS] Routine Reason for Sock And Stocking Ironer: Diabetes Education Discharging clinician: Sukhwinder JUAREZ Expected date of discharge: 09/18/16 <Balaji Cheney - Last Filed: 09/18/16 11:03> Hospital Course - Hospital Course Hospital Course: Patient is stable and will be discharged home today. He does have marked leukocytosis. Believe that this is due to steroid use, patient is clinically much improved. He will need to follow-up with his pcp for cbc panel off of steroids. Diagnosis - Discharge Diagnosis (1) Hypertension Status: Chronic (2) Diabetes mellitus Status: Chronic (3) CAD (coronary artery disease) Status: Chronic (4) Pneumonia Status: Resolved Discharge Plan - Discharge Data Condition at Discharge: Stable Discharge Diet: advance to your usual diet Activity: resume usual activities as tolerated Hygiene: no restrictions Weight Bearing at Discharge: weight bear as tolerated Driving: no restrictions Contact your physician if you experience:: fever over 101, Shortness of breath Exam - Constitutional General appearance: over weight - Head Head exam: Present: normocephalic, atraumatic - Eye Eye exam: Present: EOMI Pupils: Present: VISHAL - ENT ENT exam: Present: normal exam, normal oropharynx - Neck Neck exam: Present: normal inspection. Absent: tenderness - Respiratory Respiratory exam: Present: clear to auscultation bilaterally. Absent: rhonchi, wheezes - Cardiovascular Cardiovascular exam: Present: regular rate and rhythm - GI/Abdominal GI/Abdominal exam: Present: normal bowel sounds, soft. Absent: mass, tenderness - Extremities Exam Extremities exam: Present: normal inspection - Back Exam Back exam: Present: normal inspection - Neurological Exam Neurological exam: Present: alert, oriented X3 - Psychiatric Psychiatric exam: Present: normal affect, normal mood - Skin Skin exam: Present: warm, intact
[2016-09-18 12:08] VITALS: BP 101/52
== END 2016-09-18 12:20 | disposition home or self-care (01) | DRG 194 ==
LOC: N.ED 12:51 → SUATTDRO 14:18 → N.EDINP 14:18 → N.TELEN 14:38
PROVIDERS: ADMIT Internal Medicine; ATTEND Internal Medicine

== ENCOUNTER 2018-05-13 15:32 | Inpatient (IN) ==
[2018-05-13] MEDS ORDERED: PROPOFOL 1,000 MG/100 ML BOTTLE IV ONE (15:46)
[2018-05-13] MEDS ORDERED: ROCURONIUM 100 MG/10 ML VIAL IV ONE ×2 (15:46→18:22)
[2018-05-13] MEDS ORDERED: ETOMIDATE 20 MG/10 ML VIAL IV ONE ×2 (15:46→18:21)
[2018-05-13 16:04] LABS: Basophils # 0.1 10*3/uL (0.0-0.2); Basophils % 0.4 % (0.0-0.8); Eosinophils # 0.5 10*3/uL (0.0-0.87); Eosinophils % 1.8 % (0.00-10.9); Hematocrit 45.2 VOL% (42.0-52.0); Immature Granulocytes % 0.5 %; Immature Granulocytes Absolute 0.13 #; Lymphocytes # 12.9 10*3/uL (1.4-4.0); Lymphocytes % 47.5 % (21.2-54.2); Mean Corpuscular Hemoglobin 30 PG (27-34); Mean Corpuscular Volume 96.2 FL (87-102); Mean Platelet Volume 11.3 FL (9.6-12.0); Monocytes # 1.3 10*3/uL (0.11-0.8); Monocytes % 4.8 % (1.7-12.7); Neutrophils # 12.3 10*3/uL (1.4-7.4); Platelet Count 174 T/CUMM (130-400); Red Cell Distribution Width 13.8 % (9.3-17.3); White Blood Count 27.2 T/CUMM (4-12)
[2018-05-13 16:11] LABS: ABG Base Excess 0.4 MMOL/L (-2.5-2.5); ABG HCO3 28.8 MMOL/L (20-26); ABG PCO2 62.7 MM HG (35-48); ABG PO2 132.3 MM HG (80-95); ABG TCO2 30.7 MMOL/L (23-27); Allen Test Positive; Pt O2 Delivery Device Ventilator
[2018-05-13 16:13] LABS: ABG Oxygen Saturation 98.2 % (95-100)
[2018-05-13 16:16] LABS: Albumin 3.6 G/DL (3.4-5.0); Bilirubin,Total 0.6 MG/DL (0.2-1.0); Calcium 8.4 MG/DL (8.5-10.1); Osmolality,Calculated 286.3 MOS/KG (273-304); Potassium 4.1 MMOL/L (3.5-5.1); Total Protein 6.6 G/DL (6.4-8.3)
[2018-05-13 16:17] LABS: PT Patient Result 10.7 SECS; Partial Thromboplastin Time 24.6 SECS (0-40)
[2018-05-13 16:35] LABS: Eosinophils 2 % (0-10); Lymphocytes 30 % (20-55); Segmented Neutrophils 63 % (50-85); Total Cells Counted 100
[2018-05-13 16:36] LABS: Atypical Lymphocytes Few
[2018-05-13 16:37] LABS: Hypochromasia Slight; Macrocytosis Slight; Stomatocytes Slight
[2018-05-13 16:39] LABS: Platelet Estimate Normal
[2018-05-13 16:43] LABS: Apearance,Urine CLEAR (Clear); Bilirubin,Urine Negative (Negative); Blood, Urine Small mg/dL (Negative); Glucose,Urine (UA) Negative (Negative); Hyaline Casts,Urine 1 /LPF (0-3); Ketones,Urine Negative (Negative); Mucus,Urine Occasional /LPF (Occasional); Nitrite,Urine Negative (Negative); Protein,Urine 100 MG/DL; Squamous Epithelial Cell,Urine Occasional /HPF (0-10); Urine Color Yellow (Yellow); Urine Specific Gravity 1.011 (1.001-1.035); Urine Urobilinogen < 2.0 EU/DL (0.2-1.0); WBC,Urine 1 /HPF (0-6)
[2018-05-13 16:53] LABS: Smudge Cells Moderate
[2018-05-13] MEDS ORDERED: SODIUM CHLORIDE 0.9% 500 ML IV STA (18:23)
[2018-05-13] MEDS: PROPOFOL 1,000 MG/100 ML BOTTLE IV SCH (18:25)
[2018-05-13] MEDS: MEROPENEM 1,000 MG in SODIUM CHLORIDE 0.9% 100 ML IV SCH (18:48)
[2018-05-13] MEDS: SODIUM CHLORIDE 0.9% 1,000 ML IV SCH (18:57)
[2018-05-13] MEDS ORDERED: FUROSEMIDE 40 MG/4 ML VIAL IV ONE (19:30)
[2018-05-13] MEDS: ENOXAPARIN 40 MG/0.4 ML SYRINGE SUBCUT SCH (20:02)
[2018-05-13] MEDS: BRIMONIDINE 0.1% OPH SOLN 5 ML BOTTLE BOTH EYES SCH (20:03)
[2018-05-13] MEDS: INSULIN REGULAR 100 UNIT/ML SUBCUT SCH (23:27)
[2018-05-14] MEDS: PROPOFOL 1,000 MG/100 ML BOTTLE IV SCH ×5 (00:52→23:32)
[2018-05-14 04:05] LABS: Pt O2 Delivery Device Ventilator
[2018-05-14 04:07] LABS: ABG Base Excess 5.2 MMOL/L (-2.5-2.5); ABG Oxygen Saturation 98.9 % (95-100); ABG PCO2 44.3 MM HG (35-48); ABG PH 7.448 (7.35-7.45); ABG PO2 143.7 MM HG (80-95); ABG TCO2 31.3 MMOL/L (23-27)
[2018-05-14] MEDS: INSULIN REGULAR 100 UNIT/ML SUBCUT SCH ×4 (05:22→23:20)
[2018-05-14] MEDS ORDERED: DEXTROSE 50% 25 GM/50 ML VIAL IV PRN ×2 (05:24→08:41)
[2018-05-14] MEDS ORDERED: DEXTROSE 50% 25 GM/50 ML VIAL IV ONE (05:29)
[2018-05-14] MEDS: MEROPENEM 1,000 MG in SODIUM CHLORIDE 0.9% 100 ML IV SCH ×2 (05:33→17:12)
[2018-05-14 06:14] LABS: Basophils # 0.1 10*3/uL (0.0-0.2); Basophils % 0.3 % (0.0-0.8); Eosinophils # 0.2 10*3/uL (0.0-0.87); Eosinophils % 1.5 % (0.00-10.9); Hematocrit 40.6 VOL% (42.0-52.0); Hemoglobin 12.3 GM/DL (14.0-18.0); Immature Granulocytes % 0.3 %; Immature Granulocytes Absolute 0.04 #; Lymphocytes % 40.8 % (21.2-54.2); Mean Corpuscular HGB Conc 30.3 GM/DL (32-36); Mean Corpuscular Hemoglobin 29 PG (27-34); Mean Corpuscular Volume 94.4 FL (87-102); Monocytes # 1.3 10*3/uL (0.11-0.8); Monocytes % 8.7 % (1.7-12.7); Neutrophils # 7.2 10*3/uL (1.4-7.4); Neutrophils % 48.4 % (38.7-73.9); Platelet Count 145 T/CUMM (130-400); Red Cell Distribution Width 13.9 % (9.3-17.3); White Blood Count 14.8 T/CUMM (4-12)
[2018-05-14 06:41] LABS: Calcium 8.3 MG/DL (8.5-10.1); Osmolality,Calculated 284.7 MOS/KG (273-304); Potassium 3.1 MMOL/L (3.5-5.1)
[2018-05-14 07:02] LABS: Troponin I 0.072 NG/ML (0.00-0.045)
[2018-05-14] MEDS ORDERED: PHENYLEPHRINE DRIP 0 MG/0 ML PREMIX IV ONE (07:02)
[2018-05-14] MEDS: FUROSEMIDE 40 MG/4 ML VIAL IV SCH ×2 (08:05→15:56)
[2018-05-14] MEDS: ALLOPURINOL 300 MG TABLET PO SCH (08:07)
[2018-05-14] MEDS: ASPIRIN EC 81 MG TABLET PO SCH (08:07)
[2018-05-14] MEDS: DUTASTERIDE 0.5 MG CAPSULE PO SCH ×2 (08:07→08:22)
[2018-05-14] MEDS ORDERED: MAGNESIUM SULF RIDER 4 GM in PREMIX 1 EACH IV ONE (08:39)
[2018-05-14] MEDS ORDERED: GLUCAGON 1 MG VIAL IM PRN (08:41)
[2018-05-14] MEDS: BRIMONIDINE 0.1% OPH SOLN 5 ML BOTTLE BOTH EYES SCH ×3 (08:58→20:13)
[2018-05-14] MEDS: POTASSIUM CHLORIDE 20 MEQ/15 ML UDCUP PER TUBE SCH ×4 (08:59→20:13)
[2018-05-14] MEDS ORDERED: LORazepam 2 MG/1 ML VIAL IV ONE (10:05)
[2018-05-14] MEDS: ENOXAPARIN 40 MG/0.4 ML SYRINGE SUBCUT SCH (20:12)
[2018-05-15] MEDS: POTASSIUM CHLORIDE 20 MEQ/15 ML UDCUP PER TUBE SCH ×2 (00:05→05:22)
[2018-05-15] MEDS: PROPOFOL 1,000 MG/100 ML BOTTLE IV SCH ×5 (04:21→23:45)
[2018-05-15 04:22] LABS: ABG Base Excess 6.9 MMOL/L (-2.5-2.5); ABG HCO3 32.4 MMOL/L (20-26); ABG PO2 227.6 MM HG (80-95); Allen Test Positive; Pt O2 Delivery Device Ventilator
[2018-05-15 04:58] LABS: Basophils # 0.1 10*3/uL (0.0-0.2); Basophils % 0.4 % (0.0-0.8); Eosinophils # 0.2 10*3/uL (0.0-0.87); Eosinophils % 1.3 % (0.00-10.9); Hematocrit 36.8 VOL% (42.0-52.0); Hemoglobin 11.2 GM/DL (14.0-18.0); Immature Granulocytes % 0.2 %; Immature Granulocytes Absolute 0.03 #; Lymphocytes # 5.9 10*3/uL (1.4-4.0); Lymphocytes % 46.6 % (21.2-54.2); Mean Corpuscular HGB Conc 30.4 GM/DL (32-36); Mean Corpuscular Hemoglobin 29 PG (27-34); Mean Corpuscular Volume 94.8 FL (87-102); Mean Platelet Volume 11.8 FL (9.6-12.0); Monocytes # 1.2 10*3/uL (0.11-0.8); Monocytes % 9.3 % (1.7-12.7); Neutrophils # 5.3 10*3/uL (1.4-7.4); Neutrophils % 42.2 % (38.7-73.9); Platelet Count 122 T/CUMM (130-400); Red Blood Count 3.88 MC/CUMM (3.8-5.5); Red Cell Distribution Width 14.2 % (9.3-17.3); White Blood Count 12.7 T/CUMM (4-12)
[2018-05-15 05:13] LABS: Potassium 3.5 MMOL/L (3.5-5.1)
[2018-05-15] MEDS: MEROPENEM 1,000 MG in SODIUM CHLORIDE 0.9% 100 ML IV SCH ×3 (05:22→21:42)
[2018-05-15] MEDS: INSULIN REGULAR 100 UNIT/ML SUBCUT SCH ×4 (05:33→23:08)
[2018-05-15] MEDS: SODIUM CHLORIDE 0.9% 1,000 ML IV SCH ×2 (06:02→19:24)
[2018-05-15] MEDS ORDERED: POTASSIUM CHLORIDE 20 MEQ TABLET PO ONE (08:44)
[2018-05-15] MEDS: FUROSEMIDE 40 MG/4 ML VIAL IV SCH ×2 (08:59→17:05)
[2018-05-15] MEDS: DUTASTERIDE 0.5 MG CAPSULE PO SCH (08:59)
[2018-05-15] MEDS: ASPIRIN EC 81 MG TABLET PO SCH (09:00)
[2018-05-15] MEDS: ALLOPURINOL 300 MG TABLET PO SCH (09:00)
[2018-05-15] MEDS: BRIMONIDINE 0.1% OPH SOLN 5 ML BOTTLE BOTH EYES SCH ×3 (09:00→21:42)
[2018-05-15] MEDS: ENOXAPARIN 40 MG/0.4 ML SYRINGE SUBCUT SCH (21:42)
[2018-05-16 04:16] LABS: ABG Base Excess 7.2 MMOL/L (-2.5-2.5); ABG Oxygen Saturation 96.7 % (95-100); ABG PCO2 48.6 MM HG (35-48); ABG PH 7.437 (7.35-7.45); ABG PO2 88.2 MM HG (80-95); ABG TCO2 28.4 MMOL/L (23-27); Allen Test Positive; Pt O2 Delivery Device Ventilator
[2018-05-16] MEDS: PROPOFOL 1,000 MG/100 ML BOTTLE IV SCH ×3 (05:05→21:55)
[2018-05-16] MEDS: INSULIN REGULAR 100 UNIT/ML SUBCUT SCH ×4 (06:04→23:53)
[2018-05-16 06:07] LABS: Calcium 8.4 MG/DL (8.5-10.1); Osmolality,Calculated 286.8 MOS/KG (273-304); Potassium 3.6 MMOL/L (3.5-5.1)
[2018-05-16] MEDS: MEROPENEM 1,000 MG in SODIUM CHLORIDE 0.9% 100 ML IV SCH (06:08)
[2018-05-16 07:14] LABS: Basophils % 0.3 % (0.0-0.8); Eosinophils # 0.3 10*3/uL (0.0-0.87); Eosinophils % 2.7 % (0.00-10.9); Hematocrit 37.4 VOL% (42.0-52.0); Hemoglobin 11.8 GM/DL (14.0-18.0); Immature Granulocytes % 0.6 %; Immature Granulocytes Absolute 0.07 #; Lymphocytes # 5.5 10*3/uL (1.4-4.0); Lymphocytes % 45.1 % (21.2-54.2); Mean Corpuscular HGB Conc 31.6 GM/DL (32-36); Mean Corpuscular Hemoglobin 30 PG (27-34); Mean Corpuscular Volume 94.9 FL (87-102); Mean Platelet Volume 12.2 FL (9.6-12.0); Monocytes # 1.1 10*3/uL (0.11-0.8); Monocytes % 8.9 % (1.7-12.7); Neutrophils # 5.2 10*3/uL (1.4-7.4); Neutrophils % 42.4 % (38.7-73.9); Platelet Count 126 T/CUMM (130-400); Red Blood Count 3.94 MC/CUMM (3.8-5.5); White Blood Count 12.1 T/CUMM (4-12)
[2018-05-16 07:44] LABS: Band Neutrophils 1 % (0-10); Eosinophils 7 % (0-10); Hypochromasia 1+; Lymphocytes 32 % (20-55); Platelet Estimate Decreased; Segmented Neutrophils 54 % (50-85); Total Cells Counted 100
[2018-05-16] MEDS: fentaNYL INJ 1,250 MCG in SODIUM CHLORIDE 0.9% 225 ML IV PRN ×2 (08:00→23:48)
[2018-05-16] MEDS: ASPIRIN EC 81 MG TABLET PO SCH (09:24)
[2018-05-16] MEDS: DUTASTERIDE 0.5 MG CAPSULE PO SCH (09:24)
[2018-05-16] MEDS: BRIMONIDINE 0.1% OPH SOLN 5 ML BOTTLE BOTH EYES SCH ×3 (09:24→22:11)
[2018-05-16] MEDS: ALLOPURINOL 300 MG TABLET PO SCH (09:24)
[2018-05-16] MEDS: FUROSEMIDE 40 MG/4 ML VIAL IV SCH ×2 (09:25→16:00)
[2018-05-16] MEDS: SODIUM CHLORIDE 0.9% 1,000 ML IV SCH ×2 (09:33→09:36)
[2018-05-16] MEDS ORDERED: POTASSIUM CHLORIDE 20 MEQ/15 ML UDCUP NG ONE (10:00)
[2018-05-16] MEDS ORDERED: hydrALAZINE 20 MG/1 ML VIAL IV PRN (15:38)
[2018-05-16] MEDS: CARVEDILOL 6.25 MG TABLET PO SCH (22:11)
[2018-05-16] MEDS: ENOXAPARIN 40 MG/0.4 ML SYRINGE SUBCUT SCH (22:12)
[2018-05-16] MEDS: SACUBITRIL/VALSARTAN 49-51 MG TABLET PO SCH (22:12)
[2018-05-17] MEDS: PROPOFOL 1,000 MG/100 ML BOTTLE IV SCH (01:15)
[2018-05-17 03:11] LABS: ABG Base Excess 8.1 MMOL/L (-2.5-2.5); ABG HCO3 31.9 MMOL/L (20-26); ABG Oxygen Saturation 99.6 % (95-100); ABG PCO2 53.5 MM HG (35-48); ABG PH 7.417 (7.35-7.45); ABG TCO2 30.2 MMOL/L (23-27); Allen Test Positive; Pt O2 Delivery Device Ventilator
[2018-05-17] MEDS: INSULIN REGULAR 100 UNIT/ML SUBCUT SCH ×3 (05:52→18:27)
[2018-05-17 06:39] LABS: Basophils # 0.1 10*3/uL (0.0-0.2); Basophils % 0.3 % (0.0-0.8); Eosinophils # 0.4 10*3/uL (0.0-0.87); Hematocrit 38.4 VOL% (42.0-52.0); Hemoglobin 11.7 GM/DL (14.0-18.0); Immature Granulocytes % 0.5 %; Immature Granulocytes Absolute 0.07 #; Lymphocytes # 4.4 10*3/uL (1.4-4.0); Lymphocytes % 30.7 % (21.2-54.2); Mean Corpuscular HGB Conc 30.5 GM/DL (32-36); Mean Corpuscular Hemoglobin 29 PG (27-34); Mean Corpuscular Volume 96.2 FL (87-102); Mean Platelet Volume 12.2 FL (9.6-12.0); Monocytes % 7.1 % (1.7-12.7); Neutrophils # 8.3 10*3/uL (1.4-7.4); Neutrophils % 58.4 % (38.7-73.9); Platelet Count 130 T/CUMM (130-400); Red Blood Count 3.99 MC/CUMM (3.8-5.5); Red Cell Distribution Width 14.1 % (9.3-17.3); White Blood Count 14.3 T/CUMM (4-12)
[2018-05-17 06:42] LABS: Calcium 8.3 MG/DL (8.5-10.1); Osmolality,Calculated 292.8 MOS/KG (273-304); Potassium 3.8 MMOL/L (3.5-5.1)
[2018-05-17] MEDS: SACUBITRIL/VALSARTAN 49-51 MG TABLET PO SCH ×2 (09:10→21:42)
[2018-05-17] MEDS: FUROSEMIDE 40 MG TABLET PO SCH (09:10)
[2018-05-17] MEDS: ASPIRIN EC 81 MG TABLET PO SCH (09:11)
[2018-05-17] MEDS: ALLOPURINOL 300 MG TABLET PO SCH (09:11)
[2018-05-17] MEDS: SPIRONOLACTONE 25 MG TABLET PO SCH (09:12)
[2018-05-17] MEDS: FAMOTIDINE 20 MG/2 ML VIAL IV SCH ×2 (09:12→21:43)
[2018-05-17] MEDS: LACTULOSE 20 GM/30 ML UDCUP NG SCH (09:12)
[2018-05-17] MEDS: DUTASTERIDE 0.5 MG CAPSULE PO SCH (09:12)
[2018-05-17] MEDS: CARVEDILOL 6.25 MG TABLET PO SCH ×2 (09:13→21:42)
[2018-05-17] MEDS: HALOPERIDOL 5 MG/ML AMP IV SCH ×2 (09:14→21:42)
[2018-05-17] MEDS: BRIMONIDINE 0.1% OPH SOLN 5 ML BOTTLE BOTH EYES SCH ×3 (09:24→21:42)
[2018-05-17] MEDS: DEXMEDETOMIDINE 200 MCG in SODIUM CHLORIDE 0.9% 48 ML IV PRN ×3 (09:49→17:23)
[2018-05-17] MEDS: FUROSEMIDE 40 MG/4 ML VIAL IV SCH (10:13)
[2018-05-17] MEDS: fentaNYL INJ 1,250 MCG in SODIUM CHLORIDE 0.9% 225 ML IV PRN (13:10)
[2018-05-17] MEDS: DEXMEDETOMIDINE 400 MCG in SODIUM CHLORIDE 0.9% 96 ML IV PRN (19:00)
[2018-05-17] MEDS: SODIUM CHLORIDE 0.9% 1,000 ML IV SCH (21:42)
[2018-05-17] MEDS: ENOXAPARIN 40 MG/0.4 ML SYRINGE SUBCUT SCH (21:43)
[2018-05-18] MEDS: INSULIN REGULAR 100 UNIT/ML SUBCUT SCH ×4 (00:13→18:28)
[2018-05-18] MEDS: fentaNYL INJ 1,250 MCG in SODIUM CHLORIDE 0.9% 225 ML IV PRN ×2 (01:16→12:14)
[2018-05-18] MEDS: DEXMEDETOMIDINE 400 MCG in SODIUM CHLORIDE 0.9% 96 ML IV PRN ×2 (03:17→19:50)
[2018-05-18 04:57] LABS: Basophils # 0.1 10*3/uL (0.0-0.2); Basophils % 0.4 % (0.0-0.8); Eosinophils # 0.4 10*3/uL (0.0-0.87); Hematocrit 40.7 VOL% (42.0-52.0); Hemoglobin 12.3 GM/DL (14.0-18.0); Immature Granulocytes % 0.4 %; Immature Granulocytes Absolute 0.05 #; Lymphocytes % 36.9 % (21.2-54.2); Mean Corpuscular HGB Conc 30.2 GM/DL (32-36); Mean Corpuscular Hemoglobin 29 PG (27-34); Mean Corpuscular Volume 95.8 FL (87-102); Mean Platelet Volume 12.3 FL (9.6-12.0); Monocytes # 1.1 10*3/uL (0.11-0.8); Monocytes % 8.1 % (1.7-12.7); Neutrophils # 6.9 10*3/uL (1.4-7.4); Neutrophils % 51.2 % (38.7-73.9); Platelet Count 118 T/CUMM (130-400); Red Blood Count 4.25 MC/CUMM (3.8-5.5); Red Cell Distribution Width 13.7 % (9.3-17.3); White Blood Count 13.5 T/CUMM (4-12)
[2018-05-18 05:06] LABS: Calcium 7.9 MG/DL (8.5-10.1); Osmolality,Calculated 289.7 MOS/KG (273-304); Potassium 3.9 MMOL/L (3.5-5.1)
[2018-05-18 05:19] LABS: ABG HCO3 28.8 MMOL/L (20-26); ABG Oxygen Saturation 95.8 % (95-100); ABG PCO2 56.8 MM HG (35-48); ABG PO2 83.9 MM HG (80-95); ABG TCO2 28.5 MMOL/L (23-27); Allen Test Positive; Pt O2 Delivery Device Ventilator
[2018-05-18 08:19] LABS: ABG Base Excess 5.1 MMOL/L (-2.5-2.5); ABG HCO3 28.9 MMOL/L (20-26); ABG Oxygen Saturation 93.6 % (95-100); ABG PCO2 59.2 MM HG (35-48); ABG PH 7.349 (7.35-7.45); ABG TCO2 28.9 MMOL/L (23-27)
[2018-05-18] MEDS: DUTASTERIDE 0.5 MG CAPSULE PO SCH (09:00)
[2018-05-18] MEDS: SPIRONOLACTONE 25 MG TABLET PO SCH (09:00)
[2018-05-18] MEDS: CARVEDILOL 6.25 MG TABLET PO SCH ×2 (09:00→22:15)
[2018-05-18] MEDS: ALLOPURINOL 300 MG TABLET PO SCH (09:00)
[2018-05-18] MEDS: LACTULOSE 20 GM/30 ML UDCUP NG SCH (09:00)
[2018-05-18] MEDS: ASPIRIN EC 81 MG TABLET PO SCH (09:01)
[2018-05-18] MEDS: FUROSEMIDE 40 MG TABLET PO SCH (09:01)
[2018-05-18] MEDS: BRIMONIDINE 0.1% OPH SOLN 5 ML BOTTLE BOTH EYES SCH ×3 (09:01→22:14)
[2018-05-18] MEDS: HALOPERIDOL 5 MG/ML AMP IV SCH ×2 (09:01→22:15)
[2018-05-18] MEDS: FAMOTIDINE 20 MG/2 ML VIAL IV SCH ×2 (09:01→22:16)
[2018-05-18] MEDS: SACUBITRIL/VALSARTAN 49-51 MG TABLET PO SCH ×2 (09:01→22:15)
[2018-05-18] MEDS: SODIUM CHLORIDE 0.9% 1,000 ML IV SCH (17:46)
[2018-05-18] MEDS: METOCLOPRAMIDE 10 MG/2 ML VIAL IV SCH ×2 (17:56→22:16)
[2018-05-18] MEDS ORDERED: METOCLOPRAMIDE 10 MG/2 ML VIAL IV SCH (22:00)
[2018-05-18] MEDS: ENOXAPARIN 40 MG/0.4 ML SYRINGE SUBCUT SCH (22:15)
[2018-05-19] MEDS: fentaNYL INJ 1,250 MCG in SODIUM CHLORIDE 0.9% 225 ML IV PRN (00:14)
[2018-05-19] MEDS: INSULIN REGULAR 100 UNIT/ML SUBCUT SCH ×4 (00:19→17:30)
[2018-05-19] MEDS: DEXMEDETOMIDINE 400 MCG in SODIUM CHLORIDE 0.9% 96 ML IV PRN ×2 (02:36→09:47)
[2018-05-19 04:30] LABS: Basophils # 0.1 10*3/uL (0.0-0.2); Basophils % 0.5 % (0.0-0.8); Eosinophils # 0.3 10*3/uL (0.0-0.87); Eosinophils % 2.2 % (0.00-10.9); Hematocrit 42.2 VOL% (42.0-52.0); Hemoglobin 12.8 GM/DL (14.0-18.0); Immature Granulocytes % 0.5 %; Immature Granulocytes Absolute 0.08 #; Lymphocytes # 7.5 10*3/uL (1.4-4.0); Lymphocytes % 49.5 % (21.2-54.2); Mean Corpuscular HGB Conc 30.3 GM/DL (32-36); Mean Corpuscular Hemoglobin 29 PG (27-34); Mean Corpuscular Volume 94.4 FL (87-102); Mean Platelet Volume 12.5 FL (9.6-12.0); Monocytes # 0.9 10*3/uL (0.11-0.8); Monocytes % 6.2 % (1.7-12.7); Neutrophils # 6.2 10*3/uL (1.4-7.4); Neutrophils % 41.1 % (38.7-73.9); Red Blood Count 4.47 MC/CUMM (3.8-5.5); Red Cell Distribution Width 13.2 % (9.3-17.3); White Blood Count 15.1 T/CUMM (4-12)
[2018-05-19 04:37] LABS: Platelet Count 92 T/CUMM (130-400)
[2018-05-19 04:50] LABS: ABG Base Excess 4.7 MMOL/L (-2.5-2.5); ABG HCO3 30.9 MMOL/L (20-26); ABG Oxygen Saturation 94.6 % (95-100); ABG PCO2 52.4 MM HG (35-48); ABG PH 7.388 (7.35-7.45); ABG TCO2 32.5 MMOL/L (23-27); Allen Test Positive; Pt O2 Delivery Device Ventilator
[2018-05-19 05:11] LABS: Calcium 8.3 MG/DL (8.5-10.1); Osmolality,Calculated 284.3 MOS/KG (273-304); Potassium 4.4 MMOL/L (3.5-5.1)
[2018-05-19 05:13] LABS: Eosinophils 3 % (0-10); Lymphocytes 37 % (20-55); Platelet Estimate Decreased; Segmented Neutrophils 56 % (50-85); Total Cells Counted 100
[2018-05-19 05:14] LABS: Polychromasia Few
[2018-05-19] MEDS: METOCLOPRAMIDE 10 MG/2 ML VIAL IV SCH ×3 (05:46→21:55)
[2018-05-19] MEDS: CIPROFLOXACIN INJ 400 MG in PREMIX 1 EACH IV SCH ×2 (08:53→21:35)
[2018-05-19] MEDS: metroNIDAZOLE INJ 500 MG in PREMIX 1 EACH IV SCH ×2 (08:56→17:30)
[2018-05-19] MEDS: HALOPERIDOL 5 MG/ML AMP IV SCH ×3 (09:36→21:55)
[2018-05-19] MEDS: LACTULOSE 20 GM/30 ML UDCUP NG SCH (09:37)
[2018-05-19] MEDS: SACUBITRIL/VALSARTAN 49-51 MG TABLET PO SCH ×2 (09:38→21:37)
[2018-05-19] MEDS: FAMOTIDINE 20 MG/2 ML VIAL IV SCH ×2 (09:38→21:36)
[2018-05-19] MEDS: FUROSEMIDE 40 MG TABLET PO SCH (09:38)
[2018-05-19] MEDS: CARVEDILOL 6.25 MG TABLET PO SCH ×2 (09:38→21:37)
[2018-05-19] MEDS: ASPIRIN EC 81 MG TABLET PO SCH (09:38)
[2018-05-19] MEDS: ALLOPURINOL 300 MG TABLET PO SCH (09:38)
[2018-05-19] MEDS: DUTASTERIDE 0.5 MG CAPSULE PO SCH (09:38)
[2018-05-19] MEDS: SPIRONOLACTONE 25 MG TABLET PO SCH (09:38)
[2018-05-19] MEDS: BRIMONIDINE 0.1% OPH SOLN 5 ML BOTTLE BOTH EYES SCH ×3 (09:44→21:36)
[2018-05-19 10:00] LABS: ABG Base Excess 4.2 MMOL/L (-2.5-2.5); ABG HCO3 28.1 MMOL/L (20-26); ABG Oxygen Saturation 96.5 % (95-100); ABG PCO2 49.9 MM HG (35-48); ABG PO2 87.4 MM HG (80-95); ABG TCO2 26.6 MMOL/L (23-27); Allen Test Positive; Pt O2 Delivery Device Ventilator
[2018-05-19] MEDS: ONDANSETRON 4 MG/2 ML VIAL IV PRN ×2 (10:56→22:51)
[2018-05-19 12:35] LABS: ABG Base Excess 3.7 MMOL/L (-2.5-2.5); ABG HCO3 27.6 MMOL/L (20-26); ABG PCO2 55.5 MM HG (35-48); ABG PH 7.352 (7.35-7.45); ABG PO2 72.4 MM HG (80-95); ABG TCO2 27.3 MMOL/L (23-27)
[2018-05-19] MEDS: SODIUM CHLORIDE 0.9% 1,000 ML IV SCH (12:44)
[2018-05-19 19:45] LABS: Hematocrit 41.5 VOL% (42.0-52.0); Hemoglobin 12.7 GM/DL (14.0-18.0)
[2018-05-19] MEDS: ENOXAPARIN 40 MG/0.4 ML SYRINGE SUBCUT SCH (20:18)
[2018-05-19] MEDS: PANTOPRAZOLE 40 MG VIAL IV SCH (21:35)
[2018-05-20] MEDS: metroNIDAZOLE INJ 500 MG in PREMIX 1 EACH IV SCH ×3 (00:10→17:20)
[2018-05-20] MEDS: INSULIN REGULAR 100 UNIT/ML SUBCUT SCH ×4 (00:10→18:20)
[2018-05-20 00:43] LABS: Hematocrit 35.9 VOL% (42.0-52.0); Hemoglobin 10.9 GM/DL (14.0-18.0)
[2018-05-20] MEDS: SODIUM CHLORIDE 0.9% 1,000 ML IV SCH ×2 (02:09→17:22)
[2018-05-20 03:47] LABS: Basophils # 0.1 10*3/uL (0.0-0.2); Basophils % 0.3 % (0.0-0.8); Eosinophils % 0.1 % (0.00-10.9); Hematocrit 33.1 VOL% (42.0-52.0); Hemoglobin 10.2 GM/DL (14.0-18.0); Immature Granulocytes % 0.6 %; Immature Granulocytes Absolute 0.15 #; Lymphocytes # 12.7 10*3/uL (1.4-4.0); Lymphocytes % 49.8 % (21.2-54.2); Mean Corpuscular HGB Conc 30.8 GM/DL (32-36); Mean Corpuscular Hemoglobin 30 PG (27-34); Mean Corpuscular Volume 95.7 FL (87-102); Mean Platelet Volume 11.3 FL (9.6-12.0); Monocytes % 4.1 % (1.7-12.7); Neutrophils # 11.5 10*3/uL (1.4-7.4); Neutrophils % 45.1 % (38.7-73.9); Platelet Count 169 T/CUMM (130-400); Red Blood Count 3.46 MC/CUMM (3.8-5.5); Red Cell Distribution Width 13.2 % (9.3-17.3); White Blood Count 25.4 T/CUMM (4-12)
[2018-05-20 04:16] LABS: Band Neutrophils 2 % (0-10); Eosinophils 2 % (0-10); Lymphocytes 48 % (20-55); Segmented Neutrophils 43 % (50-85); Total Cells Counted 100
[2018-05-20 04:17] LABS: Anisocytosis 1+; Macrocytosis 1+; Platelet Estimate Normal
[2018-05-20 04:21] LABS: Calcium 8.3 MG/DL (8.5-10.1); Osmolality,Calculated 289.1 MOS/KG (273-304); Potassium 3.6 MMOL/L (3.5-5.1)
[2018-05-20] MEDS: METOCLOPRAMIDE 10 MG/2 ML VIAL IV SCH (05:46)
[2018-05-20 08:04] LABS: Hematocrit 32.7 VOL% (42.0-52.0); Hemoglobin 9.8 GM/DL (14.0-18.0)
[2018-05-20] MEDS: CIPROFLOXACIN INJ 400 MG in PREMIX 1 EACH IV SCH ×2 (08:56→20:10)
[2018-05-20] MEDS ORDERED: PHENOL 1.4% THROAT SPRAY 177 ML BOTTLE PO PRN (09:00)
[2018-05-20] MEDS: BRIMONIDINE 0.1% OPH SOLN 5 ML BOTTLE BOTH EYES SCH ×3 (09:21→21:30)
[2018-05-20] MEDS: HALOPERIDOL 5 MG/ML AMP IV SCH ×2 (09:22→22:57)
[2018-05-20] MEDS: POTASSIUM CHLORIDE 20 MEQ/15 ML UDCUP PER TUBE PRN ×2 (09:22→12:07)
[2018-05-20] MEDS: PANTOPRAZOLE 40 MG VIAL IV SCH ×2 (09:22→21:30)
[2018-05-20] MEDS: FAMOTIDINE 20 MG/2 ML VIAL IV SCH ×2 (09:22→21:30)
[2018-05-20] MEDS: DUTASTERIDE 0.5 MG CAPSULE PO SCH (09:23)
[2018-05-20] MEDS: SPIRONOLACTONE 25 MG TABLET PO SCH (09:23)
[2018-05-20] MEDS: FUROSEMIDE 40 MG TABLET PO SCH (09:23)
[2018-05-20] MEDS: ALLOPURINOL 300 MG TABLET PO SCH (09:23)
[2018-05-20] MEDS: CARVEDILOL 6.25 MG TABLET PO SCH ×2 (09:23→21:30)
[2018-05-20] MEDS: SACUBITRIL/VALSARTAN 49-51 MG TABLET PO SCH ×2 (09:23→21:30)
[2018-05-20] MEDS: ASPIRIN EC 81 MG TABLET PO SCH (09:24)
[2018-05-20] MEDS: LACTULOSE 20 GM/30 ML UDCUP NG SCH (09:24)
[2018-05-20 12:35] LABS: Hematocrit 30.4 VOL% (42.0-52.0); Hemoglobin 9.2 GM/DL (14.0-18.0)
[2018-05-20 16:22] LABS: Hematocrit 27.7 VOL% (42.0-52.0); Hemoglobin 8.7 GM/DL (14.0-18.0)
[2018-05-20] MEDS ORDERED: SODIUM CHLORIDE 0.9% 1,000 ML IV PRN (16:35)
[2018-05-20 21:43] LABS: Hematocrit 29.6 VOL% (42.0-52.0); Hemoglobin 9.3 GM/DL (14.0-18.0)
[2018-05-21] MEDS: INSULIN REGULAR 100 UNIT/ML SUBCUT SCH ×4 (00:08→18:03)
[2018-05-21] MEDS: metroNIDAZOLE INJ 500 MG in PREMIX 1 EACH IV SCH ×3 (00:08→16:51)
[2018-05-21 02:07] LABS: Basophils # 0.1 10*3/uL (0.0-0.2); Basophils % 0.3 % (0.0-0.8); Eosinophils # 0.1 10*3/uL (0.0-0.87); Eosinophils % 0.7 % (0.00-10.9); Hematocrit 29.4 VOL% (42.0-52.0); Immature Granulocytes Absolute 0.18 #; Lymphocytes # 8.3 10*3/uL (1.4-4.0); Lymphocytes % 46.2 % (21.2-54.2); Mean Corpuscular HGB Conc 30.6 GM/DL (32-36); Mean Corpuscular Hemoglobin 29 PG (27-34); Mean Corpuscular Volume 95.8 FL (87-102); Mean Platelet Volume 12.1 FL (9.6-12.0); Monocytes # 1.2 10*3/uL (0.11-0.8); Monocytes % 6.7 % (1.7-12.7); Neutrophils # 8.1 10*3/uL (1.4-7.4); Neutrophils % 45.1 % (38.7-73.9); Platelet Count 164 T/CUMM (130-400); Red Blood Count 3.07 MC/CUMM (3.8-5.5); Red Cell Distribution Width 13.4 % (9.3-17.3); White Blood Count 17.9 T/CUMM (4-12)
[2018-05-21 08:46] LABS: Hematocrit 29.4 VOL% (42.0-52.0)
[2018-05-21] MEDS: CIPROFLOXACIN INJ 400 MG in PREMIX 1 EACH IV SCH ×2 (09:01→21:42)
[2018-05-21] MEDS: PANTOPRAZOLE 40 MG VIAL IV SCH ×2 (10:16→22:01)
[2018-05-21] MEDS: SACUBITRIL/VALSARTAN 49-51 MG TABLET PO SCH ×2 (10:16→21:50)
[2018-05-21] MEDS: FAMOTIDINE 20 MG/2 ML VIAL IV SCH ×2 (10:16→21:58)
[2018-05-21] MEDS: CARVEDILOL 6.25 MG TABLET PO SCH ×2 (10:17→21:50)
[2018-05-21] MEDS: FUROSEMIDE 40 MG TABLET PO SCH (10:17)
[2018-05-21] MEDS: SPIRONOLACTONE 25 MG TABLET PO SCH (10:18)
[2018-05-21] MEDS: ALLOPURINOL 300 MG TABLET PO SCH (10:18)
[2018-05-21] MEDS: DUTASTERIDE 0.5 MG CAPSULE PO SCH (10:18)
[2018-05-21] MEDS: BRIMONIDINE 0.1% OPH SOLN 5 ML BOTTLE BOTH EYES SCH ×3 (10:19→21:49)
[2018-05-21] MEDS: HALOPERIDOL 5 MG/ML AMP IV SCH ×2 (10:19→21:56)
[2018-05-21] MEDS: LACTULOSE 20 GM/30 ML UDCUP NG SCH (10:19)
[2018-05-21] MEDS: ASPIRIN EC 81 MG TABLET PO SCH (10:22)
[2018-05-21 12:04] LABS: Hematocrit 28.5 VOL% (42.0-52.0)
[2018-05-21] MEDS: SODIUM CHLORIDE 0.9% 1,000 ML IV SCH (12:38)
[2018-05-21 19:44] LABS: Hematocrit 29.9 VOL% (42.0-52.0); Hemoglobin 9.2 GM/DL (14.0-18.0)
[2018-05-21] MEDS: diphenhydrAMINE 25 MG/10 ML UDCUP PO PRN (22:19)
[2018-05-21 23:57] LABS: Hemoglobin 9.2 GM/DL (14.0-18.0)
[2018-05-22] MEDS: metroNIDAZOLE INJ 500 MG in PREMIX 1 EACH IV SCH ×4 (01:07→23:30)
[2018-05-22] MEDS: INSULIN REGULAR 100 UNIT/ML SUBCUT SCH ×5 (01:07→23:30)
[2018-05-22] MEDS: ALBUTEROL 2.5 MG/3 ML NEB RESP TX PRN ×2 (02:56→08:25)
[2018-05-22 05:43] LABS: Hematocrit 28.9 VOL% (42.0-52.0)
[2018-05-22 06:01] LABS: Calcium 7.9 MG/DL (8.5-10.1); Osmolality,Calculated 282.1 MOS/KG (273-304); Potassium 3.6 MMOL/L (3.5-5.1)
[2018-05-22 06:05] LABS: Prealbumin 12.7 MG/DL (20-40)
[2018-05-22] MEDS ORDERED: ACETAMINOPHEN 325 MG TABLET PO PRN (09:01)
[2018-05-22] MEDS ORDERED: CARVEDILOL 12.5 MG TABLET PO SCH (09:10)
[2018-05-22] MEDS: FUROSEMIDE 40 MG TABLET PO SCH (09:58)
[2018-05-22] MEDS: CARVEDILOL 25 MG TABLET PO SCH ×2 (09:58→16:52)
[2018-05-22] MEDS: DUTASTERIDE 0.5 MG CAPSULE PO SCH (09:58)
[2018-05-22] MEDS: ASPIRIN EC 81 MG TABLET PO SCH (09:59)
[2018-05-22] MEDS: SACUBITRIL/VALSARTAN 49-51 MG TABLET PO SCH ×2 (09:59→20:36)
[2018-05-22] MEDS: SPIRONOLACTONE 25 MG TABLET PO SCH (09:59)
[2018-05-22] MEDS: ALLOPURINOL 300 MG TABLET PO SCH (09:59)
[2018-05-22] MEDS: BRIMONIDINE 0.1% OPH SOLN 5 ML BOTTLE BOTH EYES SCH ×3 (10:00→20:39)
[2018-05-22] MEDS: PANTOPRAZOLE 40 MG VIAL IV SCH (10:00)
[2018-05-22] MEDS: CIPROFLOXACIN INJ 400 MG in PREMIX 1 EACH IV SCH ×2 (10:00→20:40)
[2018-05-22] MEDS: LACTULOSE 20 GM/30 ML UDCUP NG SCH (10:00)
[2018-05-22] MEDS: FAMOTIDINE 20 MG/2 ML VIAL IV SCH (10:01)
[2018-05-22] MEDS ORDERED: HALOPERIDOL 1 MG TABLET PO SCH (11:00)
[2018-05-22] MEDS: HALOPERIDOL 5 MG/ML AMP IV SCH (11:21)
[2018-05-22] MEDS: CARVEDILOL 6.25 MG TABLET PO SCH (11:22)
[2018-05-22] MEDS: SODIUM CHLORIDE 0.9% 1,000 ML IV SCH (11:26)
[2018-05-22] MEDS ORDERED: POTASSIUM PHOSPHATE IV ONE (11:30)
[2018-05-22] MEDS ORDERED: SODIUM CHLORIDE 0.9% IV ONE (11:30)
[2018-05-22] MEDS ORDERED: risperiDONE 0.5 MG TABLET PO PRN (14:09)
[2018-05-22] MEDS: ALBUTEROL/IPRATROPIUM 3 ML NEB RESP TX SCH ×2 (16:00→19:09)
[2018-05-22] MEDS: TAMSULOSIN 0.4 MG CAPSULE PO SCH (16:52)
[2018-05-22] MEDS: diphenhydrAMINE 25 MG/10 ML UDCUP PO PRN (20:37)
[2018-05-22] MEDS: MELATONIN 3 MG TABLET PO SCH (20:37)
[2018-05-22] MEDS: PANTOPRAZOLE 40 MG TABLET PO SCH (20:37)
[2018-05-22 21:41] LABS: Apearance,Urine CLEAR (Clear); Bilirubin,Urine Negative (Negative); Blood, Urine Large mg/dL (Negative); Glucose,Urine (UA) Negative (Negative); Ketones,Urine Negative (Negative); Nitrite,Urine Negative (Negative); Protein,Urine Negative; RBC,Urine 111 /HPF (0-4); Urine Color Yellow (Yellow); Urine Specific Gravity 1.029 (1.001-1.035); WBC,Urine <1 /HPF (0-6)
[2018-05-23] MEDS: ZIPRASIDONE 20 MG/1 ML VIAL IM PRN ×4 (01:27→22:42)
[2018-05-23 05:19] LABS: Basophils # 0.1 10*3/uL (0.0-0.2); Basophils % 0.5 % (0.0-0.8); Eosinophils # 0.4 10*3/uL (0.0-0.87); Eosinophils % 2.8 % (0.00-10.9); Hematocrit 28.8 VOL% (42.0-52.0); Hemoglobin 8.8 GM/DL (14.0-18.0); Immature Granulocytes % 1.3 %; Immature Granulocytes Absolute 0.17 #; Lymphocytes # 6.2 10*3/uL (1.4-4.0); Lymphocytes % 47.3 % (21.2-54.2); Mean Corpuscular HGB Conc 30.6 GM/DL (32-36); Mean Corpuscular Hemoglobin 29 PG (27-34); Mean Corpuscular Volume 94.4 FL (87-102); Mean Platelet Volume 11.7 FL (9.6-12.0); Monocytes # 1.2 10*3/uL (0.11-0.8); Monocytes % 9.2 % (1.7-12.7); NRBC # 0.02 10*3/uL; Neutrophils # 5.2 10*3/uL (1.4-7.4); Neutrophils % 38.9 % (38.7-73.9); Platelet Count 198 T/CUMM (130-400); Red Blood Count 3.05 MC/CUMM (3.8-5.5); Red Cell Distribution Width 13.9 % (9.3-17.3); White Blood Count 13.2 T/CUMM (4-12)
[2018-05-23 05:45] LABS: Calcium 8.4 MG/DL (8.5-10.1); Osmolality,Calculated 290.6 MOS/KG (273-304); Potassium 3.4 MMOL/L (3.5-5.1); Risk Ratio 2.63; VLDL CHOLESTEROL 19.4 MG/DL
[2018-05-23] MEDS: INSULIN REGULAR 100 UNIT/ML SUBCUT SCH ×4 (06:14→23:46)
[2018-05-23] MEDS: ALBUTEROL/IPRATROPIUM 3 ML NEB RESP TX SCH ×4 (07:31→19:27)
[2018-05-23] MEDS: metroNIDAZOLE INJ 500 MG in PREMIX 1 EACH IV SCH (10:12)
[2018-05-23] MEDS: CIPROFLOXACIN INJ 400 MG in PREMIX 1 EACH IV SCH (10:13)
[2018-05-23] MEDS: SACUBITRIL/VALSARTAN 49-51 MG TABLET PO SCH ×2 (10:14→20:17)
[2018-05-23] MEDS: LACTULOSE 20 GM/30 ML UDCUP NG SCH (10:14)
[2018-05-23] MEDS: FUROSEMIDE 40 MG TABLET PO SCH (10:15)
[2018-05-23] MEDS: CARVEDILOL 25 MG TABLET PO SCH ×2 (10:15→16:25)
[2018-05-23] MEDS: ALLOPURINOL 300 MG TABLET PO SCH (10:15)
[2018-05-23] MEDS: PANTOPRAZOLE 40 MG TABLET PO SCH ×2 (10:15→20:16)
[2018-05-23] MEDS: ASPIRIN EC 81 MG TABLET PO SCH (10:15)
[2018-05-23] MEDS: TAMSULOSIN 0.4 MG CAPSULE PO SCH (10:15)
[2018-05-23] MEDS: SPIRONOLACTONE 25 MG TABLET PO SCH (10:15)
[2018-05-23] MEDS: BRIMONIDINE 0.1% OPH SOLN 5 ML BOTTLE BOTH EYES SCH ×3 (10:17→20:15)
[2018-05-23] MEDS: DUTASTERIDE 0.5 MG CAPSULE PO SCH (10:19)
[2018-05-23] MEDS ORDERED: POTASSIUM CHLORIDE 20 MEQ TABLET PO ONE (12:15)
[2018-05-23] MEDS ORDERED: POTASSIUM CHLORIDE 20 MEQ TABLET PO SCH (12:30)
[2018-05-23] MEDS: SODIUM CHLORIDE 0.9% 1,000 ML IV SCH (16:23)
[2018-05-23] MEDS: MELATONIN 3 MG TABLET PO SCH (20:16)
[2018-05-23] MEDS ORDERED: CIPROFLOXACIN 500 MG TABLET PO SCH (21:00)
[2018-05-23] MEDS ORDERED: QUEtiapine 25 MG TABLET PO SCH (21:00)
[2018-05-24 05:34] LABS: Basophils # 0.1 10*3/uL (0.0-0.2); Basophils % 0.4 % (0.0-0.8); Eosinophils # 0.5 10*3/uL (0.0-0.87); Eosinophils % 3.4 % (0.00-10.9); Hematocrit 26.4 VOL% (42.0-52.0); Hemoglobin 8.1 GM/DL (14.0-18.0); Immature Granulocytes % 1.1 %; Immature Granulocytes Absolute 0.15 #; Lymphocytes % 52.6 % (21.2-54.2); Mean Corpuscular HGB Conc 30.7 GM/DL (32-36); Mean Corpuscular Hemoglobin 29 PG (27-34); Mean Platelet Volume 11.8 FL (9.6-12.0); Monocytes # 1.1 10*3/uL (0.11-0.8); Monocytes % 8.2 % (1.7-12.7); Neutrophils # 4.5 10*3/uL (1.4-7.4); Neutrophils % 34.3 % (38.7-73.9); Platelet Count 210 T/CUMM (130-400); Red Blood Count 2.78 MC/CUMM (3.8-5.5); Red Cell Distribution Width 14.3 % (9.3-17.3); White Blood Count 13.3 T/CUMM (4-12)
[2018-05-24 05:48] LABS: Calcium 8.3 MG/DL (8.5-10.1); Osmolality,Calculated 286.1 MOS/KG (273-304); Potassium 3.9 MMOL/L (3.5-5.1)
[2018-05-24 06:06] LABS: Eosinophils 4 % (0-10); Lymphocytes 41 % (20-55); Segmented Neutrophils 46 % (50-85); Total Cells Counted 100
[2018-05-24 06:07] LABS: Platelet Estimate Normal
[2018-05-24 06:08] LABS: Atypical Lymphocytes Few; Hypochromasia 1+; Reactive Lymphocytes 1+
[2018-05-24] MEDS: INSULIN REGULAR 100 UNIT/ML SUBCUT SCH ×3 (06:13→17:55)
[2018-05-24] MEDS: ZIPRASIDONE 20 MG/1 ML VIAL IM PRN (07:44)
[2018-05-24] MEDS: ALBUTEROL/IPRATROPIUM 3 ML NEB RESP TX SCH ×4 (07:58→19:31)
[2018-05-24] MEDS: ASPIRIN EC 81 MG TABLET PO SCH (08:45)
[2018-05-24] MEDS: LACTULOSE 20 GM/30 ML UDCUP NG SCH (08:45)
[2018-05-24] MEDS: TAMSULOSIN 0.4 MG CAPSULE PO SCH (08:51)
[2018-05-24] MEDS: CARVEDILOL 25 MG TABLET PO SCH ×2 (08:51→17:21)
[2018-05-24] MEDS: ALLOPURINOL 300 MG TABLET PO SCH (08:52)
[2018-05-24] MEDS: DUTASTERIDE 0.5 MG CAPSULE PO SCH (08:52)
[2018-05-24] MEDS: PANTOPRAZOLE 40 MG TABLET PO SCH ×2 (08:53→20:35)
[2018-05-24] MEDS: FUROSEMIDE 40 MG TABLET PO SCH (08:53)
[2018-05-24] MEDS: SPIRONOLACTONE 25 MG TABLET PO SCH (08:54)
[2018-05-24] MEDS: SACUBITRIL/VALSARTAN 49-51 MG TABLET PO SCH ×2 (08:54→20:35)
[2018-05-24] MEDS: BRIMONIDINE 0.1% OPH SOLN 5 ML BOTTLE BOTH EYES SCH ×3 (09:03→20:36)
[2018-05-24] MEDS ORDERED: LIDOCAINE 2% TOP JELLY 20 ML VIAL INTRAURETH ONE (13:12)
[2018-05-24] MEDS ORDERED: IBUPROFEN 200 MG TABLET PO PRN (13:48)
[2018-05-24] MEDS ORDERED: TEMAZEPAM 15 MG CAPSULE PO PRN (14:00)
[2018-05-24] MEDS ORDERED: KETAMINE 500 MG/10 ML VIAL ONE (14:07)
[2018-05-24] MEDS ORDERED: ONDANSETRON 4 MG/2 ML VIAL ONE (14:07)
[2018-05-24 14:27] LABS: Glucose,CSF 99 MG/DL (40-70)
[2018-05-24 14:37] LABS: Appearance,CSF Clear; Lymphocytes,CSF 73 %; Monocytes,CSF 20 %; Neutrophils,CSF 7 %; Red Blood Cell,CSF 55 C/CUMM; White Blood Cell,CSF 8 C/CUMM
[2018-05-24] MEDS: GABAPENTIN 300 MG CAPSULE PO SCH ×2 (15:04→20:35)
[2018-05-24] MEDS ORDERED: IPRATROPIUM/ALBUTEROL INHALER INH SCH (17:00)
[2018-05-24] MEDS ORDERED: CARVEDILOL 12.5 MG TABLET PO SCH (17:00)
[2018-05-24] MEDS: metFORMIN 500 MG TABLET PO SCH (17:26)
[2018-05-24] MEDS: THEOPHYLLINE ER 300 MG TABLET PO SCH (17:26)
[2018-05-24] MEDS ORDERED: QUEtiapine 25 MG TABLET PO SCH (19:30)
[2018-05-24] MEDS ORDERED: OXYBUTYNIN 5 MG TABLET PO ONE (19:30)
[2018-05-24] MEDS: MELATONIN 3 MG TABLET PO SCH (20:34)
[2018-05-24] MEDS: SIMVASTATIN 40 MG TABLET PO SCH (20:35)
[2018-05-24] MEDS: FLUTICASONE 50 MCG NASAL SPRAY 16 GM BOTTLE BOTH NARES SCH (20:36)
[2018-05-25] MEDS: INSULIN REGULAR 100 UNIT/ML SUBCUT SCH ×4 (01:09→17:26)
[2018-05-25] MEDS: ALBUTEROL/IPRATROPIUM 3 ML NEB RESP TX SCH ×4 (07:19→19:29)
[2018-05-25] MEDS ORDERED: traZODone 50 MG TABLET PO SCH (09:00)
[2018-05-25] MEDS ORDERED: PANTOPRAZOLE 40 MG TABLET PO SCH (09:00)
[2018-05-25] MEDS ORDERED: LISINOPRIL 5 MG TABLET PO SCH (09:00)
[2018-05-25] MEDS ORDERED: GLIMEPIRIDE 4 MG TABLET PO SCH (09:00)
[2018-05-25] MEDS ORDERED: FUROSEMIDE 40 MG TABLET PO SCH (09:00)
[2018-05-25] MEDS: SACUBITRIL/VALSARTAN 49-51 MG TABLET PO SCH (09:33)
[2018-05-25] MEDS: metFORMIN 500 MG TABLET PO SCH ×2 (09:34→17:31)
[2018-05-25] MEDS: PANTOPRAZOLE 40 MG TABLET PO SCH ×2 (09:34→21:36)
[2018-05-25] MEDS: SPIRONOLACTONE 25 MG TABLET PO SCH (09:34)
[2018-05-25] MEDS: MULTIVITAMIN (CENTRUM) TABLET PO SCH (09:34)
[2018-05-25] MEDS: TAMSULOSIN 0.4 MG CAPSULE PO SCH (09:34)
[2018-05-25] MEDS: GABAPENTIN 300 MG CAPSULE PO SCH (09:35)
[2018-05-25] MEDS: ALLOPURINOL 300 MG TABLET PO SCH (09:35)
[2018-05-25] MEDS: DUTASTERIDE 0.5 MG CAPSULE PO SCH (09:35)
[2018-05-25] MEDS: FUROSEMIDE 40 MG TABLET PO SCH (09:35)
[2018-05-25] MEDS: THEOPHYLLINE ER 300 MG TABLET PO SCH ×2 (09:35→17:42)
[2018-05-25] MEDS: CARVEDILOL 25 MG TABLET PO SCH (09:35)
[2018-05-25] MEDS: LACTULOSE 20 GM/30 ML UDCUP NG SCH (09:36)
[2018-05-25] MEDS: ASPIRIN EC 81 MG TABLET PO SCH (09:36)
[2018-05-25] MEDS: BRIMONIDINE 0.1% OPH SOLN 5 ML BOTTLE BOTH EYES SCH ×3 (09:36→21:36)
[2018-05-25 10:00] LABS: Basophils # 0.1 10*3/uL (0.0-0.2); Basophils % 0.3 % (0.0-0.8); Eosinophils # 0.5 10*3/uL (0.0-0.87); Eosinophils % 2.5 % (0.00-10.9); Hematocrit 27.9 VOL% (42.0-52.0); Hemoglobin 8.5 GM/DL (14.0-18.0); Immature Granulocytes % 0.9 %; Immature Granulocytes Absolute 0.18 #; Lymphocytes % 34.3 % (21.2-54.2); Mean Corpuscular HGB Conc 30.5 GM/DL (32-36); Mean Corpuscular Hemoglobin 30 PG (27-34); Mean Corpuscular Volume 97.2 FL (87-102); Mean Platelet Volume 11.1 FL (9.6-12.0); Monocytes # 1.4 10*3/uL (0.11-0.8); Monocytes % 6.7 % (1.7-12.7); Neutrophils # 11.2 10*3/uL (1.4-7.4); Neutrophils % 55.3 % (38.7-73.9); Platelet Count 243 T/CUMM (130-400); Red Blood Count 2.87 MC/CUMM (3.8-5.5); Red Cell Distribution Width 14.6 % (9.3-17.3); White Blood Count 20.3 T/CUMM (4-12)
[2018-05-25 10:21] LABS: Eosinophils 1 % (0-10); Hypochromasia 1+; Lymphocytes 28 % (20-55); Ovalocytes Slight; Platelet Estimate Adequate; Segmented Neutrophils 68 % (50-85); Total Cells Counted 100
[2018-05-25 10:25] LABS: Calcium 8.2 MG/DL (8.5-10.1)
[2018-05-25] MEDS ORDERED: SODIUM CHLORIDE 0.9% 500 ML IV ONE ×2 (12:08→16:54)
[2018-05-25 13:17] LABS: Apearance,Urine Slightly Hazy (Clear); Bilirubin,Urine Negative (Negative); Blood, Urine Large mg/dL (Negative); Glucose,Urine (UA) Negative (Negative); Ketones,Urine Negative (Negative); Nitrite,Urine Negative (Negative); Protein,Urine 100 MG/DL; RBC,Urine 2693 /HPF (0-4); Urine Color Red (Yellow); Urine Specific Gravity 1.006 (1.001-1.035); Urine Urobilinogen < 2.0 EU/DL (0.2-1.0)
[2018-05-25] MEDS ORDERED: HYDROCORTISONE 100 MG VIAL IV ONE (16:55)
[2018-05-25] MEDS: SODIUM CHLORIDE 0.9% 1,000 ML IV SCH (18:48)
[2018-05-25] MEDS: VANCOMYCIN INJ 1,250 MG in SODIUM CHLORIDE 0.9% 250 ML IV SCH (21:35)
[2018-05-25] MEDS: MELATONIN 3 MG TABLET PO SCH (21:36)
[2018-05-25] MEDS: SIMVASTATIN 40 MG TABLET PO SCH (21:36)
[2018-05-25] MEDS: FLUTICASONE 50 MCG NASAL SPRAY 16 GM BOTTLE BOTH NARES SCH (21:37)
[2018-05-26] MEDS: INSULIN REGULAR 100 UNIT/ML SUBCUT SCH ×4 (00:54→17:59)
[2018-05-26 05:00] LABS: Basophils % 0.2 % (0.0-0.8); Hematocrit 26.1 VOL% (42.0-52.0); Hemoglobin 7.9 GM/DL (14.0-18.0); Immature Granulocytes % 1.1 %; Immature Granulocytes Absolute 0.25 #; Lymphocytes % 43.1 % (21.2-54.2); Mean Corpuscular HGB Conc 30.3 GM/DL (32-36); Mean Corpuscular Hemoglobin 29 PG (27-34); Mean Platelet Volume 11.8 FL (9.6-12.0); Monocytes # 0.7 10*3/uL (0.11-0.8); Monocytes % 3.2 % (1.7-12.7); Neutrophils # 12.2 10*3/uL (1.4-7.4); Neutrophils % 52.4 % (38.7-73.9); Platelet Count 254 T/CUMM (130-400); Red Blood Count 2.69 MC/CUMM (3.8-5.5); Red Cell Distribution Width 14.7 % (9.3-17.3); White Blood Count 23.2 T/CUMM (4-12)
[2018-05-26 05:22] LABS: Osmolality,Calculated 287.1 MOS/KG (273-304); Potassium 4.1 MMOL/L (3.5-5.1)
[2018-05-26 05:44] LABS: Anisocytosis 1+; Lymphocytes 42 % (20-55); Macrocytosis 1+; Platelet Estimate Normal; Segmented Neutrophils 55 % (50-85); Total Cells Counted 100
[2018-05-26] MEDS: ALBUTEROL/IPRATROPIUM 3 ML NEB RESP TX SCH ×4 (07:00→19:14)
[2018-05-26] MEDS ORDERED: HYDROCORTISONE 100 MG VIAL IV SCH (07:00)
[2018-05-26] MEDS: SODIUM CHLORIDE 0.9% 1,000 ML IV SCH (08:43)
[2018-05-26] MEDS: MULTIVITAMIN (CENTRUM) TABLET PO SCH (08:46)
[2018-05-26] MEDS: ALLOPURINOL 300 MG TABLET PO SCH (08:46)
[2018-05-26] MEDS: ASPIRIN EC 81 MG TABLET PO SCH (08:46)
[2018-05-26] MEDS: THEOPHYLLINE ER 300 MG TABLET PO SCH ×2 (08:46→16:38)
[2018-05-26] MEDS: PANTOPRAZOLE 40 MG TABLET PO SCH ×2 (08:46→20:13)
[2018-05-26] MEDS: DUTASTERIDE 0.5 MG CAPSULE PO SCH (08:46)
[2018-05-26] MEDS: TAMSULOSIN 0.4 MG CAPSULE PO SCH (08:46)
[2018-05-26] MEDS: metFORMIN 500 MG TABLET PO SCH ×2 (08:46→16:38)
[2018-05-26] MEDS: LACTULOSE 20 GM/30 ML UDCUP NG SCH (08:46)
[2018-05-26] MEDS: BRIMONIDINE 0.1% OPH SOLN 5 ML BOTTLE BOTH EYES SCH ×3 (08:52→20:14)
[2018-05-26] MEDS: VANCOMYCIN INJ 1,250 MG in SODIUM CHLORIDE 0.9% 250 ML IV SCH ×2 (09:16→20:14)
[2018-05-26] MEDS: LIDOCAINE 5% PATCH TRANSDERM SCH (10:57)
[2018-05-26] MEDS ORDERED: SODIUM CHLORIDE 0.9% 1,000 ML IV PRN (11:51)
[2018-05-26] MEDS: CARVEDILOL 12.5 MG TABLET PO SCH ×2 (16:26→17:22)
[2018-05-26 19:44] LABS: Hematocrit 29.9 VOL% (42.0-52.0); Hemoglobin 9.5 GM/DL (14.0-18.0)
[2018-05-26] MEDS: MELATONIN 3 MG TABLET PO SCH (20:12)
[2018-05-26] MEDS: SIMVASTATIN 40 MG TABLET PO SCH (20:12)
[2018-05-26] MEDS: SACUBITRIL/VALSARTAN 49-51 MG TABLET PO SCH (20:13)
[2018-05-26] MEDS: QUEtiapine 25 MG TABLET PO SCH (20:13)
[2018-05-26] MEDS: FLUTICASONE 50 MCG NASAL SPRAY 16 GM BOTTLE BOTH NARES SCH (20:14)
[2018-05-27] MEDS: VANCOMYCIN INJ 1,250 MG in SODIUM CHLORIDE 0.9% 250 ML IV SCH ×2 (00:03→12:34)
[2018-05-27] MEDS: INSULIN REGULAR 100 UNIT/ML SUBCUT SCH ×4 (02:15→17:31)
[2018-05-27 04:54] LABS: Basophils # 0.1 10*3/uL (0.0-0.2); Basophils % 0.4 % (0.0-0.8); Eosinophils # 0.4 10*3/uL (0.0-0.87); Hematocrit 27.9 VOL% (42.0-52.0); Hemoglobin 8.7 GM/DL (14.0-18.0); Immature Granulocytes % 0.9 %; Immature Granulocytes Absolute 0.17 #; Lymphocytes # 8.6 10*3/uL (1.4-4.0); Lymphocytes % 43.5 % (21.2-54.2); Mean Corpuscular HGB Conc 31.2 GM/DL (32-36); Mean Corpuscular Hemoglobin 30 PG (27-34); Mean Corpuscular Volume 94.9 FL (87-102); Mean Platelet Volume 11.2 FL (9.6-12.0); Monocytes # 1.4 10*3/uL (0.11-0.8); Neutrophils # 9.2 10*3/uL (1.4-7.4); Neutrophils % 46.2 % (38.7-73.9); Platelet Count 262 T/CUMM (130-400); Red Blood Count 2.94 MC/CUMM (3.8-5.5); Red Cell Distribution Width 15.1 % (9.3-17.3); White Blood Count 19.8 T/CUMM (4-12)
[2018-05-27 05:20] LABS: Calcium 8.5 MG/DL (8.5-10.1); Potassium 3.3 MMOL/L (3.5-5.1)
[2018-05-27 05:32] LABS: Anisocytosis 1+; Platelet Estimate Normal; Polychromasia 1+
[2018-05-27 05:33] LABS: Macrocytosis Slight
[2018-05-27] MEDS: ALBUTEROL/IPRATROPIUM 3 ML NEB RESP TX SCH ×4 (07:14→19:29)
[2018-05-27] MEDS: metFORMIN 500 MG TABLET PO SCH ×2 (09:11→17:01)
[2018-05-27] MEDS: MULTIVITAMIN (CENTRUM) TABLET PO SCH (09:12)
[2018-05-27] MEDS: ALLOPURINOL 300 MG TABLET PO SCH (09:12)
[2018-05-27] MEDS: DUTASTERIDE 0.5 MG CAPSULE PO SCH (09:12)
[2018-05-27] MEDS: THEOPHYLLINE ER 300 MG TABLET PO SCH ×2 (09:12→17:01)
[2018-05-27] MEDS: PANTOPRAZOLE 40 MG TABLET PO SCH ×2 (09:12→20:29)
[2018-05-27] MEDS: TAMSULOSIN 0.4 MG CAPSULE PO SCH (09:13)
[2018-05-27] MEDS: FUROSEMIDE 40 MG TABLET PO SCH (09:13)
[2018-05-27] MEDS: ASPIRIN EC 81 MG TABLET PO SCH (09:13)
[2018-05-27] MEDS: SACUBITRIL/VALSARTAN 49-51 MG TABLET PO SCH ×2 (09:14→20:29)
[2018-05-27] MEDS: BRIMONIDINE 0.1% OPH SOLN 5 ML BOTTLE BOTH EYES SCH ×3 (09:15→20:31)
[2018-05-27] MEDS: LACTULOSE 20 GM/30 ML UDCUP NG SCH (09:15)
[2018-05-27] MEDS: LIDOCAINE 5% PATCH TRANSDERM SCH (09:16)
[2018-05-27] MEDS: CARVEDILOL 12.5 MG TABLET PO SCH ×2 (10:08→17:02)
[2018-05-27] MEDS: MELATONIN 3 MG TABLET PO SCH (20:28)
[2018-05-27] MEDS: SIMVASTATIN 40 MG TABLET PO SCH (20:29)
[2018-05-27] MEDS: QUEtiapine 25 MG TABLET PO SCH (20:29)
[2018-05-27] MEDS: FLUTICASONE 50 MCG NASAL SPRAY 16 GM BOTTLE BOTH NARES SCH (20:31)
[2018-05-28] MEDS: VANCOMYCIN INJ 1,250 MG in SODIUM CHLORIDE 0.9% 250 ML IV SCH ×2 (00:24→14:04)
[2018-05-28] MEDS: INSULIN REGULAR 100 UNIT/ML SUBCUT SCH ×4 (00:25→18:55)
[2018-05-28 05:28] LABS: Basophils # 0.1 10*3/uL (0.0-0.2); Basophils % 0.4 % (0.0-0.8); Eosinophils # 0.6 10*3/uL (0.0-0.87); Eosinophils % 3.3 % (0.00-10.9); Hemoglobin 9.3 GM/DL (14.0-18.0); Immature Granulocytes Absolute 0.19 #; Lymphocytes # 8.9 10*3/uL (1.4-4.0); Lymphocytes % 45.1 % (21.2-54.2); Mean Corpuscular Hemoglobin 30 PG (27-34); Mean Corpuscular Volume 95.2 FL (87-102); Mean Platelet Volume 11.2 FL (9.6-12.0); Monocytes # 1.4 10*3/uL (0.11-0.8); Neutrophils # 8.5 10*3/uL (1.4-7.4); Neutrophils % 43.2 % (38.7-73.9); Platelet Count 275 T/CUMM (130-400); Red Blood Count 3.15 MC/CUMM (3.8-5.5); White Blood Count 19.7 T/CUMM (4-12)
[2018-05-28 05:52] LABS: Calcium 8.1 MG/DL (8.5-10.1); Osmolality,Calculated 286.7 MOS/KG (273-304); Potassium 3.1 MMOL/L (3.5-5.1)
[2018-05-28] MEDS: ALBUTEROL/IPRATROPIUM 3 ML NEB RESP TX SCH ×4 (07:14→19:23)
[2018-05-28] MEDS ORDERED: MAGNESIUM SULF RIDER 4 GM in PREMIX 1 EACH IV PRN (09:35)
[2018-05-28] MEDS ORDERED: MAGNESIUM SULF RIDER 2 GM in PREMIX 1 EACH IV PRN (09:35)
[2018-05-28] MEDS: DUTASTERIDE 0.5 MG CAPSULE PO SCH (09:57)
[2018-05-28] MEDS: FUROSEMIDE 40 MG TABLET PO SCH (09:57)
[2018-05-28] MEDS: ALLOPURINOL 300 MG TABLET PO SCH (09:57)
[2018-05-28] MEDS: metFORMIN 500 MG TABLET PO SCH ×2 (09:57→17:43)
[2018-05-28] MEDS: MULTIVITAMIN (CENTRUM) TABLET PO SCH (09:57)
[2018-05-28] MEDS: ASPIRIN EC 81 MG TABLET PO SCH (09:57)
[2018-05-28] MEDS: CARVEDILOL 12.5 MG TABLET PO SCH ×2 (09:57→17:43)
[2018-05-28] MEDS: TAMSULOSIN 0.4 MG CAPSULE PO SCH (09:57)
[2018-05-28] MEDS: THEOPHYLLINE ER 300 MG TABLET PO SCH ×2 (09:58→17:43)
[2018-05-28] MEDS: LIDOCAINE 5% PATCH TRANSDERM SCH (09:58)
[2018-05-28] MEDS: LACTULOSE 20 GM/30 ML UDCUP NG SCH (09:58)
[2018-05-28] MEDS: BRIMONIDINE 0.1% OPH SOLN 5 ML BOTTLE BOTH EYES SCH ×3 (09:58→20:38)
[2018-05-28] MEDS: PANTOPRAZOLE 40 MG TABLET PO SCH ×2 (09:58→20:37)
[2018-05-28] MEDS: SACUBITRIL/VALSARTAN 49-51 MG TABLET PO SCH ×2 (10:02→20:37)
[2018-05-28] MEDS ORDERED: oxyCODONE IR 5 MG TABLET PO PRN (14:18)
[2018-05-28] MEDS: POTASSIUM CHLORIDE 20 MEQ/15 ML UDCUP PER TUBE PRN ×4 (16:35→22:08)
[2018-05-28] MEDS: MELATONIN 3 MG TABLET PO SCH (20:36)
[2018-05-28] MEDS: SIMVASTATIN 40 MG TABLET PO SCH (20:37)
[2018-05-28] MEDS: QUEtiapine 25 MG TABLET PO SCH (20:37)
[2018-05-28] MEDS: FLUTICASONE 50 MCG NASAL SPRAY 16 GM BOTTLE BOTH NARES SCH (20:38)
[2018-05-29] MEDS: VANCOMYCIN INJ 1,250 MG in SODIUM CHLORIDE 0.9% 250 ML IV SCH (00:12)
[2018-05-29] MEDS: INSULIN REGULAR 100 UNIT/ML SUBCUT SCH ×3 (00:12→11:47)
[2018-05-29] MEDS ORDERED: ONDANSETRON ODT 4 MG TABLET PO PRN (02:02)
[2018-05-29 06:18] LABS: Basophils # 0.1 10*3/uL (0.0-0.2); Basophils % 0.4 % (0.0-0.8); Eosinophils # 0.5 10*3/uL (0.0-0.87); Eosinophils % 2.7 % (0.00-10.9); Hematocrit 29.6 VOL% (42.0-52.0); Hemoglobin 9.2 GM/DL (14.0-18.0); Immature Granulocytes % 0.8 %; Immature Granulocytes Absolute 0.14 #; Lymphocytes % 44.5 % (21.2-54.2); Mean Corpuscular HGB Conc 31.1 GM/DL (32-36); Mean Corpuscular Hemoglobin 30 PG (27-34); Mean Corpuscular Volume 94.9 FL (87-102); Mean Platelet Volume 11.4 FL (9.6-12.0); Monocytes # 1.1 10*3/uL (0.11-0.8); Monocytes % 6.2 % (1.7-12.7); Neutrophils # 8.2 10*3/uL (1.4-7.4); Neutrophils % 45.4 % (38.7-73.9); Platelet Count 294 T/CUMM (130-400); Red Blood Count 3.12 MC/CUMM (3.8-5.5); Red Cell Distribution Width 14.7 % (9.3-17.3)
[2018-05-29 06:37] LABS: Hypochromasia 1+; Ovalocytes Slight; Platelet Estimate Adequate
[2018-05-29 06:39] LABS: Calcium 8.1 MG/DL (8.5-10.1); Osmolality,Calculated 285.8 MOS/KG (273-304); Potassium 3.9 MMOL/L (3.5-5.1)
[2018-05-29] MEDS: ALBUTEROL/IPRATROPIUM 3 ML NEB RESP TX SCH (07:31)
[2018-05-29] MEDS: CARVEDILOL 12.5 MG TABLET PO SCH (08:28)
[2018-05-29] MEDS: BRIMONIDINE 0.1% OPH SOLN 5 ML BOTTLE BOTH EYES SCH (08:29)
[2018-05-29] MEDS: LACTULOSE 20 GM/30 ML UDCUP NG SCH (08:29)
[2018-05-29] MEDS: DUTASTERIDE 0.5 MG CAPSULE PO SCH (08:29)
[2018-05-29] MEDS: ALLOPURINOL 300 MG TABLET PO SCH (08:30)
[2018-05-29] MEDS: PANTOPRAZOLE 40 MG TABLET PO SCH (08:30)
[2018-05-29] MEDS: ASPIRIN EC 81 MG TABLET PO SCH (08:30)
[2018-05-29] MEDS: THEOPHYLLINE ER 300 MG TABLET PO SCH (08:30)
[2018-05-29] MEDS: metFORMIN 500 MG TABLET PO SCH (08:30)
[2018-05-29] MEDS: MULTIVITAMIN (CENTRUM) TABLET PO SCH (08:30)
[2018-05-29] MEDS: TAMSULOSIN 0.4 MG CAPSULE PO SCH (08:30)
[2018-05-29] MEDS: SACUBITRIL/VALSARTAN 49-51 MG TABLET PO SCH (08:31)
[2018-05-29] MEDS: FUROSEMIDE 40 MG TABLET PO SCH (08:32)
[2018-05-29] MEDS: LIDOCAINE 5% PATCH TRANSDERM SCH (08:32)
[2018-05-29 12:11] VITALS: BP 122/66
[2018-05-30 13:45] LABS: VDRL Spinal Fluid Negative (Negative)
[2018-06-01 14:07] LABS: M. Tuberculosis PCR Result Negative (Negative); M. Tuberculosis PCR Source CSF
== END 2018-05-29 14:40 | disposition home health service (06) | DRG 981 ==
LOC: EDUNIT# → N.ED 15:32 → N.EDINP 17:31 → SUATTDRO 17:31 → N.ICU 17:51 → N.2E 05-21 11:35
PROVIDERS: ADMIT Internal Medicine; ATTEND Internal Medicine

== ENCOUNTER 2019-06-06 12:36 | Inpatient (IN) ==
[2019-06-06] MEDS ORDERED: FUROSEMIDE 40 MG/4 ML VIAL IV STA (13:40)
[2019-06-06] MEDS ORDERED: ALBUTEROL/IPRATROPIUM 3 ML NEB RESP TX STA (13:40)
[2019-06-06 14:03] LABS: Basophils # 0.1 10*3/uL (0.0-0.2); Basophils % 0.4 % (0.0-0.8); Eosinophils # 0.3 10*3/uL (0.0-0.87); Eosinophils % 2.4 % (0.00-10.9); Hematocrit 33.8 VOL% (42.0-52.0); Hemoglobin 10.4 GM/DL (14.0-18.0); Immature Granulocytes % 0.4 %; Immature Granulocytes Absolute 0.05 #; Lymphocytes % 43.9 % (21.2-54.2); Mean Corpuscular HGB Conc 30.8 GM/DL (32-36); Mean Corpuscular Volume 101.5 FL (87-102); Mean Platelet Volume 11.3 FL (9.6-12.0); Monocytes % 8.6 % (1.7-12.7); Neutrophils % 44.3 % (38.7-73.9); Platelet Count 114 T/CUMM (130-400); Red Blood Count 3.33 MC/CUMM (3.8-5.5); Red Cell Distribution Width 13.6 % (9.3-17.3); White Blood Count 11.5 T/CUMM (4-12)
[2019-06-06 14:13] LABS: PT Patient Result 10.6 SECS (9.6-12.2); Partial Thromboplastin Time 26.9 SECS (20.8-36.0)
[2019-06-06 14:17] LABS: ABG Base Excess 8.8 MMOL/L (-2.5-2.5); ABG HCO3 31.8 MMOL/L (20-26); ABG Oxygen Saturation 63.9 % (95-100); ABG PCO2 64.8 MM HG (35-48); ABG TCO2 33.2 MMOL/L (23-27)
[2019-06-06 14:21] LABS: ABG PO2 32.2 MM HG (80-95)
[2019-06-06 14:27] LABS: Troponin I < 0.015 NG/ML (0.00-0.045)
[2019-06-06 14:43] LABS: Estimated Glom Filtration Rate 190 ML/MIN
[2019-06-06 14:44] LABS: Alanine Aminotransferase 12 U/L (16-61); Albumin 2.9 G/DL (3.4-5.0); Alkaline Phosphatase 97 U/L (45-117); Aspartate Amino Transferase 11 U/L (0-37); Blood Urea Nitrogen 9 MG/DL (7-18); Calcium 8.3 MG/DL (8.5-10.1); Glucose 234 MG/DL (74-106); Total Protein 5.3 G/DL (6.4-8.3)
[2019-06-06] MEDS ORDERED: GLUCAGON 1 MG VIAL IM PRN (18:04)
[2019-06-06] MEDS ORDERED: DEXTROSE 10% 250 ML BAG IV PRN (18:04)
[2019-06-06] MEDS ORDERED: ONDANSETRON 4 MG/2 ML VIAL IV PRN (18:04)
[2019-06-06] MEDS: INSULIN REGULAR 100 UNIT/ML SUBCUT SCH (18:32)
[2019-06-06 20:33] LABS: Troponin I < 0.015 NG/ML (0.00-0.045)
[2019-06-06] MEDS ORDERED: FUROSEMIDE 20 MG/2 ML VIAL IV SCH (21:00)
[2019-06-06] MEDS: DOCUSATE SODIUM 100 MG CAPSULE PO SCH (21:48)
[2019-06-07] MEDS: INSULIN REGULAR 100 UNIT/ML SUBCUT SCH ×4 (01:12→19:06)
[2019-06-07] MEDS: ACETAMINOPHEN 325 MG TABLET PO PRN (04:09)
[2019-06-07 07:49] LABS: Basophils # 0.1 10*3/uL (0.0-0.2); Basophils % 0.4 % (0.0-0.8); Eosinophils # 0.4 10*3/uL (0.0-0.87); Eosinophils % 2.4 % (0.00-10.9); Hemoglobin 11.3 GM/DL (14.0-18.0); Immature Granulocytes % 0.3 %; Immature Granulocytes Absolute 0.05 #; Lymphocytes # 8.2 10*3/uL (1.4-4.0); Lymphocytes % 52.1 % (21.2-54.2); Mean Corpuscular HGB Conc 31.4 GM/DL (32-36); Mean Corpuscular Volume 98.9 FL (87-102); Mean Platelet Volume 11.4 FL (9.6-12.0); Monocytes % 7.1 % (1.7-12.7); Neutrophils % 37.7 % (38.7-73.9); Platelet Count 133 T/CUMM (130-400); Red Blood Count 3.64 MC/CUMM (3.8-5.5); Red Cell Distribution Width 13.3 % (9.3-17.3); White Blood Count 15.8 T/CUMM (4-12)
[2019-06-07 08:00] LABS: Calcium 8.5 MG/DL (8.5-10.1); Osmolality,Calculated 280.3 MOS/KG (273-304)
[2019-06-07 08:12] LABS: Atypical Lymphocytes Few; Hypochromasia 1+; Lymphocytes 46 % (20-55); Platelet Estimate Adequate; Segmented Neutrophils 47 % (50-85); Total Cells Counted 100
[2019-06-07] MEDS ORDERED: FUROSEMIDE 40 MG/4 ML VIAL IV ONE (08:44)
[2019-06-07] MEDS: PANTOPRAZOLE 40 MG TABLET PO SCH (08:45)
[2019-06-07] MEDS: DOCUSATE SODIUM 100 MG CAPSULE PO SCH ×2 (08:45→21:45)
[2019-06-07] MEDS ORDERED: NON-FORMULARY MEDICATION (Omeprazole 40 MG) PO SCH (09:00)
[2019-06-07] MEDS: THEOPHYLLINE ER (24 HR) 400 MG TABLET PO SCH (09:30)
[2019-06-07] MEDS: FINASTERIDE 5 MG TABLET PO SCH (09:30)
[2019-06-07] MEDS: TAMSULOSIN 0.4 MG CAPSULE PO SCH (09:30)
[2019-06-07] MEDS: GABAPENTIN 300 MG CAPSULE PO SCH ×2 (09:30→21:45)
[2019-06-07] MEDS: ASPIRIN EC 81 MG TABLET PO SCH (09:30)
[2019-06-07] MEDS: carvediloL 6.25 MG TABLET PO SCH ×2 (09:30→21:45)
[2019-06-07] MEDS: BRIMONIDINE 0.1% OPH SOLN 5 ML BOTTLE BOTH EYES SCH ×3 (10:36→21:51)
[2019-06-07] MEDS: SACUBITRIL/VALSARTAN 49-51 MG TABLET PO SCH ×2 (10:49→21:45)
[2019-06-07] MEDS: ALBUTEROL/IPRATROPIUM 3 ML NEB RESP TX PRN (13:18)
[2019-06-07] MEDS: VANCOMYCIN INJ 1,000 MG in SODIUM CHLORIDE 0.9% 250 ML IV SCH (14:32)
[2019-06-07] MEDS: metFORMIN 500 MG TABLET PO SCH (16:14)
[2019-06-07] MEDS: SIMVASTATIN 40 MG TABLET PO SCH (21:45)
[2019-06-07] MEDS: TEMAZEPAM 15 MG CAPSULE PO SCH (21:45)
[2019-06-07] MEDS: FLUTICASONE 50 MCG NASAL SPRAY 16 GM BOTTLE BOTH NARES SCH (21:45)
[2019-06-07] MEDS: QUEtiapine 25 MG TABLET PO SCH (21:49)
[2019-06-08] MEDS: INSULIN REGULAR 100 UNIT/ML SUBCUT SCH ×4 (00:35→18:38)
[2019-06-08] MEDS: VANCOMYCIN INJ 1,000 MG in SODIUM CHLORIDE 0.9% 250 ML IV SCH ×2 (03:27→14:55)
[2019-06-08 07:03] LABS: Calcium 8.9 MG/DL (8.5-10.1); Osmolality,Calculated 287.6 MOS/KG (273-304)
[2019-06-08 09:15] LABS: Basophils # 0.1 10*3/uL (0.0-0.2); Basophils % 0.3 % (0.0-0.8); Eosinophils # 0.4 10*3/uL (0.0-0.87); Eosinophils % 2.2 % (0.00-10.9); Hematocrit 39.5 VOL% (42.0-52.0); Hemoglobin 12.3 GM/DL (14.0-18.0); Immature Granulocytes % 0.4 %; Immature Granulocytes Absolute 0.06 #; Lymphocytes # 7.4 10*3/uL (1.4-4.0); Mean Corpuscular HGB Conc 31.1 GM/DL (32-36); Mean Platelet Volume 11.2 FL (9.6-12.0); Neutrophils % 43.1 % (38.7-73.9); Platelet Count 134 T/CUMM (130-400); Red Blood Count 3.95 MC/CUMM (3.8-5.5); Red Cell Distribution Width 13.4 % (9.3-17.3); White Blood Count 15.8 T/CUMM (4-12)
[2019-06-08] MEDS: DOCUSATE SODIUM 100 MG CAPSULE PO SCH ×2 (09:37→22:10)
[2019-06-08] MEDS: MULTIVITAMIN (CENTRUM) TABLET PO SCH (09:38)
[2019-06-08] MEDS: ASPIRIN EC 81 MG TABLET PO SCH (09:38)
[2019-06-08] MEDS: PANTOPRAZOLE 40 MG TABLET PO SCH (09:38)
[2019-06-08] MEDS: SACUBITRIL/VALSARTAN 49-51 MG TABLET PO SCH ×2 (09:38→22:09)
[2019-06-08] MEDS: TAMSULOSIN 0.4 MG CAPSULE PO SCH (09:38)
[2019-06-08] MEDS: GABAPENTIN 300 MG CAPSULE PO SCH ×2 (09:38→22:09)
[2019-06-08 09:39] LABS: Calcium 9.1 MG/DL (8.5-10.1); Osmolality,Calculated 283.8 MOS/KG (273-304)
[2019-06-08] MEDS: carvediloL 6.25 MG TABLET PO SCH ×2 (09:39→22:09)
[2019-06-08] MEDS: metFORMIN 500 MG TABLET PO SCH ×2 (09:39→16:34)
[2019-06-08] MEDS: GLIMEPIRIDE 4 MG TABLET PO SCH (09:39)
[2019-06-08] MEDS: FINASTERIDE 5 MG TABLET PO SCH (09:39)
[2019-06-08] MEDS: THEOPHYLLINE ER (24 HR) 400 MG TABLET PO SCH (09:39)
[2019-06-08] MEDS: BRIMONIDINE 0.1% OPH SOLN 5 ML BOTTLE BOTH EYES SCH ×3 (09:40→22:10)
[2019-06-08 09:41] LABS: Band Neutrophils 4 % (0-10); Eosinophils 1 % (0-10); Lymphocytes 40 % (20-55); Platelet Estimate Adequate; Segmented Neutrophils 45 % (50-85); Total Cells Counted 100
[2019-06-08 09:42] LABS: Anisocytosis 1+; Atypical Lymphocytes Few; Smudge Cells 1+
[2019-06-08] MEDS: ALBUTEROL/IPRATROPIUM 3 ML NEB RESP TX PRN (10:52)
[2019-06-08] MEDS ORDERED: POTASSIUM CHLORIDE 20 MEQ TABLET PO ONE (12:31)
[2019-06-08] MEDS: ALBUTEROL/IPRATROPIUM 3 ML NEB RESP TX SCH ×2 (15:40→19:42)
[2019-06-08] MEDS: TEMAZEPAM 15 MG CAPSULE PO SCH (22:09)
[2019-06-08] MEDS: QUEtiapine 25 MG TABLET PO SCH (22:10)
[2019-06-08] MEDS: SIMVASTATIN 40 MG TABLET PO SCH (22:10)
[2019-06-08] MEDS: FLUTICASONE 50 MCG NASAL SPRAY 16 GM BOTTLE BOTH NARES SCH (22:10)
[2019-06-09] MEDS: INSULIN REGULAR 100 UNIT/ML SUBCUT SCH ×5 (01:33→23:34)
[2019-06-09] MEDS: VANCOMYCIN INJ 1,000 MG in SODIUM CHLORIDE 0.9% 250 ML IV SCH ×2 (02:56→15:44)
[2019-06-09 05:26] LABS: Basophils # 0.1 10*3/uL (0.0-0.2); Basophils % 0.5 % (0.0-0.8); Eosinophils # 0.4 10*3/uL (0.0-0.87); Eosinophils % 3.2 % (0.00-10.9); Hematocrit 37.5 VOL% (42.0-52.0); Hemoglobin 11.5 GM/DL (14.0-18.0); Immature Granulocytes % 0.3 %; Immature Granulocytes Absolute 0.04 #; Lymphocytes # 6.5 10*3/uL (1.4-4.0); Lymphocytes % 55.4 % (21.2-54.2); Mean Corpuscular HGB Conc 30.7 GM/DL (32-36); Mean Corpuscular Volume 100.5 FL (87-102); Mean Platelet Volume 11.3 FL (9.6-12.0); Monocytes % 6.6 % (1.7-12.7); Platelet Count 129 T/CUMM (130-400); Red Blood Count 3.73 MC/CUMM (3.8-5.5); Red Cell Distribution Width 13.5 % (9.3-17.3); White Blood Count 11.7 T/CUMM (4-12)
[2019-06-09 05:56] LABS: Calcium 9.5 MG/DL (8.5-10.1); Osmolality,Calculated 281.1 MOS/KG (273-304)
[2019-06-09 06:29] LABS: Anisocytosis 1+; Hypochromasia 1+; Lymphocytes 43 % (20-55); Platelet Estimate Adequate; Segmented Neutrophils 50 % (50-85); Total Cells Counted 100
[2019-06-09] MEDS: ALBUTEROL/IPRATROPIUM 3 ML NEB RESP TX SCH ×4 (07:30→20:03)
[2019-06-09] MEDS: DOCUSATE SODIUM 100 MG CAPSULE PO SCH ×2 (09:08→21:13)
[2019-06-09] MEDS: GABAPENTIN 300 MG CAPSULE PO SCH ×2 (09:08→21:13)
[2019-06-09] MEDS: MULTIVITAMIN (CENTRUM) TABLET PO SCH (09:08)
[2019-06-09] MEDS: ASPIRIN EC 81 MG TABLET PO SCH (09:08)
[2019-06-09] MEDS: FINASTERIDE 5 MG TABLET PO SCH (09:08)
[2019-06-09] MEDS: THEOPHYLLINE ER (24 HR) 400 MG TABLET PO SCH (09:08)
[2019-06-09] MEDS: GLIMEPIRIDE 4 MG TABLET PO SCH (09:08)
[2019-06-09] MEDS: metFORMIN 500 MG TABLET PO SCH ×2 (09:08→17:12)
[2019-06-09] MEDS: BRIMONIDINE 0.1% OPH SOLN 5 ML BOTTLE BOTH EYES SCH ×3 (09:08→21:13)
[2019-06-09] MEDS: SACUBITRIL/VALSARTAN 49-51 MG TABLET PO SCH ×2 (09:08→21:12)
[2019-06-09] MEDS: carvediloL 6.25 MG TABLET PO SCH ×2 (09:09→21:13)
[2019-06-09] MEDS: TAMSULOSIN 0.4 MG CAPSULE PO SCH (09:09)
[2019-06-09] MEDS: PANTOPRAZOLE 40 MG TABLET PO SCH (09:09)
[2019-06-09] MEDS ORDERED: FUROSEMIDE 20 MG/2 ML VIAL IV ONE (15:29)
[2019-06-09] MEDS: QUEtiapine 25 MG TABLET PO SCH (21:12)
[2019-06-09] MEDS: TEMAZEPAM 15 MG CAPSULE PO SCH (21:12)
[2019-06-09] MEDS: FLUTICASONE 50 MCG NASAL SPRAY 16 GM BOTTLE BOTH NARES SCH (21:13)
[2019-06-09] MEDS: SIMVASTATIN 40 MG TABLET PO SCH (21:13)
[2019-06-10] MEDS: ACETAMINOPHEN 325 MG TABLET PO PRN (03:21)
[2019-06-10] MEDS: VANCOMYCIN INJ 1,000 MG in SODIUM CHLORIDE 0.9% 250 ML IV SCH ×2 (03:22→14:17)
[2019-06-10] MEDS: INSULIN REGULAR 100 UNIT/ML SUBCUT SCH ×3 (05:21→17:28)
[2019-06-10 05:32] LABS: Calcium 8.7 MG/DL (8.5-10.1); Osmolality,Calculated 292.6 MOS/KG (273-304)
[2019-06-10] MEDS: ALBUTEROL/IPRATROPIUM 3 ML NEB RESP TX SCH ×4 (07:23→19:22)
[2019-06-10] MEDS: TAMSULOSIN 0.4 MG CAPSULE PO SCH (09:08)
[2019-06-10] MEDS: DOCUSATE SODIUM 100 MG CAPSULE PO SCH ×2 (09:08→20:49)
[2019-06-10] MEDS: GABAPENTIN 300 MG CAPSULE PO SCH ×2 (09:08→20:50)
[2019-06-10] MEDS: SACUBITRIL/VALSARTAN 49-51 MG TABLET PO SCH ×2 (09:08→20:50)
[2019-06-10] MEDS: FUROSEMIDE 40 MG TABLET PO SCH (09:08)
[2019-06-10] MEDS: GLIMEPIRIDE 4 MG TABLET PO SCH (09:09)
[2019-06-10] MEDS: THEOPHYLLINE ER (24 HR) 400 MG TABLET PO SCH (09:09)
[2019-06-10] MEDS: ASPIRIN EC 81 MG TABLET PO SCH (09:09)
[2019-06-10] MEDS: carvediloL 6.25 MG TABLET PO SCH ×2 (09:09→20:50)
[2019-06-10] MEDS: MULTIVITAMIN (CENTRUM) TABLET PO SCH (09:09)
[2019-06-10] MEDS: FINASTERIDE 5 MG TABLET PO SCH (09:09)
[2019-06-10] MEDS: PANTOPRAZOLE 40 MG TABLET PO SCH (09:09)
[2019-06-10] MEDS: BRIMONIDINE 0.1% OPH SOLN 5 ML BOTTLE BOTH EYES SCH ×3 (09:10→20:51)
[2019-06-10] MEDS: metFORMIN 500 MG TABLET PO SCH ×2 (09:12→17:07)
[2019-06-10] MEDS: TEMAZEPAM 15 MG CAPSULE PO SCH (20:49)
[2019-06-10] MEDS: SIMVASTATIN 40 MG TABLET PO SCH (20:50)
[2019-06-10] MEDS: QUEtiapine 25 MG TABLET PO SCH (20:50)
[2019-06-10] MEDS: FLUTICASONE 50 MCG NASAL SPRAY 16 GM BOTTLE BOTH NARES SCH (20:51)
[2019-06-11] MEDS: INSULIN REGULAR 100 UNIT/ML SUBCUT SCH ×4 (00:33→17:33)
[2019-06-11] MEDS: VANCOMYCIN INJ 1,000 MG in SODIUM CHLORIDE 0.9% 250 ML IV SCH ×2 (03:00→14:26)
[2019-06-11] MEDS: ALBUTEROL/IPRATROPIUM 3 ML NEB RESP TX SCH ×4 (07:43→20:00)
[2019-06-11] MEDS: ASPIRIN EC 81 MG TABLET PO SCH (09:32)
[2019-06-11] MEDS: PANTOPRAZOLE 40 MG TABLET PO SCH (09:32)
[2019-06-11] MEDS: GABAPENTIN 300 MG CAPSULE PO SCH ×2 (09:32→20:57)
[2019-06-11] MEDS: carvediloL 6.25 MG TABLET PO SCH ×2 (09:32→20:58)
[2019-06-11] MEDS: DOCUSATE SODIUM 100 MG CAPSULE PO SCH ×2 (09:32→20:58)
[2019-06-11] MEDS: SACUBITRIL/VALSARTAN 49-51 MG TABLET PO SCH ×2 (09:32→20:58)
[2019-06-11] MEDS: TAMSULOSIN 0.4 MG CAPSULE PO SCH (09:33)
[2019-06-11] MEDS: metFORMIN 500 MG TABLET PO SCH ×2 (09:33→16:24)
[2019-06-11] MEDS: GLIMEPIRIDE 4 MG TABLET PO SCH (09:33)
[2019-06-11] MEDS: THEOPHYLLINE ER (24 HR) 400 MG TABLET PO SCH (09:33)
[2019-06-11] MEDS: FINASTERIDE 5 MG TABLET PO SCH (09:33)
[2019-06-11] MEDS: MULTIVITAMIN (CENTRUM) TABLET PO SCH (09:33)
[2019-06-11] MEDS: FUROSEMIDE 40 MG TABLET PO SCH (09:33)
[2019-06-11] MEDS: BRIMONIDINE 0.1% OPH SOLN 5 ML BOTTLE BOTH EYES SCH ×3 (09:35→20:59)
[2019-06-11] MEDS: QUEtiapine 25 MG TABLET PO SCH (20:57)
[2019-06-11] MEDS: TEMAZEPAM 15 MG CAPSULE PO SCH (20:57)
[2019-06-11] MEDS: SIMVASTATIN 40 MG TABLET PO SCH (20:57)
[2019-06-11] MEDS: ACETAMINOPHEN 325 MG TABLET PO PRN (20:58)
[2019-06-11] MEDS: FLUTICASONE 50 MCG NASAL SPRAY 16 GM BOTTLE BOTH NARES SCH (20:59)
[2019-06-12] MEDS: INSULIN REGULAR 100 UNIT/ML SUBCUT SCH ×3 (00:12→12:54)
[2019-06-12] MEDS: VANCOMYCIN INJ 1,000 MG in SODIUM CHLORIDE 0.9% 250 ML IV SCH (03:05)
[2019-06-12] MEDS: ALBUTEROL/IPRATROPIUM 3 ML NEB RESP TX SCH ×2 (07:26→12:09)
[2019-06-12] MEDS: GLIMEPIRIDE 4 MG TABLET PO SCH (09:08)
[2019-06-12] MEDS: DOCUSATE SODIUM 100 MG CAPSULE PO SCH (09:08)
[2019-06-12] MEDS: ASPIRIN EC 81 MG TABLET PO SCH (09:08)
[2019-06-12] MEDS: FUROSEMIDE 40 MG TABLET PO SCH (09:08)
[2019-06-12] MEDS: MULTIVITAMIN (CENTRUM) TABLET PO SCH (09:08)
[2019-06-12] MEDS: TAMSULOSIN 0.4 MG CAPSULE PO SCH (09:08)
[2019-06-12] MEDS: carvediloL 6.25 MG TABLET PO SCH (09:09)
[2019-06-12] MEDS: PANTOPRAZOLE 40 MG TABLET PO SCH (09:09)
[2019-06-12] MEDS: FINASTERIDE 5 MG TABLET PO SCH (09:09)
[2019-06-12] MEDS: SACUBITRIL/VALSARTAN 49-51 MG TABLET PO SCH (09:09)
[2019-06-12] MEDS: GABAPENTIN 300 MG CAPSULE PO SCH (09:09)
[2019-06-12] MEDS: THEOPHYLLINE ER (24 HR) 400 MG TABLET PO SCH (09:09)
[2019-06-12] MEDS: metFORMIN 500 MG TABLET PO SCH (09:13)
[2019-06-12] MEDS: BRIMONIDINE 0.1% OPH SOLN 5 ML BOTTLE BOTH EYES SCH (09:15)
[2019-06-12 13:01] VITALS: BP 147/65
== END 2019-06-12 14:23 | disposition home health service (06) | DRG 292 ==
LOC: N.EDINP 12:36 → N.ED 12:36 → N.TELES 17:31
PROVIDERS: ADMIT Family Medicine; ATTEND Family Medicine

== ENCOUNTER 2019-11-23 03:07 | Inpatient (IN) ==
[2019-11-23] MEDS ORDERED: FUROSEMIDE 100 MG/10 ML VIAL IV STA (03:19)
[2019-11-23] MEDS ORDERED: ONDANSETRON 4 MG/2 ML VIAL IV STA (03:19)
[2019-11-23] MEDS ORDERED: methylPREDNISolone SOD SUC 125 MG/2 ML VIAL IV STA (03:19)
[2019-11-23] MEDS ORDERED: VECURONIUM 10 MG VIAL IV ONE (03:26)
[2019-11-23] MEDS ORDERED: ETOMIDATE 20 MG/10 ML VIAL IV ONE (03:26)
[2019-11-23 03:29] LABS: Basophils # 0.1 10*3/uL (0.0-0.2); Basophils % 0.4 % (0.0-0.8); Eosinophils # 0.4 10*3/uL (0.0-0.87); Eosinophils % 2.1 % (0.00-10.9); Hematocrit 39.6 VOL% (42.0-52.0); Hemoglobin 12.2 GM/DL (14.0-18.0); Immature Granulocytes % 0.5 %; Immature Granulocytes Absolute 0.11 #; Lymphocytes # 7.2 10*3/uL (1.4-4.0); Lymphocytes % 35.1 % (21.2-54.2); Mean Corpuscular HGB Conc 30.8 GM/DL (32-36); Mean Corpuscular Volume 99.5 FL (87-102); Mean Platelet Volume 11.5 FL (9.6-12.0); Neutrophils % 54.9 % (38.7-73.9); Platelet Count 173 T/CUMM (130-400); Red Blood Count 3.98 MC/CUMM (3.8-5.5); Red Cell Distribution Width 12.8 % (9.3-17.3); White Blood Count 20.6 T/CUMM (4-12)
[2019-11-23] MEDS ORDERED: ALBUTEROL NEB SOLN 5 MG/ML 20 ML/BOTTLE CONT NEB SCH (03:30)
[2019-11-23 03:39] LABS: INR 0.9; PT Patient Result 9.9 SECS (9.8-11.9)
[2019-11-23] MEDS ORDERED: PHENYLEPHRINE DRIP 40 MG/250 ML PREMIX IV PRN (03:42)
[2019-11-23] MEDS ORDERED: ETOMIDATE 20 MG/10 ML VIAL IV STA (03:45)
[2019-11-23] MEDS ORDERED: VECURONIUM 10 MG VIAL IV STA (03:46)
[2019-11-23] MEDS ORDERED: VANCOMYCIN INJ 1,000 MG in SODIUM CHLORIDE 0.9% 250 ML IV STA (03:48)
[2019-11-23 03:54] LABS: Albumin 3.5 G/DL (3.4-5.0); Bilirubin,Total 0.5 MG/DL (0.2-1.0); Calcium 8.8 MG/DL (8.5-10.1); Osmolality,Calculated 283.5 MOS/KG (273-304); Total Protein 6.5 G/DL (6.4-8.3)
[2019-11-23 03:54] LABS: ABG Base Excess 10.2 MMOL/L (-2.5-2.5); ABG Oxygen Saturation 99.9 % (95-100); ABG PCO2 68.6 MM HG (35-48); ABG PH 7.358 (7.35-7.45); ABG TCO2 34.5 MMOL/L (23-27); Allen Test Positive; Pt O2 Delivery Device Ventilator
[2019-11-23 04:06] LABS: Barbiturates Screen,Urine Negative (Negative); Benzodiazepines Screen,Urine Negative (Negative); Cannabinoid Screen,Urine Negative (Negative); Opiate Screen,Urine Negative (Negative); Phencyclidine Screen,Urine Negative (Negative)
[2019-11-23 04:13] LABS: Amorphous Crystals,Urine Occasional /HPF (Few); Apearance,Urine Slightly Hazy (Clear); Bilirubin,Urine Negative (Negative); Blood, Urine Negative (Negative); Glucose,Urine (UA) Negative (Negative); Ketones,Urine Negative (Negative); Mucus,Urine Occasional /LPF (Occasional); Nitrite,Urine Negative (Negative); Protein,Urine 100 MG/DL; RBC,Urine 4 /HPF (0-4); Squamous Epithelial Cell,Urine Occasional /HPF (0-10); Urine Color Yellow (Yellow); Urine Specific Gravity 1.017 (1.001-1.035); Urine Urobilinogen < 2.0 EU/DL (0.2-1.0); WBC,Urine 2 /HPF (0-6)
[2019-11-23 04:18] LABS: Band Neutrophils 1 % (0-10); Lymphocytes 34 % (20-55); Platelet Estimate Normal; Segmented Neutrophils 61 % (50-85); Total Cells Counted 100
[2019-11-23] MEDS ORDERED: DEXAMETHASONE 4 MG/1 ML VIAL ONE (05:28)
[2019-11-23] MEDS ORDERED: ONDANSETRON 4 MG/2 ML VIAL IV PRN (06:11)
[2019-11-23] MEDS ORDERED: PROMETHAZINE 25 MG/1 ML VIAL IM PRN (06:11)
[2019-11-23] MEDS ORDERED: FUROSEMIDE 40 MG/4 ML VIAL IV ONE (06:11)
[2019-11-23] MEDS: PHENYLEPHRINE DRIP 40 MG/250 ML PREMIX IV SCH (06:16)
[2019-11-23] MEDS: LEVOFLOXACIN INJ 750 MG in PREMIX 1 EACH IV SCH (06:29)
[2019-11-23 06:40] LABS: Ferritin 173.1 ng/ml (26-388)
[2019-11-23] MEDS: ENOXAPARIN 40 MG/0.4 ML SYRINGE SUBCUT SCH (08:15)
[2019-11-23] MEDS: PANTOPRAZOLE 40 MG VIAL IV SCH (08:15)
[2019-11-23] MEDS ORDERED: ALBUTEROL/IPRATROPIUM 3 ML NEB RESP TX PRN (08:41)
[2019-11-23] MEDS: FUROSEMIDE 40 MG/4 ML VIAL IV SCH (08:59)
[2019-11-23] MEDS: methylPREDNISolone SOD SUC 40 MG/1 ML VIAL IV SCH ×2 (08:59→21:11)
[2019-11-23] MEDS ORDERED: GLUCAGON 1 MG VIAL IM PRN (11:27)
[2019-11-23] MEDS ORDERED: DEXTROSE 10% 250 ML BAG IV PRN (11:27)
[2019-11-23] MEDS: DESITIN 4OZ/NYSTATIN 15 GRAM MIXTURE PASTE TOP SCH ×2 (12:10→21:11)
[2019-11-23] MEDS ORDERED: INSULIN REGULAR 100 UNIT/ML ONE (12:42)
[2019-11-23] MEDS ORDERED: INSULIN REGULAR 100 UNIT/ML SUBCUT SCH (16:30)
[2019-11-23] MEDS: INSULIN REGULAR 100 UNIT/ML SUBCUT SCH (18:15)
[2019-11-23] MEDS: ASPIRIN EC 81 MG TABLET PO SCH (18:15)
[2019-11-23] MEDS: SIMVASTATIN 40 MG TABLET PO SCH (21:11)
[2019-11-24] MEDS: INSULIN REGULAR 100 UNIT/ML SUBCUT SCH ×4 (01:13→17:49)
[2019-11-24 03:34] LABS: Basophils % 0.1 % (0.0-0.8); Hemoglobin 11.5 GM/DL (14.0-18.0); Immature Granulocytes % 0.7 %; Immature Granulocytes Absolute 0.16 #; Lymphocytes # 5.8 10*3/uL (1.4-4.0); Lymphocytes % 24.5 % (21.2-54.2); Mean Corpuscular HGB Conc 31.9 GM/DL (32-36); Mean Corpuscular Volume 97.3 FL (87-102); Mean Platelet Volume 11.2 FL (9.6-12.0); Monocytes % 2.4 % (1.7-12.7); Neutrophils % 72.3 % (38.7-73.9); Platelet Count 161 T/CUMM (130-400); White Blood Count 23.8 T/CUMM (4-12)
[2019-11-24 03:48] LABS: Calcium 9.2 MG/DL (8.5-10.1); Osmolality,Calculated 286.5 MOS/KG (273-304)
[2019-11-24 04:42] LABS: ABG Base Excess 12.6 MMOL/L (-2.5-2.5); ABG HCO3 36.4 MMOL/L (20-26); ABG Oxygen Saturation 98.8 % (95-100); ABG PCO2 56.5 MM HG (35-48); ABG PH 7.448 (7.35-7.45); ABG TCO2 34.8 MMOL/L (23-27); Allen Test Positive; Pt O2 Delivery Device Ventilator
[2019-11-24] MEDS: PHENYLEPHRINE DRIP 40 MG/250 ML PREMIX IV SCH ×2 (05:16→05:38)
[2019-11-24] MEDS: LEVOFLOXACIN INJ 750 MG in PREMIX 1 EACH IV SCH (06:05)
[2019-11-24 07:42] LABS: Band Neutrophils 1 % (0-10); Lymphocytes 14 % (20-55); Platelet Estimate Normal; Segmented Neutrophils 84 % (50-85); Total Cells Counted 100
[2019-11-24 07:43] LABS: Stomatocytes 1+; Target Cells Slight
[2019-11-24] MEDS ORDERED: NOREPINEPHRINE 4 MG/4 ML VIAL IV ONE (08:52)
[2019-11-24] MEDS ORDERED: ALBUMIN 25% 25 GM in PREMIX 1 EACH IV ONE (08:54)
[2019-11-24] MEDS ORDERED: ATROPINE 1 MG/10 ML SYRINGE ONE (08:55)
[2019-11-24] MEDS: methylPREDNISolone SOD SUC 40 MG/1 ML VIAL IV SCH ×2 (09:08→20:38)
[2019-11-24] MEDS: PANTOPRAZOLE 40 MG VIAL IV SCH (09:08)
[2019-11-24] MEDS: ENOXAPARIN 40 MG/0.4 ML SYRINGE SUBCUT SCH (09:08)
[2019-11-24] MEDS: FUROSEMIDE 40 MG/4 ML VIAL IV SCH ×2 (09:08→20:38)
[2019-11-24] MEDS: ASPIRIN EC 81 MG TABLET PO SCH (09:08)
[2019-11-24] MEDS: DESITIN 4OZ/NYSTATIN 15 GRAM MIXTURE PASTE TOP SCH ×2 (09:08→20:39)
[2019-11-24] MEDS: MORPHINE 4 MG/1 ML VIAL IV PRN (09:20)
[2019-11-24] MEDS: SIMVASTATIN 40 MG TABLET PO SCH (20:38)
[2019-11-25] MEDS: INSULIN REGULAR 100 UNIT/ML SUBCUT SCH ×4 (00:20→18:39)
[2019-11-25 04:43] LABS: ABG Base Excess 13.4 MMOL/L (-2.5-2.5); ABG HCO3 37.3 MMOL/L (20-26); ABG Oxygen Saturation 99.2 % (95-100); ABG PCO2 59.1 MM HG (35-48); ABG PH 7.442 (7.35-7.45); Allen Test Positive; Pt O2 Delivery Device Ventilator
[2019-11-25 04:55] LABS: Calcium 9.4 MG/DL (8.5-10.1); Osmolality,Calculated 290.7 MOS/KG (273-304)
[2019-11-25 05:41] LABS: Basophils % 0.1 % (0.0-0.8); Hematocrit 34.2 VOL% (42.0-52.0); Hemoglobin 10.6 GM/DL (14.0-18.0); Immature Granulocytes Absolute 0.16 #; Lymphocytes # 3.7 10*3/uL (1.4-4.0); Lymphocytes % 23.1 % (21.2-54.2); Mean Corpuscular Volume 100.3 FL (87-102); Mean Platelet Volume 11.8 FL (9.6-12.0); Monocytes % 4.7 % (1.7-12.7); Neutrophils % 71.1 % (38.7-73.9); Platelet Count 146 T/CUMM (130-400); Red Blood Count 3.41 MC/CUMM (3.8-5.5); Red Cell Distribution Width 13.2 % (9.3-17.3); White Blood Count 15.9 T/CUMM (4-12)
[2019-11-25] MEDS: PHENYLEPHRINE DRIP 40 MG/250 ML PREMIX IV SCH (06:13)
[2019-11-25] MEDS: LEVOFLOXACIN INJ 750 MG in PREMIX 1 EACH IV SCH (06:19)
[2019-11-25] MEDS: PANTOPRAZOLE 40 MG VIAL IV SCH (09:45)
[2019-11-25] MEDS: methylPREDNISolone SOD SUC 40 MG/1 ML VIAL IV SCH ×2 (10:00→19:52)
[2019-11-25] MEDS: ASPIRIN EC 81 MG TABLET PO SCH (10:00)
[2019-11-25] MEDS: FUROSEMIDE 40 MG/4 ML VIAL IV SCH ×2 (12:04→19:52)
[2019-11-25] MEDS: ENOXAPARIN 40 MG/0.4 ML SYRINGE SUBCUT SCH (12:04)
[2019-11-25] MEDS: DESITIN 4OZ/NYSTATIN 15 GRAM MIXTURE PASTE TOP SCH ×2 (12:05→20:00)
[2019-11-25] MEDS: SIMVASTATIN 40 MG TABLET PO SCH (20:02)
[2019-11-26] MEDS: INSULIN REGULAR 100 UNIT/ML SUBCUT SCH ×4 (00:05→18:10)
[2019-11-26 03:50] LABS: Basophils % 0.1 % (0.0-0.8); Hemoglobin 11.7 GM/DL (14.0-18.0); Immature Granulocytes % 1.4 %; Immature Granulocytes Absolute 0.23 #; Lymphocytes # 4.3 10*3/uL (1.4-4.0); Lymphocytes % 25.9 % (21.2-54.2); Mean Corpuscular HGB Conc 30.8 GM/DL (32-36); Mean Corpuscular Volume 99.2 FL (87-102); Mean Platelet Volume 11.2 FL (9.6-12.0); Monocytes % 5.2 % (1.7-12.7); Neutrophils % 67.4 % (38.7-73.9); Platelet Count 152 T/CUMM (130-400); Red Blood Count 3.83 MC/CUMM (3.8-5.5); Red Cell Distribution Width 13.4 % (9.3-17.3); White Blood Count 16.4 T/CUMM (4-12)
[2019-11-26 04:42] LABS: ABG Base Excess 15.3 MMOL/L (-2.5-2.5); ABG HCO3 39.3 MMOL/L (20-26); ABG Oxygen Saturation 99.1 % (95-100); ABG PCO2 61.4 MM HG (35-48); ABG PH 7.449 (7.35-7.45); ABG TCO2 37.8 MMOL/L (23-27); Allen Test Positive; Pt O2 Delivery Device Ventilator
[2019-11-26 04:52] LABS: Atypical Lymphocytes Few; Hypochromasia 1+; Lymphocytes 32 % (20-55); Polychromasia Slight; Segmented Neutrophils 64 % (50-85); Total Cells Counted 100
[2019-11-26 04:54] LABS: Macrocytosis Slight
[2019-11-26 05:32] LABS: Calcium 9.8 MG/DL (8.5-10.1); Osmolality,Calculated 300.3 MOS/KG (273-304)
[2019-11-26] MEDS: PHENYLEPHRINE DRIP 40 MG/250 ML PREMIX IV SCH (06:43)
[2019-11-26] MEDS: LEVOFLOXACIN INJ 750 MG in PREMIX 1 EACH IV SCH (06:46)
[2019-11-26] MEDS: ENOXAPARIN 40 MG/0.4 ML SYRINGE SUBCUT SCH (08:55)
[2019-11-26] MEDS: ASPIRIN EC 81 MG TABLET PO SCH (08:55)
[2019-11-26] MEDS: PANTOPRAZOLE 40 MG VIAL IV SCH (08:55)
[2019-11-26] MEDS: methylPREDNISolone SOD SUC 40 MG/1 ML VIAL IV SCH ×2 (08:56→21:54)
[2019-11-26] MEDS: FUROSEMIDE 40 MG/4 ML VIAL IV SCH ×2 (08:56→21:55)
[2019-11-26] MEDS: DESITIN 4OZ/NYSTATIN 15 GRAM MIXTURE PASTE TOP SCH ×2 (09:20→21:51)
[2019-11-26] MEDS: ASPIRIN CHEW 81 MG TABLET PO SCH (09:21)
[2019-11-26] MEDS: SIMVASTATIN 40 MG TABLET PO SCH (21:51)
[2019-11-26] MEDS: carvediloL 3.125 MG TABLET PO SCH (21:51)
[2019-11-27] MEDS: INSULIN REGULAR 100 UNIT/ML SUBCUT SCH ×4 (00:16→17:48)
[2019-11-27 06:46] LABS: Calcium 9.5 MG/DL (8.5-10.1); Osmolality,Calculated 290.5 MOS/KG (273-304)
[2019-11-27 06:47] LABS: Basophils # 0.1 10*3/uL (0.0-0.2); Basophils % 0.3 % (0.0-0.8); Hematocrit 41.9 VOL% (42.0-52.0); Immature Granulocytes % 2.2 %; Lymphocytes # 6.9 10*3/uL (1.4-4.0); Lymphocytes % 38.3 % (21.2-54.2); Mean Corpuscular Volume 99.5 FL (87-102); Mean Platelet Volume 11.3 FL (9.6-12.0); Monocytes % 4.7 % (1.7-12.7); Neutrophils % 54.5 % (38.7-73.9); Platelet Count 170 T/CUMM (130-400); Red Blood Count 4.21 MC/CUMM (3.8-5.5)
[2019-11-27] MEDS: PHENYLEPHRINE DRIP 40 MG/250 ML PREMIX IV SCH (07:14)
[2019-11-27] MEDS: carvediloL 3.125 MG TABLET PO SCH ×2 (08:41→21:48)
[2019-11-27] MEDS: ASPIRIN CHEW 81 MG TABLET PO SCH (08:41)
[2019-11-27] MEDS: FUROSEMIDE 40 MG/4 ML VIAL IV SCH ×2 (08:42→21:49)
[2019-11-27] MEDS: ENOXAPARIN 40 MG/0.4 ML SYRINGE SUBCUT SCH (08:42)
[2019-11-27] MEDS: methylPREDNISolone SOD SUC 40 MG/1 ML VIAL IV SCH ×2 (08:42→21:49)
[2019-11-27] MEDS: PANTOPRAZOLE 40 MG VIAL IV SCH (08:42)
[2019-11-27] MEDS: LEVOFLOXACIN INJ 750 MG in PREMIX 1 EACH IV SCH (08:43)
[2019-11-27] MEDS: DESITIN 4OZ/NYSTATIN 15 GRAM MIXTURE PASTE TOP SCH (11:50)
[2019-11-27] MEDS: BRIMONIDINE 0.1% OPH SOLN 5 ML BOTTLE BOTH EYES SCH (17:49)
[2019-11-27] MEDS: SACUBITRIL/VALSARTAN 49-51 MG TABLET PO SCH (21:48)
[2019-11-27] MEDS: SIMVASTATIN 40 MG TABLET PO SCH (21:48)
[2019-11-27] MEDS: QUEtiapine 25 MG TABLET PO SCH (21:48)
[2019-11-27] MEDS: MORPHINE 4 MG/1 ML VIAL IV PRN (21:50)
[2019-11-28] MEDS: BRIMONIDINE 0.1% OPH SOLN 5 ML BOTTLE BOTH EYES SCH ×4 (00:13→21:08)
[2019-11-28] MEDS: DESITIN 4OZ/NYSTATIN 15 GRAM MIXTURE PASTE TOP SCH ×3 (00:13→21:10)
[2019-11-28] MEDS: MORPHINE 4 MG/1 ML VIAL IV PRN (02:10)
[2019-11-28] MEDS: LEVOFLOXACIN INJ 750 MG in PREMIX 1 EACH IV SCH (05:50)
[2019-11-28 06:33] LABS: Basophils # 0.1 10*3/uL (0.0-0.2); Basophils % 0.3 % (0.0-0.8); Eosinophils # 0.1 10*3/uL (0.0-0.87); Eosinophils % 0.6 % (0.00-10.9); Hematocrit 47.9 VOL% (42.0-52.0); Hemoglobin 14.7 GM/DL (14.0-18.0); Immature Granulocytes % 1.7 %; Immature Granulocytes Absolute 0.37 #; Lymphocytes % 46.4 % (21.2-54.2); Mean Corpuscular HGB Conc 30.7 GM/DL (32-36); Mean Platelet Volume 10.8 FL (9.6-12.0); Monocytes % 8.7 % (1.7-12.7); Neutrophils % 42.3 % (38.7-73.9); Platelet Count 198 T/CUMM (130-400); Red Blood Count 4.84 MC/CUMM (3.8-5.5); Red Cell Distribution Width 12.8 % (9.3-17.3); White Blood Count 21.7 T/CUMM (4-12)
[2019-11-28 06:55] LABS: Osmolality,Calculated 284.7 MOS/KG (273-304)
[2019-11-28 06:57] LABS: Atypical Lymphocytes Few; Eosinophils 1 % (0-10); Hypochromasia 1+; Lymphocytes 48 % (20-55); Nucleated Red Blood Cells 1 (0-5); Segmented Neutrophils 40 % (50-85); Total Cells Counted 100
[2019-11-28 06:58] LABS: Macrocytosis Slight; Platelet Estimate Adequate; Polychromasia Slight
[2019-11-28] MEDS: INSULIN REGULAR 100 UNIT/ML SUBCUT SCH ×4 (08:36→21:07)
[2019-11-28] MEDS: FUROSEMIDE 40 MG/4 ML VIAL IV SCH (08:37)
[2019-11-28] MEDS: methylPREDNISolone SOD SUC 40 MG/1 ML VIAL IV SCH ×2 (08:37→21:08)
[2019-11-28] MEDS: ENOXAPARIN 40 MG/0.4 ML SYRINGE SUBCUT SCH (08:37)
[2019-11-28] MEDS: PANTOPRAZOLE 40 MG TABLET PO SCH (08:38)
[2019-11-28] MEDS: SACUBITRIL/VALSARTAN 49-51 MG TABLET PO SCH ×2 (08:38→21:06)
[2019-11-28] MEDS: ASPIRIN CHEW 81 MG TABLET PO SCH (08:38)
[2019-11-28] MEDS: carvediloL 3.125 MG TABLET PO SCH ×2 (08:38→21:07)
[2019-11-28] MEDS: allopurinoL 300 MG TABLET PO SCH (08:38)
[2019-11-28] MEDS: MULTIVITAMIN (CENTRUM) TABLET PO SCH (08:38)
[2019-11-28] MEDS: DUTASTERIDE 0.5 MG CAPSULE PO SCH (08:38)
[2019-11-28] MEDS: TAMSULOSIN 0.4 MG CAPSULE PO SCH (08:38)
[2019-11-28] MEDS: FUROSEMIDE 40 MG TABLET PO SCH (09:14)
[2019-11-28] MEDS ORDERED: TEMAZEPAM 15 MG CAPSULE PO PRN (17:11)
[2019-11-28] MEDS: SIMVASTATIN 40 MG TABLET PO SCH (21:07)
[2019-11-28] MEDS: QUEtiapine 25 MG TABLET PO SCH (21:07)
[2019-11-29 05:48] LABS: Basophils # 0.1 10*3/uL (0.0-0.2); Basophils % 0.3 % (0.0-0.8); Hematocrit 45.4 VOL% (42.0-52.0); Hemoglobin 14.2 GM/DL (14.0-18.0); Immature Granulocytes % 1.6 %; Lymphocytes # 9.8 10*3/uL (1.4-4.0); Lymphocytes % 39.4 % (21.2-54.2); Mean Corpuscular HGB Conc 31.3 GM/DL (32-36); Mean Corpuscular Volume 98.1 FL (87-102); Monocytes % 2.1 % (1.7-12.7); Neutrophils % 56.6 % (38.7-73.9); Platelet Count 185 T/CUMM (130-400); Red Blood Count 4.63 MC/CUMM (3.8-5.5); Red Cell Distribution Width 12.8 % (9.3-17.3); White Blood Count 24.8 T/CUMM (4-12)
[2019-11-29 06:07] LABS: Calcium 9.3 MG/DL (8.5-10.1); Osmolality,Calculated 284.1 MOS/KG (273-304)
[2019-11-29 06:09] LABS: Atypical Lymphocytes Few; Hypochromasia 1+; Lymphocytes 36 % (20-55); Microcytosis 1+; Platelet Estimate Adequate; Segmented Neutrophils 62 % (50-85); Total Cells Counted 100
[2019-11-29] MEDS: LEVOFLOXACIN INJ 750 MG in PREMIX 1 EACH IV SCH (06:30)
[2019-11-29] MEDS: SACUBITRIL/VALSARTAN 49-51 MG TABLET PO SCH ×2 (08:29→20:53)
[2019-11-29] MEDS: allopurinoL 300 MG TABLET PO SCH (08:29)
[2019-11-29] MEDS: PANTOPRAZOLE 40 MG TABLET PO SCH (08:29)
[2019-11-29] MEDS: methylPREDNISolone SOD SUC 40 MG/1 ML VIAL IV SCH (08:29)
[2019-11-29] MEDS: ASPIRIN CHEW 81 MG TABLET PO SCH (08:30)
[2019-11-29] MEDS: BRIMONIDINE 0.1% OPH SOLN 5 ML BOTTLE BOTH EYES SCH ×3 (08:30→20:54)
[2019-11-29] MEDS: carvediloL 3.125 MG TABLET PO SCH ×2 (08:30→20:53)
[2019-11-29] MEDS: FUROSEMIDE 40 MG TABLET PO SCH (08:30)
[2019-11-29] MEDS: INSULIN REGULAR 100 UNIT/ML SUBCUT SCH ×4 (08:30→20:54)
[2019-11-29] MEDS: DUTASTERIDE 0.5 MG CAPSULE PO SCH (08:30)
[2019-11-29] MEDS: TAMSULOSIN 0.4 MG CAPSULE PO SCH (08:30)
[2019-11-29] MEDS: DESITIN 4OZ/NYSTATIN 15 GRAM MIXTURE PASTE TOP SCH ×2 (08:31→20:54)
[2019-11-29] MEDS: ENOXAPARIN 40 MG/0.4 ML SYRINGE SUBCUT SCH (08:33)
[2019-11-29] MEDS: MULTIVITAMIN (CENTRUM) TABLET PO SCH (08:33)
[2019-11-29] MEDS: SIMVASTATIN 40 MG TABLET PO SCH (20:53)
[2019-11-29] MEDS: QUEtiapine 25 MG TABLET PO SCH (20:53)
[2019-11-30] MEDS: INSULIN REGULAR 100 UNIT/ML SUBCUT SCH ×3 (08:14→18:37)
[2019-11-30] MEDS ORDERED: LEVOFLOXACIN 750 MG TABLET PO SCH (09:00)
[2019-11-30] MEDS: FUROSEMIDE 40 MG TABLET PO SCH (09:14)
[2019-11-30] MEDS: ENOXAPARIN 40 MG/0.4 ML SYRINGE SUBCUT SCH (09:14)
[2019-11-30] MEDS: ASPIRIN CHEW 81 MG TABLET PO SCH (09:14)
[2019-11-30] MEDS: carvediloL 3.125 MG TABLET PO SCH (09:14)
[2019-11-30] MEDS: TAMSULOSIN 0.4 MG CAPSULE PO SCH (09:14)
[2019-11-30] MEDS: DUTASTERIDE 0.5 MG CAPSULE PO SCH (09:14)
[2019-11-30] MEDS: allopurinoL 300 MG TABLET PO SCH (09:14)
[2019-11-30] MEDS: BRIMONIDINE 0.1% OPH SOLN 5 ML BOTTLE BOTH EYES SCH ×2 (09:14→18:37)
[2019-11-30] MEDS: PANTOPRAZOLE 40 MG TABLET PO SCH (09:15)
[2019-11-30] MEDS: SACUBITRIL/VALSARTAN 49-51 MG TABLET PO SCH (09:15)
[2019-11-30] MEDS: MULTIVITAMIN (CENTRUM) TABLET PO SCH (09:15)
[2019-11-30] MEDS: DESITIN 4OZ/NYSTATIN 15 GRAM MIXTURE PASTE TOP SCH (10:02)
[2019-11-30] MEDS ORDERED: TUBERCULIN SKIN TEST 0.1 ML SYRINGE INTRADERM ONE (14:24)
[2019-11-30 16:07] VITALS: BP 94/42
== END 2019-11-30 17:59 | disposition home health service (06) | DRG 208 ==
LOC: EDUNIT# → EDBD → N.ED 03:07 → SUATTDRO 05:06 → N.EDINP 05:06 → N.ICU 05:58 → N.TELEN 11-27 17:21
PROVIDERS: ADMIT Internal Medicine; ATTEND Internal Medicine Geriatric Medicine

== ENCOUNTER 2019-12-02 08:47 | Inpatient (IN) ==
[2019-12-02] MEDS ORDERED: SODIUM CHLORIDE 0.9% 500 ML IV STA (09:20)
[2019-12-02] MEDS ORDERED: VANCOMYCIN INJ 1,250 MG in SODIUM CHLORIDE 0.9% 250 ML IV STA (09:20)
[2019-12-02] MEDS ORDERED: DOPamine 800 MG/250 ML PREMIX IV ONE (09:22)
[2019-12-02] MEDS ORDERED: DOPamine 800 MG/250 ML PREMIX IV PRN (09:24)
[2019-12-02 09:32] LABS: Basophils % 0.2 % (0.0-0.8); Eosinophils # 0.4 10*3/uL (0.0-0.87); Eosinophils % 2.4 % (0.00-10.9); Hematocrit 34.3 VOL% (42.0-52.0); Immature Granulocytes % 1.3 %; Immature Granulocytes Absolute 0.23 #; Lymphocytes # 7.3 10*3/uL (1.4-4.0); Lymphocytes % 41.2 % (21.2-54.2); Mean Corpuscular HGB Conc 31.8 GM/DL (32-36); Mean Corpuscular Volume 95.8 FL (87-102); Mean Platelet Volume 11.5 FL (9.6-12.0); Monocytes % 8.7 % (1.7-12.7); Neutrophils % 46.2 % (38.7-73.9); Red Blood Count 3.58 MC/CUMM (3.8-5.5); White Blood Count 17.8 T/CUMM (4-12)
[2019-12-02 09:34] LABS: Hemoglobin 10.9 GM/DL (14.0-18.0); Platelet Count 126 T/CUMM (130-400)
[2019-12-02] MEDS ORDERED: CIPROFLOXACIN INJ 400 MG in PREMIX 1 EACH IV STA (09:35)
[2019-12-02] MEDS ORDERED: VANCOMYCIN 1,000 MG VIAL ONE (09:44)
[2019-12-02 09:59] LABS: Hypochromasia 1+
[2019-12-02 10:00] LABS: Microcytosis 1+; Platelet Estimate Adequate
[2019-12-02 10:37] LABS: Albumin 2.4 G/DL (3.4-5.0); Bilirubin,Total 0.8 MG/DL (0.2-1.0); Calcium 8.2 MG/DL (8.5-10.1); Osmolality,Calculated 292.2 MOS/KG (273-304); Total Protein 5.1 G/DL (6.4-8.3)
[2019-12-02 17:06] LABS: Apearance,Urine Slightly Hazy (Clear); Bacteria,Urine Occasional /HPF (Few); Bilirubin,Urine Negative (Negative); Blood, Urine Negative (Negative); Glucose,Urine (UA) Negative (Negative); Ketones,Urine Negative (Negative); Mucus,Urine Occasional /LPF (Occasional); Nitrite,Urine Negative (Negative); Protein,Urine Negative; RBC,Urine 2 /HPF (0-4); Squamous Epithelial Cell,Urine Occasional /HPF (0-10); Urine Color Yellow (Yellow); Urine Specific Gravity 1.014 (1.001-1.035); Urine Urobilinogen < 2.0 EU/DL (0.2-1.0); WBC,Urine 5 /HPF (0-6)
[2019-12-02] MEDS ORDERED: NON-FORMULARY MEDICATION (Omeprazole 40 MG) PO SCH (17:42)
[2019-12-02] MEDS ORDERED: GLUCAGON 1 MG VIAL IM PRN (17:42)
[2019-12-02] MEDS ORDERED: DUTASTERIDE 0.5 MG CAPSULE PO SCH (17:42)
[2019-12-02] MEDS ORDERED: ASPIRIN EC 81 MG TABLET PO SCH (17:42)
[2019-12-02] MEDS ORDERED: ALBUTEROL/IPRATROPIUM 3 ML NEB RESP TX PRN (17:42)
[2019-12-02] MEDS ORDERED: PANTOPRAZOLE 40 MG TABLET PO SCH (17:42)
[2019-12-02] MEDS ORDERED: MULTIVITAMIN (CENTRUM) TABLET PO SCH (17:42)
[2019-12-02] MEDS ORDERED: allopurinoL 300 MG TABLET PO SCH (17:42)
[2019-12-02] MEDS ORDERED: INSULIN LISPRO 100 UNIT/ML SUBCUT SCH (17:42)
[2019-12-02] MEDS ORDERED: FINASTERIDE 5 MG TABLET PO SCH (17:42)
[2019-12-02] MEDS ORDERED: TAMSULOSIN 0.4 MG CAPSULE PO SCH (17:42)
[2019-12-02] MEDS ORDERED: DEXTROSE 10% 250 ML BAG IV PRN (17:42)
[2019-12-02] MEDS ORDERED: POTASSIUM CHLORIDE 20 MEQ TABLET PO ONE ×2 (20:24→22:30)
[2019-12-02] MEDS: ONDANSETRON 4 MG/2 ML VIAL IV PRN (20:25)
[2019-12-02] MEDS ORDERED: PHENYLEPHRINE DRIP 40 MG/250 ML PREMIX IV ONE (20:34)
[2019-12-02] MEDS: PHENYLEPHRINE DRIP 40 MG/250 ML PREMIX IV PRN (20:35)
[2019-12-02] MEDS ORDERED: SACUBITRIL/VALSARTAN 49-51 MG TABLET PO SCH (21:00)
[2019-12-02] MEDS ORDERED: ENOXAPARIN 30 MG/0.3 ML SYRINGE SUBCUT SCH (21:00)
[2019-12-02] MEDS: MULTIVITAMIN (CENTRUM) TABLET PO SCH (21:56)
[2019-12-02] MEDS: INSULIN LISPRO 100 UNIT/ML SUBCUT SCH (21:56)
[2019-12-02] MEDS: DUTASTERIDE 0.5 MG CAPSULE PO SCH (21:56)
[2019-12-02] MEDS: FLUTICASONE 50 MCG NASAL SPRAY 16 GM BOTTLE BOTH NARES SCH (21:56)
[2019-12-02] MEDS: ASPIRIN EC 81 MG TABLET PO SCH (21:56)
[2019-12-02] MEDS: BRIMONIDINE 0.1% OPH SOLN 5 ML BOTTLE BOTH EYES SCH (21:56)
[2019-12-02] MEDS: TAMSULOSIN 0.4 MG CAPSULE PO SCH (21:56)
[2019-12-02] MEDS: PANTOPRAZOLE 40 MG TABLET PO SCH (21:57)
[2019-12-02] MEDS: FINASTERIDE 5 MG TABLET PO SCH (21:57)
[2019-12-02] MEDS: DESITIN 4OZ/NYSTATIN 15 GRAM MIXTURE PASTE TOP SCH (21:58)
[2019-12-02] MEDS: THEOPHYLLINE ER (24 HR) 400 MG TABLET PO SCH (21:58)
[2019-12-02] MEDS: allopurinoL 300 MG TABLET PO SCH (21:58)
[2019-12-02] MEDS: SIMVASTATIN 40 MG TABLET PO SCH (21:58)
[2019-12-02] MEDS: QUEtiapine 25 MG TABLET PO SCH (21:58)
[2019-12-03] MEDS: ONDANSETRON 4 MG/2 ML VIAL IV PRN (00:25)
[2019-12-03 04:40] LABS: Basophils # 0.1 10*3/uL (0.0-0.2); Basophils % 0.3 % (0.0-0.8); Eosinophils # 0.4 10*3/uL (0.0-0.87); Eosinophils % 1.5 % (0.00-10.9); Hemoglobin 11.9 GM/DL (14.0-18.0); Immature Granulocytes % 2.5 %; Immature Granulocytes Absolute 0.71 #; Lymphocytes # 13.4 10*3/uL (1.4-4.0); Lymphocytes % 46.6 % (21.2-54.2); Mean Corpuscular HGB Conc 32.2 GM/DL (32-36); Mean Corpuscular Volume 94.6 FL (87-102); Mean Platelet Volume 11.6 FL (9.6-12.0); Neutrophils % 42.1 % (38.7-73.9); Platelet Count 153 T/CUMM (130-400); Red Blood Count 3.91 MC/CUMM (3.8-5.5); Red Cell Distribution Width 12.7 % (9.3-17.3); White Blood Count 28.7 T/CUMM (4-12)
[2019-12-03 05:09] LABS: Calcium 8.5 MG/DL (8.5-10.1); Eosinophils 2 % (0-10); Hypochromasia 1+; Lymphocytes 33 % (20-55); Osmolality,Calculated 292.7 MOS/KG (273-304); Platelet Estimate Adequate; Segmented Neutrophils 58 % (50-85); Total Cells Counted 100; Troponin I 0.024 NG/ML (0.00-0.045)
[2019-12-03 05:10] LABS: Atypical Lymphocytes Few; Microcytosis 1+; Smudge Cells Few
[2019-12-03] MEDS: INSULIN LISPRO 100 UNIT/ML SUBCUT SCH ×4 (07:32→20:39)
[2019-12-03] MEDS: PHENYLEPHRINE DRIP 40 MG/250 ML PREMIX IV PRN ×3 (07:33→19:45)
[2019-12-03] MEDS: FINASTERIDE 5 MG TABLET PO SCH (09:03)
[2019-12-03] MEDS: DESITIN 4OZ/NYSTATIN 15 GRAM MIXTURE PASTE TOP SCH ×2 (09:03→20:39)
[2019-12-03] MEDS: DUTASTERIDE 0.5 MG CAPSULE PO SCH (09:03)
[2019-12-03] MEDS: TAMSULOSIN 0.4 MG CAPSULE PO SCH (09:03)
[2019-12-03] MEDS: allopurinoL 300 MG TABLET PO SCH (09:03)
[2019-12-03] MEDS: THEOPHYLLINE ER (24 HR) 400 MG TABLET PO SCH (09:03)
[2019-12-03] MEDS: MULTIVITAMIN (CENTRUM) TABLET PO SCH (09:03)
[2019-12-03] MEDS: BRIMONIDINE 0.1% OPH SOLN 5 ML BOTTLE BOTH EYES SCH ×3 (09:03→21:42)
[2019-12-03] MEDS: ASPIRIN EC 81 MG TABLET PO SCH (09:03)
[2019-12-03] MEDS: PANTOPRAZOLE 40 MG TABLET PO SCH (09:03)
[2019-12-03] MEDS: ENOXAPARIN 40 MG/0.4 ML SYRINGE SUBCUT SCH (20:38)
[2019-12-03] MEDS: SIMVASTATIN 40 MG TABLET PO SCH (20:39)
[2019-12-03] MEDS: FLUTICASONE 50 MCG NASAL SPRAY 16 GM BOTTLE BOTH NARES SCH (20:39)
[2019-12-03] MEDS: QUEtiapine 25 MG TABLET PO SCH (20:39)
[2019-12-04] MEDS: PHENYLEPHRINE DRIP 40 MG/250 ML PREMIX IV PRN ×4 (00:23→13:32)
[2019-12-04] MEDS: FINASTERIDE 5 MG TABLET PO SCH (08:30)
[2019-12-04] MEDS: DUTASTERIDE 0.5 MG CAPSULE PO SCH (08:31)
[2019-12-04] MEDS: MULTIVITAMIN (CENTRUM) TABLET PO SCH (08:31)
[2019-12-04] MEDS: THEOPHYLLINE ER (24 HR) 400 MG TABLET PO SCH (08:32)
[2019-12-04 08:33] LABS: Basophils # 0.1 10*3/uL (0.0-0.2); Basophils % 0.3 % (0.0-0.8); Eosinophils # 0.4 10*3/uL (0.0-0.87); Eosinophils % 1.3 % (0.00-10.9); Hematocrit 33.7 VOL% (42.0-52.0); Hemoglobin 10.5 GM/DL (14.0-18.0); Immature Granulocytes Absolute 0.64 #; Lymphocytes # 15.8 10*3/uL (1.4-4.0); Lymphocytes % 49.5 % (21.2-54.2); Mean Corpuscular HGB Conc 31.2 GM/DL (32-36); Mean Corpuscular Volume 98.3 FL (87-102); Monocytes % 5.5 % (1.7-12.7); Neutrophils % 41.4 % (38.7-73.9); Platelet Count 173 T/CUMM (130-400); Red Blood Count 3.43 MC/CUMM (3.8-5.5); Red Cell Distribution Width 13.2 % (9.3-17.3); White Blood Count 31.9 T/CUMM (4-12)
[2019-12-04] MEDS: PANTOPRAZOLE 40 MG TABLET PO SCH (08:33)
[2019-12-04] MEDS: TAMSULOSIN 0.4 MG CAPSULE PO SCH (08:33)
[2019-12-04] MEDS: INSULIN LISPRO 100 UNIT/ML SUBCUT SCH ×4 (08:42→22:54)
[2019-12-04 08:44] LABS: Calcium 8.2 MG/DL (8.5-10.1); Osmolality,Calculated 288.3 MOS/KG (273-304)
[2019-12-04] MEDS: ASPIRIN EC 81 MG TABLET PO SCH (08:47)
[2019-12-04] MEDS: allopurinoL 300 MG TABLET PO SCH (08:47)
[2019-12-04] MEDS: DESITIN 4OZ/NYSTATIN 15 GRAM MIXTURE PASTE TOP SCH ×2 (08:47→22:55)
[2019-12-04] MEDS ORDERED: POTASSIUM CHLORIDE 20 MEQ TABLET PO ONE (08:49)
[2019-12-04 09:36] LABS: Eosinophils 1 % (0-10); Lymphocytes 46 % (20-55); Platelet Estimate Adequate; Segmented Neutrophils 49 % (50-85); Total Cells Counted 100
[2019-12-04 09:37] LABS: Atypical Lymphocytes Few; Hypochromasia 1+; Microcytosis 1+
[2019-12-04] MEDS: POTASSIUM CHLORIDE RIDER 10 MEQ in PREMIX 1 EACH IV SCH ×4 (10:10→15:16)
[2019-12-04] MEDS: BRIMONIDINE 0.1% OPH SOLN 5 ML BOTTLE BOTH EYES SCH ×3 (11:20→21:45)
[2019-12-04] MEDS ORDERED: SIMETHICONE CHEW 125 MG TABLET PO PRN (12:23)
[2019-12-04] MEDS ORDERED: AMIODARONE INJ 450 MG in DEXTROSE 5% 241 ML IV SCH ×2 (12:30→18:30)
[2019-12-04] MEDS ORDERED: AMIODARONE 200 MG TABLET PO SCH (13:00)
[2019-12-04] MEDS: AMIODARONE 200 MG TABLET PO SCH ×2 (13:30→22:10)
[2019-12-04] MEDS: FLUTICASONE 50 MCG NASAL SPRAY 16 GM BOTTLE BOTH NARES SCH (21:45)
[2019-12-04] MEDS: QUEtiapine 25 MG TABLET PO SCH (22:10)
[2019-12-04] MEDS: ENOXAPARIN 40 MG/0.4 ML SYRINGE SUBCUT SCH (22:54)
[2019-12-05 05:35] LABS: Basophils % 0.3 % (0.0-0.8); Eosinophils # 0.5 10*3/uL (0.0-0.87); Eosinophils % 3.1 % (0.00-10.9); Hematocrit 36.1 VOL% (42.0-52.0); Hemoglobin 11.3 GM/DL (14.0-18.0); Immature Granulocytes % 1.9 %; Immature Granulocytes Absolute 0.28 #; Lymphocytes # 6.5 10*3/uL (1.4-4.0); Lymphocytes % 44.8 % (21.2-54.2); Mean Corpuscular HGB Conc 31.3 GM/DL (32-36); Mean Corpuscular Volume 99.2 FL (87-102); Mean Platelet Volume 11.5 FL (9.6-12.0); Monocytes % 6.4 % (1.7-12.7); Neutrophils % 43.5 % (38.7-73.9); Platelet Count 129 T/CUMM (130-400); Red Blood Count 3.64 MC/CUMM (3.8-5.5); Red Cell Distribution Width 13.2 % (9.3-17.3); White Blood Count 14.4 T/CUMM (4-12)
[2019-12-05 05:46] LABS: Calcium 8.6 MG/DL (8.5-10.1); Osmolality,Calculated 280.4 MOS/KG (273-304)
[2019-12-05 06:13] LABS: Hypochromasia 1+; Microcytosis Slight; Platelet Estimate Normal
[2019-12-05] MEDS: INSULIN LISPRO 100 UNIT/ML SUBCUT SCH (07:35)
[2019-12-05] MEDS: DUTASTERIDE 0.5 MG CAPSULE PO SCH (08:03)
[2019-12-05] MEDS: FINASTERIDE 5 MG TABLET PO SCH (08:03)
[2019-12-05] MEDS: AMIODARONE 200 MG TABLET PO SCH (08:03)
[2019-12-05] MEDS: MULTIVITAMIN (CENTRUM) TABLET PO SCH (08:03)
[2019-12-05] MEDS: allopurinoL 300 MG TABLET PO SCH (08:03)
[2019-12-05] MEDS: DESITIN 4OZ/NYSTATIN 15 GRAM MIXTURE PASTE TOP SCH (08:04)
[2019-12-05] MEDS: ASPIRIN EC 81 MG TABLET PO SCH (08:04)
[2019-12-05] MEDS: BRIMONIDINE 0.1% OPH SOLN 5 ML BOTTLE BOTH EYES SCH (08:04)
[2019-12-05] MEDS: PANTOPRAZOLE 40 MG TABLET PO SCH (08:04)
[2019-12-05] MEDS: TAMSULOSIN 0.4 MG CAPSULE PO SCH (08:04)
[2019-12-05] MEDS ORDERED: AMIODARONE 200 MG TABLET PO SCH (09:00)
[2019-12-05 10:09] VITALS: BP 127/46
== END 2019-12-05 10:05 | disposition hospice, home (50) | DRG 292 ==
LOC: EDUNIT# → EDBD → N.ED 08:47 → N.EDINP 09:58 → SUATTDRO 09:58 → N.ICU 16:09
PROVIDERS: ADMIT Internal Medicine; ATTEND Internal Medicine